=== PATIENT | female | born 1990 | race Caucasian/White ===

== ENCOUNTER 2020-10-05 11:19 | Outpatient (REF) | payer MEDICARE, MEDICAID, SELFPAY ==
[2020-10-05 14:35] LABS: Alanine Aminotransferase 52 U/L (0-31); Albumin Level 4.3 g/dL (3.5-5.0); Alkaline Phosphatase 65 U/L (39-117); Anion Gap 13 (12-20); Aspartate Amino Transferase 39 U/L (5-31); Bilirubin Total 0.6 mg/dL (0.0-1.0); Blood Urea Nitrogen 13 mg/dL (9-16); C Reactive Protein 0.17 mg/dL (< or = 0.50); Carbon Dioxide 26 mmol/L (22-29); Chloride 104 mmol/L (96-108); Estimated Glomerular Filt Rate > 60; Glucose Fasting 83 mg/dL (60-99); Potassium 3.8 mmol/l (3.3-5.1); Sodium 139 mmol/L (135-145); Total Protein 7.4 g/dL (6.5-8.0)
[2020-10-05 14:57] LABS: TSH reflex Free T4 1.43 mIU/mL (0.32-4.0)
[2020-10-05 15:11] LABS: Folate 18.4 ng/mL (> or = 4.0); Vitamin B12 327 pg/mL (200-900)
[2020-10-05 16:17] LABS: Erythrocyte Sedimentation Rate 20 MM/HR (0-20)
[2020-10-07 13:42] LABS: Anti Nuclear Antibody Screen NEGATIVE (NEGATIVE)
== END 2020-10-05 11:20 | disposition home or self-care (01) ==
LOC: HO.HMGCLDS 11:19
PROVIDERS: PCP Internal Medicine; Visit Provider Internal Medicine
DX: D22.9 Melanocytic nevi, unspecified (principal); L98.9 Disorder of the skin and subcutaneous tissue, unspecified; R20.0 Anesthesia of skin; R20.2 Paresthesia of skin
CPT/HCPCS: 36415; 80053; 82306; 82607; 82746; 84443; 85652; 86038; 86039; 86140

== ENCOUNTER 2021-03-10 12:00 | Outpatient (REF) | payer MEDICARE, MEDICAID, SELFPAY ==
[2021-03-12 21:31] LABS: HCV RNA PCR Qn 242000 IU/mL (NOT DETECTED); HCV RNA PCR Qn 5.38 Log IU/mL (NOT DETECTED)
[2021-03-17 16:16] LABS: HCV Genotype LiPA 1a
== END 2021-03-10 12:01 | disposition home or self-care (01) ==
LOC: HO.HMGCLDS 12:00
PROVIDERS: PCP Internal Medicine; Visit Provider Internal Medicine
DX: Z86.19 Personal history of other infectious and parasitic diseases (principal)
CPT/HCPCS: 36415; 87522; 87902

== ENCOUNTER 2021-05-20 10:09 | Outpatient (REF) | payer MEDICARE, MEDICAID, SELFPAY ==
[2021-05-20 12:08] LABS: MANUAL DIFF FLAG NO
[2021-05-20 12:17] LABS: Basophils Percent Auto 0.9 % (0-2); Eosinophils Absolute Auto 0.1 X10*3/uL (0.0-0.4); Eosinophils Percent Auto 2.4 % (0-4); Hematocrit 38.4 % (37-47); Hemoglobin 12.7 g/dl (12.0-16.0); Imm Gran Abs Auto 0.01 X10*3/uL (0.00-0.03); Imm Gran Pct Auto 0.2 % (0.0-0.4); Lymphocytes Absolute Auto 1.9 X10*3/uL (1.2-4.9); Lymphocytes Percent Auto 42.4 % (20-40); Mean Corpuscular HGB Conc 33.1 g/dl (31.0-35.0); Mean Corpuscular Volume 90.6 fL (80-98); Mean Platelet Volume 10.8 fL (9.4-12.3); Monocytes Absolute Auto 0.4 X10*3/uL (0.1-1.2); Monocytes Percent Auto 7.9 % (2-11); Neutrophils Absolute Auto 2.1 X10*3/uL (2.0-8.3); Neutrophils Percent Auto 46.2 % (45-73); Platelet Count 206 X10*3/uL (160-400); Red Blood Count 4.24 X10*6/uL (4.20-5.50); White Blood Count 4.6 X10*3/uL (4.8-10.8)
[2021-05-20 12:32] LABS: Alanine Aminotransferase 72 U/L (0-31); Alkaline Phosphatase 48 U/L (39-117); Anion Gap 12 (12-20); Aspartate Amino Transferase 55 U/L (5-31); Bilirubin Total 0.4 mg/dL (0.0-1.0); Blood Urea Nitrogen 12 mg/dL (9-16); Calcium 9.3 mg/dL (8.4-10.2); Carbon Dioxide 24 mmol/L (22-29); Chloride 107 mmol/L (96-108); Estimated Glomerular Filt Rate > 60; Glucose Random 102 mg/dL (60-115); Potassium 4.1 mmol/L (3.3-5.1); Sodium 139 mmol/L (135-145); Total Protein 7.1 g/dL (6.5-8.0)
[2021-05-20 12:55] LABS: HBS Num1 > 1000.00 mIU/mL (0-7.99); ~Hepatitis B Surface Antibody REACTIVE (Nonreactive)
[2021-05-20 12:59] LABS: HBc Num1 0.23 S/CO (0.00-0.79); HBsAGNum1 0.18 S/CO (0.00-0.99); Hepatitis A Antibody IgM 0.24 Index (0-0.79); Hepatitis B Core Antibody Nonreactive (Nonreactive); Hepatitis B Surface Antigen Negative (Negative); ~HepC Num1 16.63 S/CO (0.00-0.79); ~Hepatitis A Antibody IgM Nonreactive (Nonreactive); ~Hepatitis C Antibody Reactive (Nonreactive)
[2021-05-25 15:42] LABS: HCV Genotype PCR 1a
[2021-05-26 09:32] LABS: FIB-ALT 63 U/L (6-29); FIB-Alpha-2-Macroglobulin 196 mg/dL (106-279); FIB-Apolipoprotein A1 161 mg/dL (101-198); FIB-GGT 18 U/L (3-50); FIB-Haptoglobin 65 mg/dL (43-212); FIB-Total Bilirubin 0.4 mg/dL (0.2-1.2); Liver Fibrosis Stage F0; Nec Inflam Act Grade A1; Nec Inflam Act Score 0.31
== END 2021-05-20 10:10 | disposition home or self-care (01) ==
LOC: HO.LAB 10:09
PROVIDERS: PCP Internal Medicine; Referring Provider Internal Medicine; Visit Provider Internal Medicine Gastroenterology
DX: R76.8 Other specified abnormal immunological findings in serum (principal); K75.81 Nonalcoholic steatohepatitis (NASH)
CPT/HCPCS: 36415; 80053; 81596; 85025; 85610; 86704; 86706; 86709; 86803; 87340; 99202

== ENCOUNTER 2022-12-29 18:48 | Inpatient (IN) | payer MEDICARE, MEDICAID, SELFPAY ==
--- NOTE | ~2022-12-29 | XR_ITS ---
EXAMINATION: XR PELVIS CLINICAL INFORMATION: Right femoral fracture. Pain. COMPARISON: None available. TECHNIQUE: AP view of the pelvis. FINDINGS: Redemonstration of the fracture of the distal femoral neck. No other fracture. Pelvis is normal. No fracture of the left hip. XR/XR pelvis 1-2V IMPRESSION: Redemonstration of fracture of the distal right femoral neck. No additional fracture.
--- NOTE | ~2022-12-29 | FL_ITS ---
EXAMINATION: XR FLUOROSCOPY WITH IMAGES CLINICAL INFORMATION: Right percutaneous pinning. COMPARISON: None available. TECHNIQUE: Fluoroscopy Supervised By: Dr. Syed velasquez. Fluoroscopy Time: 1.3 minutes. Cumulative Dose: 74.7 mGy. DAP: 1.29 Gycm2. Images: 4. FINDINGS: There are 4 digital images revealing 3 screws through the right femoral neck stabilizing femoral neck fracture. There is no dislocation. The soft tissues are normal. FL/FL guidance in OR IMPRESSION: Status post pinning of right femoral neck fracture with [address]
--- NOTE | ~2022-12-29 | XR_ITS ---
EXAMINATION: XR FEMUR, RIGHT CLINICAL INFORMATION: Pain. COMPARISON: None available. TECHNIQUE: AP and lateral views of the right femur were obtained. FINDINGS: Mildly impacted basicervical right femoral neck fracture. The femoral head remains well-seated in the acetabula. No other fractures. No unexpected radiopaque foreign bodies. XR/XR femur RT 2V IMPRESSION: Mildly impacted basicervical right femoral neck fracture.
[2022-12-29 18:54] VITALS: BP 132/84; PULSE 68; O2SAT 99
[2022-12-29 19:04] VITALS: BP 131/85; PULSE 74; RESP 18; TEMP 36.8; O2SAT 96; BMI 29.7
[2022-12-29 20:00] VITALS: BP 110/80; RESP 16; TEMP 36.8
--- NOTE | 2022-12-29 20:41 | ED_ITS ---
HPI - General Adult General Chief complaint: Extremity Injury, Lower Stated complaint: Rt leg pain for 1 hour while walking Time Seen by Provider: 12/29/22 20:41 Source: patient and EMS Mode of arrival: EMS Limitations: no limitations History of Present Illness HPI narrative: Patient is a 32 year old assigned female at with a history of substance use disorder, on methadone, presenting to the emergency department today with right hip pain. Patient states that she was walking around outside when she began to have some mild right hip pain. Patient states that she tried multiple stretches and the pain got significantly worse. Patient adamantly denies any trauma and states that she is safe at home. Patient denies any dizziness, lightheadedness, abdominal pain, nausea, vomiting, fever, chills, blurry vision, double vision, loss of vision, chest pain, difficulty breathing, shortness of breath, back pain, night sweats, pain with urination, increased urinary frequency, increased urinary urgency, blood in her urine or stool, syncope or a near syncopal episode, bowel incontinence, bladder incontinence, bowel retention, bladder retention, or any other complaints at this time. Onset (ago): hour(s) Location: right and lower extremity Radiation: non-radiation Severity: moderate Severity scale (1-10): 5 Pain Consistency: constant Relieving factors: none Exacerbating factors: movement Associated symptoms: denies other symptoms Treatments prior to arrival: none Related Data Home Medications Medication Instructions Recorded Confirmed methadone 5 mg/5 mL oral solution 75 mg PO DAILY 12/25/22 Previous Rx's Medication Instructions Recorded albuterol sulfate 90 mcg/actuation 1 inh inhalation QID PRN shortness 12/25/22 aerosol inhaler (Ventolin HFA) of breath or wheezing #8.5 grams Allergies Allergy/AdvReac Type Severity Reaction Status Date / Time tramadol [Ultram] Allergy Unknown rash Verified 12/25/22 12:48 lorazepam [From ATIVAN] AdvReac Intermediate ANXIETY Verified 12/25/22 12:48 acetaminophen [From TYLENOL] AdvReac Unknown STOMACH Verified 12/25/22 12:48 UPSET clonazepam [From KLONOPIN] AdvReac Unknown ADVERSE Verified 12/25/22 12:48 REACTION Review of Systems Constitutional: Constitutional: Reports no additional constitutional complaints, Denies chills, Denies fever(s) and Denies night sweats Eyes: Eyes: Reports no additional eye complaints, Denies blurry vision, Denies change in vision, Denies diplopia, Denies eye discharge, Denies loss of vision and Denies eye pain ENT: Denies dizziness Cardiovascular: Cardiovascular: Reports no additional cardiovascular complaints, Denies chest pain, Denies lightheadedness, Denies Loss of Consciousness and Denies dyspnea Respiratory: Respiratory: Reports no additional respiratory complaints and Denies dyspnea Gastrointestinal: Gastrointestinal: Reports no additional gastrointestinal complaints, Denies abdominal pain, Denies melena, Denies hematochezia, Denies change in bowel habits and Denies change in stool character Genitourinary: Genitourinary: Denies hematuria, Denies urinary frequency, Denies dysuria, Denies urinary incontinence, Denies urinary hesitancy and Denies urinary urgency Musculoskeletal: Musculoskeletal: Reports no additional musculoskeletal complaints, Denies numbness and Denies tingling Comments: right hip pain Neurologic: Denies dizziness, Denies loss of vision, Denies numbness and Denies tingling Psychiatric: Psychiatric: Reports no additional psychiatric complaints Endocrine: Endocrine: Reports no additional endocrine complaints Hematologic/Lymphatic: Hematologic/Lymphatic: Reports no additional hematologic/lymphatic complaints Allergic/Immunologic: Allergic/Immunologic: Reports no additional allergic/immunologic complaints [facility] Past Medical History Attestation statement: The following information was validated with the patient. Source: old records reviewed and nursing notes reviewed Medical History Bipolar 1 disorder Hepatitis C antibody test positive Hx of hepatitis C Numbness and tingling of both upper extremities Numerous moles Polysubstance abuse Skin lesion of left arm Suicide attempt Surgical History No pertinent past surgical history Family History Family History Father Sleep apnea Diabetes mellitus Diabetic neuropathy Mother Multiple sclerosis Colitis Fibromyalgia Maternal Grandfather CVD (cardiovascular disease) Kidney disease Heart disease Maternal Grandmother Lupus Arthritis Rheumatoid arthritis Paternal Grandfather No problems noted. Paternal Grandmother No problems noted. Brother No problems noted. Sister No problems noted. Son No problems noted. Son No problems noted. Social History Social History Household Members: Family Household Members Other:: RENTS A ROOM Alcohol intake: former Patient Tobacco Use Status: Current everyday Tobacco user Cigarette Packs Per Day: 0.5 Smoked in Last 30 Days: Yes Use of substances other than those prescribed or required for medical reasons: No Substance Use Type: Marijuana Advance Directives: No Advance Directives Information Provided: No Patient : No Current occupational status: disabled Physical Exam ED Vital Signs: Vital Signs - 24 hr 12/29/22 19:04 12/29/22 20:00 Temperature 98.3 F 98.3 F Pulse Rate 74 Respiratory Rate 18 16 Blood Pressure 131/85 110/80 Pulse Oximetry 96 Oxygen Delivery Method Room Air BMI result Body Mass Index 29.7 Const General: cooperative, no acute distress, alert and awake Nutritional Appearance: well nourished Orientation/consciousness: patient oriented x3 Limitations: no limitations HENMT Head: Yes normal to inspection and Yes atraumatic Ears: hearing grossly normal bilaterally and external ears normal General nose exam: Normal external nose present, no nasal discharge noted and no epistaxis Face and sinus: Yes normal facial exam, No abrasion and No laceration Mouth: Normal oral and palatal mucosa present, no drooling and no muffled voice Eyes General: appearance normal, both eyes and all related structures Periorbital: periorbital findings normal Eyelids: Yes eyelids normal Conjunctivae: conjunctivae normal Pupils: Equal, round and reactive pupils present EOM: EOMs intact bilaterally Neck Neck: Yes normal visual inspection, Yes full ROM and Yes no lymphadenopathy Chest Chest palpation & inspection: normal inspection of the chest Resp Effort & Inspection: normal respiratory effort and able to speak in complete sentences Auscultation: clear to auscultation bilaterally Cardio Rate: regular rate Rhythm: regular rhythm GI Inspection: Yes normal to inspection Palpation (GI): Soft to palpation, not firm, nontender and no guarding Back/Spine/Pelvis Cervical Spine: cervical ROM normal Thoracic/Lumbar Spine: thoraco-lumbar ROM normal Pelvis: Other pelvic findings (pain with palpation of the right hip) Coccyx: Other pelvic findings (pain with palpation of the right hip) Neuro General: patient oriented x3 and moves all extremities Cranial nerves: Yes Equal, round and reactive pupils present Cognition (Neuro): normal cognition Motor exam (neuro): 5/5 motor strength present throughout Sensory Exam: Normal double simultaneous stimulation for sensation Coordination: [id number] test normal Extrem General: Yes normal to inspection and Yes capillary refill normal Psych Appearance: grossly normal Mental Status: mental status grossly normal Affect: normal affect Attitude: cooperative Thought process: Normal thought process present Thought content: Normal thought content present Insight: Good insight present (Psych) Medical Decision Making Medical Decision Making MDM Narrative: Patient is a 32 year old assigned female at with a history of substance use disorder, on methadone, presenting to the emergency department today with right hip pain. Patient's physical exam showed right hip pain to palpation. Patient's blood work is pending. Patient's right hip x-ray showed a mildly impacted basicervical right femoral neck fracture. I explained my physical exam findings as well as all test results to the patient. I answered all questions asked by the patient. I spoke to the orthopedic team who agreed to admission with surgery planned for the morning. Patient to be NPO after midnight. Patient verbalized agreement and understanding with this treatment plan and admission. Differential Diagnosis Differential Diagnoses: The differential diagnosis associated with the presentation includes right femur fracture Consult Healthcare Provider Management of the patient was discussed with: Senior Windows Systems Engineer (spoke to the orthopedic team who recommended admission for surgery tomorrow morning) Independent Interpretation I performed an independent interpretation of an: Plain X-Ray Interpretation: My interpretation is in agreement with the radiologist's impression of this imaging study. EXAMINATION: XR FEMUR, RIGHT CLINICAL INFORMATION: Pain.? COMPARISON: None available.? TECHNIQUE: AP and lateral views of the right femur were obtained. FINDINGS: Mildly impacted basicervical right femoral neck fracture. The femoral head remains well-seated in the acetabula. No other fractures. No unexpected radiopaque foreign bodies.? XR/XR femur RT 2V IMPRESSION: Mildly impacted basicervical right femoral neck fracture. Dictated By: Kerry Oropeza Signed By: Electronically signed by Kerry?Sandip 12/29/222031 Independent Historian Clinical information obtained from an independent historian. History obtained from or confirmed by: EMS Critical Care Time Critical Care Time Critical Care Time: Yes Total Critical Care Time: 30 Attestation: I spent 30 minutes of Critical Care Time with this patient. This does not include time spent on separately reported billable procedures. Discharge Plan Discharge Clinical Impression: Femur fracture Patient Disposition: Admitted As Inpatient Prescriptions: No Action methadone 5 mg/5 mL solution 75 mg PO DAILY albuterol sulfate [Ventolin HFA] 90 mcg/actuation HFA aerosol inhaler 1 inh inhalation QID PRN (Reason: shortness of breath or wheezing) Qty: 8.5 1RF
[2022-12-29 21:25] LABS: COVID-19 Test Negative (Negative); IDNOW Serial# BCCEAD1C
[2022-12-29] MEDS: Morphine Sulfate 4 MG/ML CARTRIDGE IVPUSH (21:27)
[2022-12-29] MEDS: ondansetron HCL 4 MG/2 ML VIAL IVPUSH (21:28)
[2022-12-29 21:36] LABS: Basophils Absolute Auto 0.1 X10*3/uL (0.0-0.2); Basophils Percent Auto 0.4 % (0-2); Eosinophils Absolute Auto 0.1 X10*3/uL (0.0-0.4); Eosinophils Percent Auto 0.4 % (0-4); Hematocrit 42.9 % (37.0-47.0); Imm Gran Abs Auto 0.06 X10*3/uL (0.00-0.03); Imm Gran Pct Auto 0.4 % (0.0-0.4); Lymphocytes Absolute Auto 2.4 X10*3/uL (1.2-4.9); Lymphocytes Percent Auto 18.2 % (20-40); MANUAL DIFF FLAG NO; Mean Corpuscular HGB Conc 32.6 g/dl (31.0-35.0); Mean Corpuscular Hemoglobin 29.9 pg (27.0-33.0); Mean Corpuscular Volume 91.5 fL (80.0-98.0); Mean Platelet Volume 10.4 fL (9.4-12.3); Monocytes Absolute Auto 1.1 X10*3/uL (0.1-1.2); Monocytes Percent Auto 7.8 % (2-11); Neutrophils Absolute Auto 9.8 x10*3/uL (2.0-8.3); Neutrophils Percent Auto 72.8 % (45-73); Platelet Count 215 X10*3/uL (160-400); Red Blood Count 4.69 X10*6/uL (4.20-5.50); Red Cell Distribution Width 13.1 % (11.0-16.0); White Blood Count 13.4 X10*3/uL (4.8-10.8)
--- NOTE | 2022-12-29 21:38 | PHA.MEDREC ---
Pharmacy Consult ? Medication Reconciliation Pharmacy has completed the medication reconciliation. Pt takes celexa 40 mg 1/2 bid and buspar 30 mg bid
--- NOTE | 2022-12-29 21:55 | P.HPOP_ITS ---
History of Present Illness History of Present Illness Date of Service: 12/30/22 <Jazmyne Salguero PA-C - Last Filed: 12/30/22 07:40> 12/30/22 <Isidro Lynch MD - Last Filed: 12/30/22 10:39> Chief complaint: Right femoral neck fracture <aJzmyne Salguero PA-C - Last Filed: 12/30/22 07:40> Narrative: Christine Bean is a 32 year old female with a history of substance use disorder ( slean for 3 years) , on methadone, presenting to the emergency department today with right hip pain. Patient states that she was walking around [place] when she developed right hip pain. She states as she continued to [place] the pain became worse to the point she could no longer walk and EMS was called. Patient denies any trauma or recent injury. While in the ED, xrays were obtained which were significant for a Mildly impacted basicervical right femoral neck fracture.. Due to the urgency of this fracture to maintain blood supply and prevent further displacement, the patient was admitted to the orthopedic service for further surgical planning. She states she lives at home with her mother. She lives on the second floor. She does smoke tobacco, denies alcohol or recreational drug use. She is on Methadone and has been clean x3 year. She is unemployed. No other significant medical history. <Jazmyne Salguero PA-C - Last Filed: 12/30/22 07:40> Review of Systems Review of Systems: per hpi <Jazmyne Salguero PA-C - Last Filed: 12/30/22 07:40> [facility] Past Medical History Medical History: Medical History Bipolar 1 disorder Hepatitis C antibody test positive Hx of hepatitis C Numbness and tingling of both upper extremities Numerous moles Polysubstance abuse Skin lesion of left arm Suicide attempt <Jazmyne Salguero PA-C - Last Filed: 12/30/22 07:40> Family History Family History: Family History Father Sleep apnea Diabetes mellitus Diabetic neuropathy Mother Multiple sclerosis Colitis Fibromyalgia Maternal Grandfather CVD (cardiovascular disease) Kidney disease Heart disease Maternal Grandmother Lupus Arthritis Rheumatoid arthritis Paternal Grandfather No problems noted. Paternal Grandmother No problems noted. Brother No problems noted. Sister No problems noted. Son No problems noted. Son No problems noted. <Jazmyne Salguero PA-C - Last Filed: 12/30/22 07:40> Surgical History Surgical History: Surgical History No pertinent past surgical history <Jazmyne Salguero PA-C - Last Filed: 12/30/22 07:40> Social History Social History: Social History Household Members: Family Household Members Other:: RENTS A ROOM Alcohol intake: former Patient Tobacco Use Status: Current everyday Tobacco user Cigarette Packs Per Day: 0.5 Smoked in Last 30 Days: Yes Use of substances other than those prescribed or required for medical reasons: No Substance Use Type: Marijuana Advance Directives: No Advance Directives Information Provided: No Nutrition Risks: No Nutritional Risk Patient : No service: No Current occupational status: disabled <Jazmyne Salguero PA-C - Last Filed: 12/30/22 07:40> Meds Allergies/Adverse reactions: Allergies Allergy/AdvReac Type Severity Reaction Status Date / Time tramadol [Ultram] Allergy Unknown rash Verified 12/25/22 12:48 lorazepam [From ATIVAN] AdvReac Intermediate ANXIETY Verified 12/25/22 12:48 acetaminophen [From TYLENOL] AdvReac Unknown STOMACH Verified 12/25/22 12:48 UPSET clonazepam [From KLONOPIN] AdvReac Unknown ADVERSE Verified 12/25/22 12:48 REACTION <Jazmyne Salguero PA-C - Last Filed: 12/30/22 07:40> Active Medications: Current Medications Acetaminophen (Acetaminophen 325 Mg Tablet) 650 mg PO Q6H PRN PRN Reason: Pain, Mild (Pain Scale 1-3) Celecoxib (Celecoxib 200 Mg Capsule) 200 mg PO BID XIMENA Docusate Sodium (Docusate Sodium 100 Mg Capsule) 100 mg PO BID XIMENA Hydromorphone HCl (Hydromorphone Hcl 0.5 Mg/0.5 Ml Syringe) 0.5 mg IVPUSH Q4H PRN; Protocol PRN Reason: Pain, Severe (Pain Scale 7-10) Lactated Ringer's (Lr) 1,000 mls @ 100 mls/hr IVCONT .Q10H [facility] Cefazolin Sodium/Dextrose (Ancef) 2 gm in 50 mls @ 100 mls/hr IV PREOP ONE Stop: 12/30/22 09:29 Ondansetron HCl (Ondansetron Hcl 4 Mg/2 Ml Vial) 4 mg IVPUSH Q8H PRN PRN Reason: Nausea and Vomiting Oxycodone HCl (Oxycodone Hcl Immed Release 5 Mg Tablet) 10 mg PO Q4H PRN PRN Reason: Pain, Moderate (Pain Scale 4-6 Oxycodone HCl (Oxycodone Hcl Er 10 Mg Tab.Er.12h) 10 mg PO BID [facility] Pharmacy Consult (Consult Rx Perform Med Rec) 1 each MISCELLANE ONCE PRN PRN Reason: Consult order Pharmacy Consult (Consult Rx Perform Med Rec) 1 each MISCELLANE ONCE PRN PRN Reason: Consult order Sodium Chloride (0.9 % Sodium Chloride Flush 3 Ml Syringe) 3 ml IVFLUSH QSHIFT [facility] <Jazmyne Salguero PA-C - Last Filed: 12/30/22 07:40> Home medications: Home Medications Medication Instructions Recorded Confirmed Last Taken Type methadone 5 mg/5 mL oral solution 76 mg PO DAILY 12/25/22 12/29/22 History buspirone 30 mg tablet 1 tab PO BID 12/29/22 12/29/22 12/29/22 History citalopram 40 mg tablet 20 mg PO BID 12/29/22 12/29/22 12/29/22 History clonazepam 0.5 mg tablet 1 tab PO DAILY PRN panic attack 12/29/22 12/29/22 12/29/22 History trazodone 50 mg tablet 1 tab PO BEDTIME 12/29/22 12/29/22 12/28/22 History <Jazmyne Salguero PA-C - Last Filed: 12/30/22 07:40> Physical Exam Vital Signs: Vital Signs: Last Vital Signs Temp 98.3 F 12/29/22 20:00 Pulse 74 12/29/22 19:04 Resp 16 12/29/22 20:00 BP 110/80 12/29/22 20:00 Pulse Ox 96 12/29/22 19:04 O2 Del Method 12/29/22 19:04 BMI result Body Mass Index 29.7 <aJzmyne Salguero PA-C - Last Filed: 12/30/22 07:40> Const: General: cooperative and no acute distress <Jazmyne Salguero PA-C - Last Filed: 12/30/22 07:40> Orientation/consciousness: patient oriented x3 <Jazmyne Salguero PA-C - Last Filed: 12/30/22 07:40> Resp: Effort & Inspection: normal respiratory effort and able to speak in complete sentences <Jazmyne Salguero PA-C - Last Filed: 12/30/22 07:40> Cardio: Peripheral pulses: Peripheral pulses 2+ throughout <Jazmyne Salguero PA-C - Last Filed: 12/30/22 07:40> Neuro: General: patient oriented x3 <Jazmyne Salguero PA-C - Last Filed: 12/30/22 07:40> Extrem: Other: Right hip normal to inspection, pain with log roll, unable to SLR. She is able to plantar and dorsi flex the foor and ankle. NVI. <Jazmyne Salguero PA-C Last Filed: 12/30/22 07:40> Results Labs Result Diagrams: 12/29/22 21:24 12/29/22 21:24 <Jazmyne Salguero PA-C - Last Filed: 12/30/22 07:40> Labs: Abnormal lab results 12/29/22 Range/Units 21:24 WBC 13.4 H (4.8-10.8) X10*3/uL Lymph % (Auto) 18.2 L (20-40) % Abs Immat Gran (auto) 0.06 H (0.00-0.03) X10*3/uL Absolute Neuts (auto) 9.8 H (2.0-8.3) x10*3/uL H & H 12/29/22 Range/Units 21:24 Hgb 14.0 (12.0-16.0) g/dl Hct 42.9 (37.0-47.0) % All other labs normal. <Jazmyne Salguero PA-C - Last Filed: 12/30/22 07:40> Assessment and Plan (1) Femur fracture: Status: Acute <Jazmyne Salguero PA-C - Last Filed: 12/30/22 07:40> I discussed the case with Dr Lynch and due to the urgency of this fracture to maintain blood supply and prevent further displacement, the recommendation is surgical intervention. I explained the extent of the injury to the patient along with the recommended plan for surgical intervention. I explained the procedure in detail along with the length of recovery and rehab course. I explained the risk, benefits and alternatives of surgical vs non surgical intervention. Risk of surgical intervention including, but not limited to infection, blood clots, bleeding, non union or malunion and nerve/tissue damage to surrounding areas. Non-surgical intervention could pose a risk of displacement and instability of the fracture, disrupting the blood supply resulting in necrosis of the femoral head. I've answered all their questions and with their understanding they have consented to move forward with Operative Fixation of the right femur . The patient will be T&S, med clearance obtained and NPO after midnight. <Jazmyne Salguero PA-C - Last Filed: 12/30/22 07:40> Time Spent With Patient Time: Total time managing care of this patient today ____ minutes. <Jazmyne Salguero PA-C - Last Filed: 12/30/22 07:40> Quality Stroke Does the patient have a stroke diagnosis?: No <Jazmyne Salguero PA-C - Last Filed: 12/30/22 07:40> VTE Prior VTE?: No <Jazmyne Salguero PA-C - Last Filed: 12/30/22 07:40> VTE Risk Level:: Surgical - high <Jazmyne Salguero PA-C - Last Filed: 12/30/22 07:40> VTE Device Contraindication: N/A - Device Ordered <Jazmyne Salguero PA-C - Last Filed: 12/30/22 07:40> VTE Drug Contraindication: Treatment Not Indicated <Jazmyne Salguero PA-C - Last Filed: 12/30/22 07:40> Procedures Date of Service Date of Service: 12/30/22 <Jazmyne Salguero PA-C - Last Filed: 12/30/22 07:40>
[2022-12-29 22:04] LABS: INTERNATIONAL NORM RATIO 0.9 (0.9-1.1); Prothrombin Time 10.6 SEC (10.0-13.1)
[2022-12-29 22:37] LABS: Anion Gap 12 (12-20); Blood Urea Nitrogen 18 mg/dL (9-16); Calcium 9.2 mg/dL (8.4-10.2); Carbon Dioxide 29 mmol/L (22-29); Chloride 104 mmol/L (96-108); Creatinine Clr Calc Pharmacy 106.3; Estimated Glomerular Filt Rate > 60; Glucose Random 86 mg/dL (60-115); Sodium 141 mmol/L (135-145)
[2022-12-29] MEDS: traZODone HCL 50 MG TABLET PO (22:43)
[2022-12-29] MEDS: Lactated Ringers 1,000 ML 100 ML IVCONT (22:43)
[2022-12-29] MEDS: oxyCODONE HCl ER 10 MG TAB.ER.12H PO (22:43)
--- NOTE | 2022-12-29 22:52 | MHC.CM.PN ---
Addendum entered by Stella Hilliard 12/29/22 22:58: HCP [facility] No ([phone]). Original Note: IMM 12/29. Met with admitted patient with bed assignment pending. NPO after MN-ortho surgical repair of R femoral neck fx. Live with mother on second floor. Has no DME/Services. HCP on file. Verified. Moderna x3. Daily methadone 76 mg. Receives methadone from [facility] in [place] ([phone]). D/C plan: pending ortho recommendations, PT. No referrals made at this time. CM following for discharge planning.
--- NOTE | 2022-12-29 22:55 | PC.NURSE ---
Pt aox3 in no apparent distress. U/S guided IV line (20G) place by MD on 2nd attempt. Pt tolerated well. Medicated as ordered. Will continue to monitor.
[2022-12-30] VITALS (12 sets, daily range): BP systolic 100–138; BP diastolic 62–100; PULSE 50–78; RESP 12–20; TEMP 36.1–37.5; O2SAT 96–100
[2022-12-30] MEDS: 0.9 % Sodium Chloride Flush 3 ML SYRINGE IVFLUSH ×2 (01:47→19:43)
[2022-12-30] MEDS: HYDROmorphone HCl 0.5 MG/0.5 ML SYRINGE IVPUSH ×5 (01:47→19:42)
--- NOTE | 2022-12-30 01:57 | PC.NURSE ---
Pt aox3. Tearful. Reporting pain, 10/10. Medicated as ordered for pain. Pt placed on 2L NC as ordered. 16F dexter cath inserted. 300cc of clear brick colored urine in the collection bag. Pt tolerated well. Incentive spirometer education provided to pt and encouraged use. Pt demonstrated correct use of spirometer.
--- NOTE | 2022-12-30 02:42 | PC.NURSE ---
Pt aox4 resting at the bedside. VSS. Breaths are even, regular, and unlabored. 2L NC in place as ordered. Pt reports obtaining some pain relief with Dilaudid. Pt no longer tearful. Encouraged to continue use of incentive spirometer. LR running at 100ml/hr on L AC as ordered. Will continue to monitor.
--- NOTE | 2022-12-30 05:26 | PC.NURSE ---
Pt asleep at the bedside in no apparent distress. Breaths are even and unlabored with equal chest rises. Will continue to monitor.
[2022-12-30 06:51] LABS: MANUAL DIFF FLAG NO
[2022-12-30 06:52] LABS: Basophils Absolute Auto 0.1 X10*3/uL (0.0-0.2); Basophils Percent Auto 0.9 % (0-2); Eosinophils Absolute Auto 0.1 X10*3/uL (0.0-0.4); Eosinophils Percent Auto 1.2 % (0-4); Hematocrit 40.2 % (37.0-47.0); Hemoglobin 12.8 g/dl (12.0-16.0); Imm Gran Abs Auto 0.02 X10*3/uL (0.00-0.03); Imm Gran Pct Auto 0.2 % (0.0-0.4); Lymphocytes Absolute Auto 2.8 X10*3/uL (1.2-4.9); Lymphocytes Percent Auto 34.4 % (20-40); Mean Corpuscular HGB Conc 31.8 g/dl (31.0-35.0); Mean Corpuscular Hemoglobin 30.1 pg (27.0-33.0); Mean Corpuscular Volume 94.6 fL (80.0-98.0); Mean Platelet Volume 10.3 fL (9.4-12.3); Monocytes Absolute Auto 0.8 X10*3/uL (0.1-1.2); Monocytes Percent Auto 9.9 % (2-11); Neutrophils Absolute Auto 4.3 x10*3/uL (2.0-8.3); Neutrophils Percent Auto 53.4 % (45-73); Platelet Count 187 X10*3/uL (160-400); Red Blood Count 4.25 X10*6/uL (4.20-5.50); Red Cell Distribution Width 13.1 % (11.0-16.0); White Blood Count 8.1 X10*3/uL (4.8-10.8)
--- NOTE | 2022-12-30 07:14 | PC.NURSE ---
attempted to obtain methadone verification from [facility] - facility not open at this time
[2022-12-30 07:15] LABS: Anion Gap 14 (12-20); Blood Urea Nitrogen 16 mg/dL (9-16); Calcium 8.3 mg/dL (8.4-10.2); Carbon Dioxide 22 mmol/L (22-29); Chloride 107 mmol/L (96-108); Creatinine Clr Calc Pharmacy 125.9; Estimated Glomerular Filt Rate > 60; Glucose Fasting 93 mg/dL (60-99); Potassium 5.5 mmol/L (3.3-5.1); Sodium 137 mmol/L (135-145)
[2022-12-30] MEDS: Lactated Ringers 1,000 ML 100 ML IVCONT ×3 (07:22→23:29)
--- NOTE | 2022-12-30 07:57 | PC.NURSE ---
Methadone Verification completed and sent to pharmacy
--- NOTE | 2022-12-30 08:38 | P.CONAN_ITS ---
HPI - Anesthesia Eval Consult details Narrative: right femur fracture PMFSH Active Problems Active Problems: All Active Problems (Updated 12/29/22 @ 21:07 by CARLITOS Esteban) Femur fracture (Acute) Shortness of breath (Acute) Hepatitis C antibody test positive (Acute) Hx of hepatitis C (Acute) Skin lesion of left arm (Acute) Numerous moles (Acute) Numbness and tingling of both upper extremities (Acute) Polysubstance abuse (Acute) Bipolar 1 disorder (Acute) Past Medical History Medical History (Updated 12/30/22 @ 11:02 by Sylvain Fink MD) Asthma Bipolar 1 disorder Hepatitis C antibody test positive Hx of hepatitis C Numbness and tingling of both upper extremities Numerous moles Polysubstance abuse Skin lesion of left arm Suicide attempt Family History Family History Father Sleep apnea Diabetes mellitus Diabetic neuropathy Mother Multiple sclerosis Colitis Fibromyalgia Maternal Grandfather CVD (cardiovascular disease) Kidney disease Heart disease Maternal Grandmother Lupus Arthritis Rheumatoid arthritis Paternal Grandfather No problems noted. Paternal Grandmother No problems noted. Brother No problems noted. Sister No problems noted. Son No problems noted. Son No problems noted. Family history of problems with anesthesia: No Surgical History Surgical History No pertinent past surgical history History of Problems with Anesthesia: No Social History Social History Household Members: Family Household Members Other:: RENTS A ROOM Alcohol intake: former Patient Tobacco Use Status: Current everyday Tobacco user Cigarette Packs Per Day: 0.5 Smoked in Last 30 Days: Yes Use of substances other than those prescribed or required for medical reasons: No Substance Use Type: Marijuana Advance Directives: No Advance Directives Information Provided: No Nutrition Risks: No Nutritional Risk Patient : No service: No Current occupational status: disabled Meds Allergies Allergy/AdvReac Type Severity Reaction Status Date / Time tramadol [Ultram] Allergy Unknown rash Verified 12/25/22 12:48 lorazepam [From ATIVAN] AdvReac Intermediate ANXIETY Verified 12/25/22 12:48 acetaminophen [From TYLENOL] AdvReac Unknown STOMACH Verified 12/25/22 12:48 UPSET clonazepam [From KLONOPIN] AdvReac Unknown ADVERSE Verified 12/25/22 12:48 REACTION Active Medications: Current Medications Acetaminophen (Acetaminophen 325 Mg Tablet) 650 mg PO Q6H PRN PRN Reason: Pain, Mild (Pain Scale 1-3) Albuterol Sulfate (Albuterol Sulfate 90 Mcg 8 Gm Inhaler) 1 puff INHALE QID PRN PRN Reason: shortness of breath or wheezing Buspirone HCl (Buspirone Hcl 10 Mg Tablet) 30 mg PO BID [facility] Celecoxib (Celecoxib 200 Mg Capsule) 200 mg PO BID [facility] Clonazepam (Clonazepam 0.5 Mg Tablet) 0.5 mg PO DAILY PRN PRN Reason: panic attack Docusate Sodium (Docusate Sodium 100 Mg Capsule) 100 mg PO BID [facility] Escitalopram Oxalate (Escitalopram Oxalate 10 Mg Tablet) 10 mg PO BID [facility] Hydromorphone HCl (Hydromorphone Hcl 0.5 Mg/0.5 Ml Syringe) 0.5 mg IVPUSH Q4H PRN; Protocol PRN Reason: Pain, Severe (Pain Scale 7-10) Last Admin: 12/30/22 06:53 Dose: 0.5 mg Lactated Ringer's (Lr) 1,000 mls @ 100 mls/hr IVCONT .Q10H [facility] Last Admin: 12/30/22 07:22 Dose: 100 mls/hr Cefazolin Sodium/Dextrose (Ancef) 2 gm in 50 mls @ 100 mls/hr IV PREOP ONE Stop: 12/30/22 09:29 Ondansetron HCl (Ondansetron Hcl 4 Mg/2 Ml Vial) 4 mg IVPUSH Q8H PRN PRN Reason: Nausea and Vomiting Oxycodone HCl (Oxycodone Hcl Immed Release 5 Mg Tablet) 10 mg PO Q4H PRN PRN Reason: Pain, Moderate (Pain Scale 4-6 Oxycodone HCl (Oxycodone Hcl Er 10 Mg Tab.Er.12h) 10 mg PO BID [facility] Last Admin: 12/29/22 22:43 Dose: 10 mg Pharmacy Consult (Consult Rx Perform Med Rec) 1 each MISCELLANE ONCE PRN PRN Reason: Consult order Sodium Chloride (0.9 % Sodium Chloride Flush 3 Ml Syringe) 3 ml IVFLUSH QSHIFT [facility] Last Admin: 12/30/22 07:15 Dose: Not Given Trazodone HCl (Trazodone Hcl 50 Mg Tablet) 50 mg PO BEDTIME [facility] Last Admin: 12/29/22 22:43 Dose: 50 mg Home Medications Medication Instructions Recorded Confirmed Last Taken Type methadone 5 mg/5 mL oral solution 76 mg PO DAILY 12/25/22 12/29/22 History buspirone 30 mg tablet 1 tab PO BID 12/29/22 12/29/22 12/29/22 History citalopram 40 mg tablet 20 mg PO BID 12/29/22 12/29/22 12/29/22 History clonazepam 0.5 mg tablet 1 tab PO DAILY PRN panic attack 12/29/22 12/29/22 12/29/22 History trazodone 50 mg tablet 1 tab PO BEDTIME 12/29/22 12/29/22 12/28/22 History Exam Exam Date and Time: December 30, 2022 0838 Height,Weight and Vital Signs: Height 5 ft 7 in Weight 86.183 kg Last Vital Signs Temp 97.9 F 12/30/22 06:22 Pulse 50 12/30/22 06:22 Resp 14 12/30/22 06:22 BP 107/64 12/30/22 06:22 Pulse Ox 99 12/30/22 06:22 O2 Del Method 12/30/22 06:22 O2 Flow Rate 2 12/30/22 06:22 Pertinent Lab Results Pertinent Lab Results: Laboratory Tests 12/29/22 12/29/22 12/29/22 21:04 21:24 21:24 WBC 13.4 H RBC 4.69 Hgb 14.0 Hct 42.9 MCV 91.5 MCH 29.9 MCHC 32.6 RDW 13.1 Plt Count 215 MPV 10.4 Immature Gran % (Auto) 0.4 Neut % (Auto) 72.8 Lymph % (Auto) 18.2 L [place] % (Auto) 7.8 Eos % (Auto) 0.4 Baso % (Auto) 0.4 Lymph # (Auto) 2.4 [place] # (Auto) 1.1 Eos # (Auto) 0.1 Baso # (Auto) 0.1 Abs Immat Gran (auto) 0.06 H Absolute Neuts (auto) 9.8 H Absolute Nucleated RBC 0.000 Nucleated RBC % (auto) 0.0 PT 10.6 INR 0.9 Sodium Potassium Chloride Carbon Dioxide Anion Gap BUN Creatinine Estim Creat Clear Calc Estimated GFR Random Glucose Fasting Glucose Calcium COVID-19 (FAWAD) Negative COVID-19 [facility] See Note Blood Type Antibody Screen 12/29/22 12/29/22 12/30/22 22:04 22:04 06:46 WBC 8.1 RBC 4.25 Hgb 12.8 Hct 40.2 MCV 94.6 MCH 30.1 MCHC 31.8 RDW 13.1 Plt Count 187 MPV 10.3 Immature Gran % (Auto) 0.2 Neut % (Auto) 53.4 Lymph % (Auto) 34.4 [place] % (Auto) 9.9 Eos % (Auto) 1.2 Baso % (Auto) 0.9 Lymph # (Auto) 2.8 [place] # (Auto) 0.8 Eos # (Auto) 0.1 Baso # (Auto) 0.1 Abs Immat Gran (auto) 0.02 Absolute Neuts (auto) 4.3 Absolute Nucleated RBC 0.000 Nucleated RBC % (auto) 0.0 PT INR Sodium 141 Potassium 4.0 Chloride 104 Carbon Dioxide 29 Anion Gap 12 BUN 18 H Creatinine 0.84 Estim Creat Clear Calc 106.3 Estimated GFR > 60 Random Glucose 86 Fasting Glucose Calcium 9.2 COVID-19 (FAWAD) [employer] Blood Type O Positive Antibody Screen NEGATIVE 12/30/22 06:46 WBC RBC Hgb Hct MCV MCH MCHC RDW Plt Count MPV Immature Gran % (Auto) Neut % (Auto) Lymph % (Auto) [place] % (Auto) Eos % (Auto) Baso % (Auto) Lymph # (Auto) [place] # (Auto) Eos # (Auto) Baso # (Auto) Abs Immat Gran (auto) Absolute Neuts (auto) Absolute Nucleated RBC Nucleated RBC % (auto) PT INR Sodium 137 Potassium 5.5 H D Chloride 107 Carbon Dioxide 22 Anion Gap 14 BUN 16 Creatinine 0.71 Estim Creat Clear Calc 125.9 Estimated GFR > 60 Random Glucose Fasting Glucose 93 Calcium 8.3 L D COVID-19 (FAWAD) [employer] Blood Type Antibody Screen Airway Mallampati Class: II TM Dist: >3cm Neck ROM: Full Loose/Missing/Broken Teeth: No Heart: RRR Lungs: CTA Assessment and Plan Assessment Anesthesia Assessment: Anesthesia Plan Discussed, Smoking Cess. Discussed and Chart Reviewed Final Anesthetic Review Family History of Problems with Anesthesia: No History of Problems with Anesthesia: No NPO: Yes ASA Class: III Final Preanesthetic Review: No Changes in Pt Med Stat, Meds/Allgs Chart Reviewed, Consent Obtained/Reviewed and Anes Risks/Benef Reviewed Patient Risk: Intermediate Procedure Risk: Intermediate Anesthetic Plan Anesthetic Plan: GA Disposition: Standard PACU
--- NOTE | 2022-12-30 09:07 | HE.PHANOTE ---
Pharmacy has received patients methadone verification. Patient receives [facility], 75 mg and picked up 1 week worth 12/29.
[2022-12-30] MEDS: methADONE HCl 20 MG/2 ML ORAL.CONC 75 MG PO (09:20)
--- NOTE | 2022-12-30 09:26 | MHC.RECOVRN ---
Met with pt in overflow after consult placed to Addiction Medicine for substance use. Pt currently receives methadone from [facility] and has been in recovery x 3.5 years. Pt reports boyfriend 3.5 years ago and was a wake up call for pt. Pt reports 7/10 pain currently and plan for surgery this morning. Pt educated regarding advocacy for pain management. Pt lives with mother on second floor, reports living in a safe and supportive environment. Denies questions or concerns at this time. T/w available as needed. Discussed with Brisa Sousa APRN.
--- NOTE | 2022-12-30 10:39 | MHC.SHP ---
Pre-Procedural Eval Section A Date of Service: 12/30/22 The patient is an INPATIENT: Yes Changes since office visit: No Cold of Flu in the past 2 weeks, No New Medical Problems, No Changes in Medication and No Patient answered all questions The History & Physical has been completed within 30 days and I have reviewed it.: Yes Section B Chief Complaint: Right femoral neck fracture Allergies: Allergies Allergy/AdvReac Type Severity Reaction Status Date / Time tramadol [Ultram] Allergy Unknown rash Verified 12/25/22 12:48 lorazepam [From ATIVAN] AdvReac Intermediate ANXIETY Verified 12/25/22 12:48 acetaminophen [From TYLENOL] AdvReac Unknown STOMACH Verified 12/25/22 12:48 UPSET clonazepam [From KLONOPIN] AdvReac Unknown ADVERSE Verified 12/25/22 12:48 REACTION Plan I have reviewed the history and physical and performed a pertinent physical examination on my patient. No changes have occurred unless specified. Time Spent With Patient Time: Total time managing care of this patient today ____ minutes.
--- NOTE | 2022-12-30 10:40 | P.BOP_ITS ---
Brief Operative Note Date of Service: 12/30/22 Pre-op diagnosis: Right femoral neck fracture Post-op diagnosis: same Procedure: CRPP right hip Implants: José 8.0 105,105,100 mm Surgeon: Isidro Lynch MD Anesthesia: GLMA and local Was an Wool Hat Sanding Machine Operator used for this Procedure?: No Estimated blood loss (mL): 50 IV fluids (mL): 100 Pathology: none sent Condition: stable Disposition: PACU
[2022-12-30] MEDS: oxyCODONE HCl Immed Release 5 MG TABLET 10 MG PO (11:02)
[2022-12-30] MEDS: Acetaminophen 1,000 MG/100 ML PIGGYBACK 400 MG IV (11:06)
--- NOTE | 2022-12-30 11:27 | HO.PM.IMCN ---
History of Present Illness Data of Consult Service Date: 12/30/22 Requesting physician: Jazmyne Salguero Primary Care Provider: Pam Brito MD [facility] Reason for consult: medical management 32-year-old female with history of anxiety/depression, history of hepatitis-C, current everyday smoker, and history of opioid abuse on chronic methadone therapy admitted to Orthopedic surgery for management of right femoral neck fracture s/p CRPP right hip pod 0 with consult placed to hospital medicine for medical management. She is currently reporting a 6/10 pain in the right hip. States she takes 75 mg of methadone daily and her sister will be bringing in her supply. She has not had any drug use in the last 3.5 years. Follows with [facility] methadone clinic. She denies any alcohol use. She does smoke 1/2 pack cigarettes daily with a 10 pack-year history. No other complaints at this time. Review of Systems Review of Systems: Yes all other systems are reviewed and are negative [facility] Medical History (Updated 12/30/22 @ 12:14 by CARLITOS Briceno) Asthma Bipolar 1 disorder Depression with anxiety Hepatitis C Hepatitis C antibody test positive Hx of hepatitis C Numbness and tingling of both upper extremities Numerous moles Polysubstance abuse Skin lesion of left arm Suicide attempt Family History Father Sleep apnea Diabetes mellitus Diabetic neuropathy Mother Multiple sclerosis Colitis Fibromyalgia Maternal Grandfather CVD (cardiovascular disease) Kidney disease Heart disease Maternal Grandmother Lupus Arthritis Rheumatoid arthritis Paternal Grandfather No problems noted. Paternal Grandmother No problems noted. Brother No problems noted. Sister No problems noted. Son No problems noted. Son No problems noted. Surgical History No pertinent past surgical history Social History Household Members: Family Household Members Other:: RENTS A ROOM Alcohol intake: former Patient Tobacco Use Status: Current everyday Tobacco user Cigarette Packs Per Day: 0.5 Smoked in Last 30 Days: Yes Use of substances other than those prescribed or required for medical reasons: No Substance Use Type: Marijuana Advance Directives: No Advance Directives Information Provided: No Nutrition Risks: No Nutritional Risk Patient : No service: No Current occupational status: disabled Meds Allergies Allergy/AdvReac Type Severity Reaction Status Date / Time tramadol [Ultram] Allergy Unknown rash Verified 12/25/22 12:48 lorazepam [From ATIVAN] AdvReac Intermediate ANXIETY Verified 12/25/22 12:48 acetaminophen [From TYLENOL] AdvReac Unknown STOMACH Verified 12/25/22 12:48 UPSET clonazepam [From KLONOPIN] AdvReac Unknown ADVERSE Verified 12/25/22 12:48 REACTION Active Medications: Current Medications Acetaminophen (Acetaminophen 325 Mg Tablet) 650 mg PO Q6H PRN PRN Reason: Pain, Mild (Pain Scale 1-3) Albuterol Sulfate (Albuterol Sulfate 90 Mcg 8 Gm Inhaler) 1 puff INHALE QID PRN PRN Reason: shortness of breath or wheezing Albuterol Sulfate (Albuterol Sulfate (0.083%) 2.5 Mg/3 Ml Vial.Neb) 2.5 mg INHALE ONCE PRN PRN Reason: Wheezing Buspirone HCl (Buspirone Hcl 10 Mg Tablet) 30 mg PO BID [facility] Celecoxib (Celecoxib 200 Mg Capsule) 200 mg PO BID [facility] Clonazepam (Clonazepam 0.5 Mg Tablet) 0.5 mg PO DAILY PRN PRN Reason: panic attack Docusate Sodium (Docusate Sodium 100 Mg Capsule) 100 mg PO BID [facility] Escitalopram Oxalate (Escitalopram Oxalate 10 Mg Tablet) 10 mg PO BID [facility] Fentanyl (Fentanyl Citrate/Pf 100 Mcg/2 Ml Vial) 50 mcg IVPUSH Q5M PRN; Protocol PRN Reason: Pain, Severe (Pain Scale 7-10) Hydromorphone HCl (Hydromorphone Hcl 0.5 Mg/0.5 Ml Syringe) 0.5 mg IVPUSH Q4H PRN; Protocol PRN Reason: Pain, Severe (Pain Scale 7-10) Last Admin: 12/30/22 06:53 Dose: 0.5 mg Hydromorphone HCl (Hydromorphone Hcl 0.5 Mg/0.5 Ml Syringe) 0.5 mg IVPUSH Q5M PRN; Protocol PRN Reason: Pain, Severe (Pain Scale 7-10) Last Admin: 12/30/22 11:00 Dose: 0.5 mg Lactated Ringer's (Lr) 1,000 mls @ 100 mls/hr IVCONT .Q10H [facility] Last Admin: 12/30/22 07:22 Dose: 100 mls/hr Promethazine HCl 12.5 mg/ (Sodium Chloride) 50.5 mls @ 202 mls/hr IV ONCE PRN PRN Reason: Nausea and Vomiting Methadone HCl (Methadone Hcl 20 Mg/2 Ml Oral.Conc) 75 mg PO DAILY [facility] Last Admin: 12/30/22 09:20 Dose: 75 mg Ondansetron HCl (Ondansetron Hcl 4 Mg/2 Ml Vial) 4 mg IVPUSH Q8H PRN PRN Reason: Nausea and Vomiting Oxycodone HCl (Oxycodone Hcl Immed Release 5 Mg Tablet) 10 mg PO Q4H PRN PRN Reason: Pain, Moderate (Pain Scale 4-6 Last Admin: 12/30/22 11:02 Dose: 10 mg Oxycodone HCl (Oxycodone Hcl Er 10 Mg Tab.Er.12h) 10 mg PO BID [facility] Last Admin: 12/29/22 22:43 Dose: 10 mg Pharmacy Consult (Consult Rx Perform Med Rec) 1 each MISCELLANE ONCE PRN PRN Reason: Consult order Sodium Chloride (0.9 % Sodium Chloride Flush 3 Ml Syringe) 3 ml IVFLUSH QSHIFT [facility] Last Admin: 12/30/22 07:15 Dose: Not Given Trazodone HCl (Trazodone Hcl 50 Mg Tablet) 50 mg PO BEDTIME [facility] Last Admin: 12/29/22 22:43 Dose: 50 mg Home Medications Medication Instructions Recorded Confirmed Last Taken Type methadone 5 mg/5 mL oral solution 76 mg PO DAILY 12/25/22 12/29/22 History buspirone 30 mg tablet 1 tab PO BID 12/29/22 12/29/22 12/29/22 History citalopram 40 mg tablet 20 mg PO BID 12/29/22 12/29/22 12/29/22 History clonazepam 0.5 mg tablet 1 tab PO DAILY PRN panic attack 12/29/22 12/29/22 12/29/22 History trazodone 50 mg tablet 1 tab PO BEDTIME 12/29/22 12/29/22 12/28/22 History Physical Exam Vital Signs and Narrative: Vital Signs: Last Vital Signs Temp 99.5 F 12/30/22 10:55 Pulse 63 12/30/22 11:15 Resp 16 12/30/22 11:15 BP 125/71 12/30/22 11:15 Pulse Ox 100 12/30/22 11:15 O2 Del Method 12/30/22 11:15 O2 Flow Rate 3 12/30/22 11:15 BMI result Body Mass Index 29.7 Constitutional - Awake and Alert, No apparent distress Eyes - PERRLA, EOMI Cardiovascular - S1S2, RRR, No edema Respiratory - Normal lung expansion, Normal respiratory effort, No respiratory distress, CTA bilaterally Gastrointestinal - NT / ND; +BS; No rebound or guarding Extremities - no calf tenderness bilaterally, no swelling Skin - Warm/Dry Neurological - Alert & oriented x3 Psychological - Appropriate affect Results Labs 12/30/22 06:46 12/30/22 06:46 Labs: Laboratory Results - last 24 hr 12/29/22 12/29/22 12/29/22 21:04 21:24 21:24 MCV 91.5 MCH 29.9 MCHC 32.6 RDW 13.1 Plt Count 215 MPV 10.4 Immature Gran % (Auto) 0.4 Neut % (Auto) 72.8 Lymph % (Auto) 18.2 L [place] % (Auto) 7.8 Eos % (Auto) 0.4 Baso % (Auto) 0.4 Lymph # (Auto) 2.4 [place] # (Auto) 1.1 Eos # (Auto) 0.1 Baso # (Auto) 0.1 Abs Immat Gran (auto) 0.06 H Absolute Neuts (auto) 9.8 H Absolute Nucleated RBC 0.000 Nucleated RBC % (auto) 0.0 PT 10.6 INR 0.9 Anion Gap Estim Creat Clear Calc Estimated GFR Random Glucose Fasting Glucose Calcium COVID-19 (FAWAD) Negative COVID-19 Clin Com See Note Blood Type Antibody Screen 12/29/22 12/29/22 12/30/22 22:04 22:04 06:46 MCV 94.6 MCH 30.1 MCHC 31.8 RDW 13.1 Plt Count 187 MPV 10.3 Immature Gran % (Auto) 0.2 Neut % (Auto) 53.4 Lymph % (Auto) 34.4 [place] % (Auto) 9.9 Eos % (Auto) 1.2 Baso % (Auto) 0.9 Lymph # (Auto) 2.8 [place] # (Auto) 0.8 Eos # (Auto) 0.1 Baso # (Auto) 0.1 Abs Immat Gran (auto) 0.02 Absolute Neuts (auto) 4.3 Absolute Nucleated RBC 0.000 Nucleated RBC % (auto) 0.0 PT INR Anion Gap 12 Estim Creat Clear Calc 106.3 Estimated GFR > 60 Random Glucose 86 Fasting Glucose Calcium 9.2 COVID-19 (FAWAD) COVID-19 Clin Com Blood Type O Positive Antibody Screen NEGATIVE 12/30/22 06:46 MCV MCH MCHC RDW Plt Count MPV Immature Gran % (Auto) Neut % (Auto) Lymph % (Auto) [place] % (Auto) Eos % (Auto) Baso % (Auto) Lymph # (Auto) [place] # (Auto) Eos # (Auto) Baso # (Auto) Abs Immat Gran (auto) Absolute Neuts (auto) Absolute Nucleated RBC Nucleated RBC % (auto) PT INR Anion Gap 14 Estim Creat Clear Calc 125.9 Estimated GFR > 60 Random Glucose Fasting Glucose 93 Calcium 8.3 L D COVID-19 (FAWAD) COVID-19 Clin Com Blood Type Antibody Screen Imaging Radiologist's Impressions: Impressions Femur X-Ray 12/29/22 19:41 IMPRESSION: Mildly impacted basicervical right femoral neck fracture. Pelvis X-Ray 12/29/22 21:45 IMPRESSION: Redemonstration of fracture of the distal right femoral neck. No additional fracture. Assessment and Plan (1) Femur fracture: Status: Acute (2) Hepatitis C: Status: Acute Plan 32-year-old female with history of anxiety/depression, history of hepatitis-C, current everyday smoker, and history of opioid abuse on chronic methadone therapy admitted to Orthopedic surgery for management of right femoral neck fracture s/p CRPP right hip pod 0 with consult placed to hospital medicine for medical management. #right femoral neck fracture s/p CRPP -pod 0 -plan per orthopedic surgery # anxiety/depression -continue Celexa, clonazepam, trazodone, BuSpar # substance use disorder on chronic methadone therapy -patient's sister to bring in on supply of methadone 76 mg daily. Will give to nurse to be entered by pharmacy -seen by [facility], following with [facility] in [place] for methadone # hepatitis-C -diagnosed in 02/2021 with HCV RNA PCR of 242,000 -initially seen by Gastroenterology, but did not start in therapy -expresses interest to initiate therapy. Will place referral to Gastroenterology on discharge # cigarette smoker -0.5 pack per day with 10 pack-year history -declines NRT but does desire to quit and will do so cold turkey per the patient. Also recommended hypnosis -cessation counseling provided #Pseukohyperkalemia -K5.5- specimen markedly hemolyzed -Can repeat AM, no intervention needed Thank you for allowing me to participate in this consult. Signing off at this time. Please do not hesitate to call for further questions. Time Spent With Patient Time: Total time managing care of this patient today ____ minutes.
[2022-12-30] MEDS: oxyCODONE HCl ER 10 MG TAB.ER.12H PO ×2 (11:29→20:58)
[2022-12-30] MEDS: ceFAZolin Sodium/Dextrose,Iso 2 GM/50 ML PIGGYBACK IV (15:25)
[2022-12-30] MEDS: clonazePAM 0.5 MG TABLET PO (18:04)
[2022-12-30] MEDS: Escitalopram Oxalate 10 MG TABLET PO (20:57)
[2022-12-30] MEDS: busPIRone HCl 10 MG TABLET 30 MG PO (20:57)
[2022-12-30] MEDS: Docusate Sodium 100 MG CAPSULE PO (20:57)
[2022-12-30] MEDS: Celecoxib 200 MG CAPSULE PO (20:57)
[2022-12-30] MEDS: traZODone HCL 50 MG TABLET PO (20:58)
[2022-12-31 00:19] VITALS: BP 118/66; PULSE 59; RESP 16; TEMP 36.1; O2SAT 95
[2022-12-31] MEDS: HYDROmorphone HCl 0.5 MG/0.5 ML SYRINGE IVPUSH ×4 (01:18→23:36)
[2022-12-31 07:12] LABS: MANUAL DIFF FLAG NO
[2022-12-31 07:14] LABS: Basophils Percent Auto 0.2 % (0-2); Eosinophils Percent Auto 0.1 % (0-4); Hematocrit 36.1 % (37.0-47.0); Hemoglobin 11.5 g/dl (12.0-16.0); Imm Gran Abs Auto 0.04 X10*3/uL (0.00-0.03); Imm Gran Pct Auto 0.4 % (0.0-0.4); Lymphocytes Absolute Auto 2.1 X10*3/uL (1.2-4.9); Lymphocytes Percent Auto 19.2 % (20-40); Mean Corpuscular HGB Conc 31.9 g/dl (31.0-35.0); Mean Corpuscular Hemoglobin 29.5 pg (27.0-33.0); Mean Corpuscular Volume 92.6 fL (80.0-98.0); Mean Platelet Volume 11.1 fL (9.4-12.3); Monocytes Absolute Auto 0.9 X10*3/uL (0.1-1.2); Neutrophils Absolute Auto 7.8 x10*3/uL (2.0-8.3); Neutrophils Percent Auto 72.1 % (45-73); Platelet Count 174 X10*3/uL (160-400); Red Cell Distribution Width 12.8 % (11.0-16.0); White Blood Count 10.9 X10*3/uL (4.8-10.8)
[2022-12-31 07:36] VITALS: BP 110/73; PULSE 47; RESP 17; TEMP 35.9; O2SAT 93
[2022-12-31 07:52] LABS: Anion Gap 10 (12-20); Blood Urea Nitrogen 13 mg/dL (9-16); Calcium 8.3 mg/dL (8.4-10.2); Carbon Dioxide 27 mmol/L (22-29); Chloride 105 mmol/L (96-108); Creatinine Clr Calc Pharmacy 141.9; Estimated Glomerular Filt Rate > 60; Glucose Fasting 117 mg/dL (60-99); Sodium 138 mmol/L (135-145)
[2022-12-31] MEDS: Celecoxib 200 MG CAPSULE PO ×2 (07:58→20:55)
[2022-12-31] MEDS: busPIRone HCl 10 MG TABLET 30 MG PO ×2 (07:58→20:55)
[2022-12-31] MEDS: oxyCODONE HCl ER 10 MG TAB.ER.12H PO ×2 (07:58→20:54)
[2022-12-31] MEDS: Docusate Sodium 100 MG CAPSULE PO ×2 (07:58→20:57)
[2022-12-31] MEDS: Escitalopram Oxalate 10 MG TABLET PO ×2 (07:58→20:54)
[2022-12-31] MEDS: Lactated Ringers 1,000 ML 100 ML IVCONT (09:49)
[2022-12-31] MEDS: methADONE HCl 20 MG/2 ML ORAL.CONC 75 MG PO (09:50)
--- NOTE | 2022-12-31 10:41 | MHC.RECOVRN ---
Met with pt to follow up and provide support. Pt sitting in bed, awake, alert, easily engages in conversation. Pt reports adequate pain management, looking forward to moving around and hoping to have a quick recovery. Pt denies questions or concerns at this time. T/w available if needed.
--- NOTE | 2022-12-31 11:35 | P.PNOP_ITS ---
Subjective Subjective Date of Service: 12/31/22 Interval history: Pod 1 s/p Right hip percutaneus pinning no overnight events resting in bed, pain is tolerable denies sob, palpitations, chest pain Physical Exam Vital Signs: Vital Signs: Last Vital Signs Temp 96.6 F L 12/31/22 07:36 Pulse 47 L 12/31/22 07:36 Resp 17 12/31/22 07:36 BP 110/73 12/31/22 07:36 Pulse Ox 93 12/31/22 07:36 O2 Del Method 12/31/22 07:36 O2 Flow Rate 2.0 12/30/22 16:00 BMI result Body Mass Index 29.7 Const: General: cooperative, healthy appearing and no acute distress Resp: Effort & Inspection: normal respiratory effort and able to speak in complete sentences Cardio: Rate: regular rate Peripheral pulses: Peripheral pulses 2+ throughout GI: Palpation (GI): Soft to palpation Skin: General skin exam: no rashes or lesions noted Extrem: Other: Right hip bandage with bloody staining, Mild discomfort with rom and slr. She is able to dorsi and plantar flex the foot and ankle. Calf supple non tender, NVI. Procedures Date of Service Date of Service: 12/31/22 Progress Note: A&P Assessment and plan (1) Femur fracture: Status: Acute Assessment and Plan: * Continue pain mgmnt * Begin lovenox for dvt ppx * begin PT / OT for Right hip perc. pinning -wbat, gait training, strengthening * D/c dexter * Dispo planning-Pending PT eval, pain mgmnt Time Spent With Patient Time: Total time managing care of this patient today ____ minutes. Quality Stroke Does the patient have a stroke diagnosis?: No VTE Prior VTE?: No VTE Risk Level:: Surgical - high VTE Device Contraindication: N/A - Device Ordered VTE Drug Contraindication: Treatment Not Indicated
--- NOTE | 2022-12-31 12:32 | HO.POSTANES ---
Post Anesthesia Evaluation Post Anesthesia Evaluation Vital Signs: Vital Signs Temp Pulse Resp BP Pulse Ox O2 Del Method 12/31/22 07:36 96.6 F L 47 L 17 110/73 93 Room Air Anesthesia: General LMA Mental Status: Awake Pain Control: Satisfactory Nausea/Vomiting: None Hydration: Adequate Anesthesia-Related Issues: No Anes. Related Issues
[2022-12-31] MEDS: Enoxaparin Sodium 40 MG/0.4 ML SYRINGE SUBCUT (14:34)
[2022-12-31] MEDS: Acetaminophen 325 MG TABLET 650 MG PO (14:35)
[2022-12-31 15:59] VITALS: BP 141/69; PULSE 66; RESP 18; TEMP 36.1; O2SAT 98
[2022-12-31 19:55] VITALS: BP 133/67; PULSE 66; RESP 18; TEMP 36.4; O2SAT 98
[2022-12-31] MEDS: traZODone HCL 50 MG TABLET PO (20:56)
[2022-12-31] MEDS: clonazePAM 0.5 MG TABLET PO (20:56)
[2023-01-01 03:36] VITALS: BP 121/68; PULSE 60; RESP 18; TEMP 36.5; O2SAT 97
[2023-01-01 07:33] LABS: MANUAL DIFF FLAG NO
[2023-01-01 07:38] LABS: Basophils Absolute Auto 0.1 X10*3/uL (0.0-0.2); Basophils Percent Auto 0.7 % (0-2); Eosinophils Absolute Auto 0.2 X10*3/uL (0.0-0.4); Eosinophils Percent Auto 2.1 % (0-4); Hematocrit 35.4 % (37.0-47.0); Hemoglobin 11.5 g/dl (12.0-16.0); Imm Gran Abs Auto 0.03 X10*3/uL (0.00-0.03); Imm Gran Pct Auto 0.4 % (0.0-0.4); Lymphocytes Absolute Auto 3.1 X10*3/uL (1.2-4.9); Lymphocytes Percent Auto 44.9 % (20-40); Mean Corpuscular HGB Conc 32.5 g/dl (31.0-35.0); Mean Corpuscular Hemoglobin 30.1 pg (27.0-33.0); Mean Corpuscular Volume 92.7 fL (80.0-98.0); Mean Platelet Volume 10.7 fL (9.4-12.3); Monocytes Absolute Auto 0.6 X10*3/uL (0.1-1.2); Monocytes Percent Auto 8.2 % (2-11); Neutrophils Absolute Auto 3.1 x10*3/uL (2.0-8.3); Neutrophils Percent Auto 43.7 % (45-73); Platelet Count 166 X10*3/uL (160-400); Red Blood Count 3.82 X10*6/uL (4.20-5.50); Red Cell Distribution Width 12.9 % (11.0-16.0)
[2023-01-01 07:47] VITALS: BP 116/73; PULSE 50; RESP 17; TEMP 36.7; O2SAT 95
[2023-01-01] MEDS: Escitalopram Oxalate 10 MG TABLET PO ×2 (07:47→21:41)
[2023-01-01] MEDS: Docusate Sodium 100 MG CAPSULE PO ×2 (07:47→21:41)
[2023-01-01] MEDS: Celecoxib 200 MG CAPSULE PO ×2 (07:47→21:41)
[2023-01-01] MEDS: busPIRone HCl 10 MG TABLET 30 MG PO ×2 (07:47→21:40)
[2023-01-01] MEDS: oxyCODONE HCl Immed Release 5 MG TABLET 10 MG PO ×2 (07:48→16:16)
[2023-01-01] MEDS: methADONE HCl 20 MG/2 ML ORAL.CONC 75 MG PO (07:49)
[2023-01-01] MEDS: 0.9 % Sodium Chloride Flush 3 ML SYRINGE IVFLUSH ×3 (07:58→21:40)
[2023-01-01 08:04] LABS: Anion Gap 12 (12-20); Blood Urea Nitrogen 14 mg/dL (9-16); Calcium 8.2 mg/dL (8.4-10.2); Carbon Dioxide 27 mmol/L (22-29); Chloride 104 mmol/L (96-108); Creatinine Clr Calc Pharmacy 146.5; Estimated Glomerular Filt Rate > 60; Glucose Fasting 78 mg/dL (60-99); Sodium 139 mmol/L (135-145)
[2023-01-01] MEDS: HYDROmorphone HCl 0.5 MG/0.5 ML SYRINGE IVPUSH ×4 (08:48→21:41)
[2023-01-01] MEDS: clonazePAM 0.5 MG TABLET PO (10:15)
[2023-01-01] MEDS: oxyCODONE HCl ER 10 MG TAB.ER.12H PO ×2 (10:16→21:40)
[2023-01-01] MEDS: Enoxaparin Sodium 40 MG/0.4 ML SYRINGE SUBCUT (10:21)
--- NOTE | 2023-01-01 10:53 | P.PNOP_ITS ---
Subjective Subjective Date of Service: 01/01/23 Interval history: Pod 2 s/p Right hip percutaneus pinning no overnight events resting in bed, pain is less tolerable today - she did get out of bed yesterday to chair and bathroom denies sob, palpitations, chest pain Physical Exam Vital Signs: Vital Signs: Last Vital Signs Temp 98.1 F 01/01/23 07:47 Pulse 50 01/01/23 07:47 Resp 17 01/01/23 07:47 BP 116/73 01/01/23 07:47 Pulse Ox 95 01/01/23 07:47 O2 Del Method 01/01/23 07:47 O2 Flow Rate 2.0 12/30/22 16:00 BMI result Body Mass Index 29.7 Const: General: cooperative, healthy appearing and no acute distress Resp: Effort & Inspection: normal respiratory effort and able to speak in complete sentences Cardio: Rate: regular rate Peripheral pulses: Peripheral pulses 2+ throughout GI: Palpation (GI): Soft to palpation Skin: General skin exam: no rashes or lesions noted Extrem: Other: Right hip bandage with bloody staining, Mild discomfort with rom and slr. She is able to dorsi and plantar flex the foot and ankle. Calf supple non tender, NVI. Procedures Date of Service Date of Service: 01/01/23 Progress Note: A&P Assessment and plan (1) Femur fracture: Status: Acute Assessment and Plan: * Continue pain mgmnt * lovenox for dvt ppx * PT / OT for Right hip perc. pinning -wbat, gait training, strengthening * D/c dexter * Dispo planning-Pending PT eval, pain mgmnt Time Spent With Patient Time: Total time managing care of this patient today ____ minutes. Quality Stroke Does the patient have a stroke diagnosis?: No VTE Prior VTE?: No VTE Risk Level:: Surgical - high VTE Device Contraindication: N/A - Device Ordered VTE Drug Contraindication: Treatment Not Indicated
[2023-01-01 15:45] VITALS: BP 107/59; PULSE 60; RESP 18; TEMP 36.1; O2SAT 98
--- NOTE | 2023-01-01 15:57 | MHC.CM.PN ---
PT NOT YET DISCHARGED PHYSICAL THERAPY IS RECOMMENDING HOME WITH SERVICES VNA REFERRAL MADE
[2023-01-01] MEDS: Acetaminophen 325 MG TABLET 650 MG PO (16:16)
--- NOTE | 2023-01-01 16:18 | MHC.CM.PN ---
CM MET WITH PT TO DISCUSS DC PLANNING SHE IS AWARE PT IS RECOMMENDING HOME WITH SERVICES SHE REPORTS SHE CONTACTED HER CLINIC AND THEY TOLD HER A VNA MAY BE ABLE TO BRING HER METHADONE SHE SAYS THEY TOLD HER THEY WERE CONTRACTED WITH [facility] SHE REPORTS SHE IS UNSURE IF SHE WILL GO TO HER MOTHERS HOME IN [place] OR HER FRIENDS IN [place] AT [place]. SHE SAYS HER MOTHERS BOYFRIEND IS NOT A VERY GOOD MIGUEL AND SHE DOES NOT FEEL SHE WILL HEAL WELL THERE. SHE HAS TRIED CONTACTING HER FRIEND AND EXPECTS TO HAVE AN ANSWER TODAY. SHE WILL LET CM KNOW SOON POSSIBLE. SHE IS AWARE IF A VNA CANNOT BE ARRANGED SHE WILL NEED TO GO TO THE CLINIC, SHE SAYS SHE ONLY GOES 1X/WEEK AND GETS TAKE HOME BOTTLES. A REFERRAL WAS MADE TO [facility] PT IS ALSO AWARE THE VNA MAY NOT HAVE OPENINGS IN [place] OR [place] AND THAT MAY ALSO BE A FACTOR WHEN SHE DECIDES WHERE TO DC TO
[2023-01-01 19:51] VITALS: BP 108/65; PULSE 59; RESP 18; TEMP 36.3; O2SAT 95
[2023-01-01] MEDS: traZODone HCL 50 MG TABLET PO (21:40)
[2023-01-02 04:00] VITALS: BP 95/59; PULSE 50; RESP 17; TEMP 36.6; O2SAT 95
[2023-01-02 06:41] LABS: Basophils Absolute Auto 0.1 X10*3/uL (0.0-0.2); Basophils Percent Auto 0.8 % (0-2); Eosinophils Absolute Auto 0.3 X10*3/uL (0.0-0.4); Eosinophils Percent Auto 3.8 % (0-4); Hematocrit 35.5 % (37.0-47.0); Hemoglobin 11.6 g/dl (12.0-16.0); Imm Gran Abs Auto 0.06 X10*3/uL (0.00-0.03); Imm Gran Pct Auto 0.9 % (0.0-0.4); Lymphocytes Absolute Auto 2.6 X10*3/uL (1.2-4.9); Lymphocytes Percent Auto 38.7 % (20-40); MANUAL DIFF FLAG SCAN; Mean Corpuscular HGB Conc 32.7 g/dl (31.0-35.0); Mean Corpuscular Hemoglobin 30.2 pg (27.0-33.0); Mean Corpuscular Volume 92.4 fL (80.0-98.0); Monocytes Absolute Auto 0.5 X10*3/uL (0.1-1.2); Monocytes Percent Auto 8.1 % (2-11); Neutrophils Absolute Auto 3.2 x10*3/uL (2.0-8.3); Neutrophils Percent Auto 47.7 % (45-73); PLT CLUMP 1; Red Blood Count 3.84 X10*6/uL (4.20-5.50); SCAN SMEAR FLAG 1; White Blood Count 6.6 X10*3/uL (4.8-10.8)
[2023-01-02 06:49] LABS: Anion Gap 13 (12-20); Blood Urea Nitrogen 13 mg/dL (9-16); Calcium 8.6 mg/dL (8.4-10.2); Carbon Dioxide 26 mmol/L (22-29); Chloride 106 mmol/L (96-108); Creatinine Clr Calc Pharmacy 141.9; Estimated Glomerular Filt Rate > 60; Glucose Fasting 95 mg/dL (60-99); Potassium 4.6 mmol/L (3.3-5.1); Sodium 140 mmol/L (135-145)
[2023-01-02 07:20] LABS: Platelet Count 177 X10*3/uL (160-400); SLIDE REVIEW VERIFIED
--- NOTE | 2023-01-02 07:44 | P.PNOP_ITS ---
Subjective Subjective Date of Service: 01/02/23 Interval history: Pod 3 s/p Right hip percutaneus pinning no overnight events resting in bed, pain better today - working with PT/Ot denies sob, palpitations, chest pain Physical Exam Vital Signs: Vital Signs: Last Vital Signs Temp 98 F 01/02/23 04:00 Pulse 50 01/02/23 04:00 Resp 17 01/02/23 04:00 BP 95/59 L 01/02/23 04:00 Pulse Ox 95 01/02/23 04:00 O2 Del Method 01/02/23 04:00 O2 Flow Rate 2.0 12/30/22 16:00 BMI result Body Mass Index 29.7 Const: General: cooperative, healthy appearing and no acute distress Resp: Effort & Inspection: normal respiratory effort and able to speak in complete sentences Cardio: Rate: regular rate Peripheral pulses: Peripheral pulses 2+ throughout GI: Palpation (GI): Soft to palpation Skin: General skin exam: no rashes or lesions noted Extrem: Other: Right hip bandage with bloody staining, Mild discomfort with rom and slr. She is able to dorsi and plantar flex the foot and ankle. Calf supple non tender, NVI. Procedures Date of Service Date of Service: 01/02/23 Progress Note: A&P Assessment and plan (1) Femur fracture: Status: Acute Assessment and Plan: * Continue pain mgmnt * lovenox for dvt ppx * PT / OT for Right hip perc. pinning -wbat, gait training, strengthening * D/c dexter * Dispo planning-Pending home with services Time Spent With Patient Time: Total time managing care of this patient today ____ minutes. Quality Stroke Does the patient have a stroke diagnosis?: No VTE Prior VTE?: No VTE Risk Level:: Surgical - high VTE Device Contraindication: N/A - Device Ordered VTE Drug Contraindication: Treatment Not Indicated
[2023-01-02] MEDS: Escitalopram Oxalate 10 MG TABLET PO ×2 (07:59→20:15)
[2023-01-02] MEDS: busPIRone HCl 10 MG TABLET 30 MG PO ×2 (07:59→20:15)
[2023-01-02] MEDS: Docusate Sodium 100 MG CAPSULE PO ×2 (07:59→20:14)
[2023-01-02 08:00] VITALS: BP 125/65; PULSE 53; RESP 18; TEMP 35.9; O2SAT 99
[2023-01-02] MEDS: Celecoxib 200 MG CAPSULE PO ×2 (08:01→20:14)
[2023-01-02] MEDS: oxyCODONE HCl ER 10 MG TAB.ER.12H PO ×2 (08:01→20:14)
[2023-01-02] MEDS: 0.9 % Sodium Chloride Flush 3 ML SYRINGE IVFLUSH ×3 (08:01→20:24)
[2023-01-02] MEDS: HYDROmorphone HCl 0.5 MG/0.5 ML SYRINGE IVPUSH ×2 (08:02→20:12)
[2023-01-02] MEDS: methADONE HCl 20 MG/2 ML ORAL.CONC 75 MG PO (09:33)
[2023-01-02] MEDS: Enoxaparin Sodium 40 MG/0.4 ML SYRINGE SUBCUT (11:42)
[2023-01-02] MEDS: oxyCODONE HCl Immed Release 5 MG TABLET 10 MG PO ×2 (12:42→17:43)
[2023-01-02 15:44] VITALS: BP 134/71; PULSE 62; RESP 14; TEMP 36.6; O2SAT 96
[2023-01-02 20:00] VITALS: BP 113/61; PULSE 63; RESP 15; TEMP 36.7; O2SAT 96
[2023-01-02] MEDS: traZODone HCL 50 MG TABLET PO (20:15)
[2023-01-03] MEDS: oxyCODONE HCl Immed Release 5 MG TABLET 10 MG PO ×4 (03:07→15:58)
[2023-01-03 04:00] VITALS: BP 120/59; PULSE 50; RESP 18; TEMP 36; O2SAT 94
[2023-01-03 07:24] VITALS: BP 118/65; PULSE 63; RESP 16; TEMP 36.1; O2SAT 100
[2023-01-03] MEDS: Escitalopram Oxalate 10 MG TABLET PO ×2 (07:58→20:49)
[2023-01-03] MEDS: Celecoxib 200 MG CAPSULE PO ×2 (07:58→20:48)
[2023-01-03] MEDS: busPIRone HCl 10 MG TABLET 30 MG PO ×2 (07:59→20:47)
[2023-01-03] MEDS: oxyCODONE HCl ER 10 MG TAB.ER.12H PO ×2 (07:59→20:49)
[2023-01-03] MEDS: Docusate Sodium 100 MG CAPSULE PO ×2 (07:59→20:49)
[2023-01-03] MEDS: 0.9 % Sodium Chloride Flush 3 ML SYRINGE IVFLUSH ×2 (08:00→15:59)
[2023-01-03 08:16] LABS: MANUAL DIFF FLAG NO
[2023-01-03 08:23] LABS: Basophils Absolute Auto 0.1 X10*3/uL (0.0-0.2); Basophils Percent Auto 1.1 % (0-2); Eosinophils Absolute Auto 0.3 X10*3/uL (0.0-0.4); Eosinophils Percent Auto 4.1 % (0-4); Hematocrit 37.7 % (37.0-47.0); Hemoglobin 12.4 g/dl (12.0-16.0); Imm Gran Abs Auto 0.03 X10*3/uL (0.00-0.03); Imm Gran Pct Auto 0.5 % (0.0-0.4); Lymphocytes Absolute Auto 2.3 X10*3/uL (1.2-4.9); Lymphocytes Percent Auto 34.9 % (20-40); Mean Corpuscular HGB Conc 32.9 g/dl (31.0-35.0); Mean Corpuscular Hemoglobin 30.6 pg (27.0-33.0); Mean Corpuscular Volume 93.1 fL (80.0-98.0); Mean Platelet Volume 10.7 fL (9.4-12.3); Monocytes Absolute Auto 0.5 X10*3/uL (0.1-1.2); Monocytes Percent Auto 8.2 % (2-11); Neutrophils Absolute Auto 3.4 x10*3/uL (2.0-8.3); Neutrophils Percent Auto 51.2 % (45-73); Platelet Count 199 X10*3/uL (160-400); Red Blood Count 4.05 X10*6/uL (4.20-5.50); Red Cell Distribution Width 12.8 % (11.0-16.0); White Blood Count 6.6 X10*3/uL (4.8-10.8)
[2023-01-03 08:42] LABS: Anion Gap 15 (12-20); Blood Urea Nitrogen 13 mg/dL (9-16); Carbon Dioxide 28 mmol/L (22-29); Chloride 101 mmol/L (96-108); Creatinine Clr Calc Pharmacy 135.4; Estimated Glomerular Filt Rate > 60; Glucose Fasting 84 mg/dL (60-99); Potassium 4.6 mmol/L (3.3-5.1); Sodium 139 mmol/L (135-145)
[2023-01-03] MEDS: methADONE HCl 20 MG/2 ML ORAL.CONC 75 MG PO (09:44)
[2023-01-03] MEDS: Enoxaparin Sodium 40 MG/0.4 ML SYRINGE SUBCUT (11:17)
[2023-01-03] MEDS: clonazePAM 0.5 MG TABLET PO (12:06)
[2023-01-03] MEDS: Acetaminophen 325 MG TABLET 650 MG PO (12:07)
--- NOTE | 2023-01-03 14:29 | MHC.CM.PN ---
PLAN IS HOME THURSDAY 01/04 WITH [facility] PATIENT IS ABLE TO HAVE HER SISTER ANESTHESIOLOGY TECHNOLOGIST HER METHADONE FOR THE NEXT 2 WEEKS (ACCORDING TO PATIENT) (NO NEED FOR [facility] SERVICES ANY LONGER)
[2023-01-03 16:00] VITALS: BP 120/71; PULSE 57; RESP 18; TEMP 36.1; O2SAT 96
[2023-01-03] MEDS: HYDROmorphone HCl 0.5 MG/0.5 ML SYRINGE IVPUSH (18:54)
--- NOTE | 2023-01-03 19:30 | P.PNOP_ITS ---
Subjective Subjective Date of Service: 01/03/23 Interval history: Pod 4 s/p Right hip percutaneus pinning no overnight events resting in bed, pain better today - working with PT/Ot denies sob, palpitations, chest pain Physical Exam Vital Signs: Vital Signs: Last Vital Signs Temp 97.0 F 01/03/23 16:00 Pulse 57 01/03/23 16:00 Resp 18 01/03/23 16:00 BP 120/71 01/03/23 16:00 Pulse Ox 96 01/03/23 16:00 O2 Del Method 01/03/23 16:00 O2 Flow Rate 2.0 12/30/22 16:00 BMI result Body Mass Index 29.7 Const: General: cooperative, healthy appearing and no acute distress Resp: Effort & Inspection: normal respiratory effort and able to speak in complete sentences Cardio: Rate: regular rate Peripheral pulses: Peripheral pulses 2+ throughout GI: Palpation (GI): Soft to palpation Skin: General skin exam: no rashes or lesions noted Extrem: Other: Right hip bandage with bloody staining, Mild discomfort with rom and slr. She is able to dorsi and plantar flex the foot and ankle. Calf supple non tender, NVI. Procedures Date of Service Date of Service: 01/03/23 Progress Note: A&P Assessment and plan (1) Femur fracture: Status: Acute Assessment and Plan: * Continue pain mgmnt * lovenox for dvt ppx * PT / OT for Right hip perc. pinning -wbat, gait training, strengthening * D/c dexter * Dispo planning-Pending home with services Time Spent With Patient Time: Total time managing care of this patient today ____ minutes. Quality Stroke Does the patient have a stroke diagnosis?: No VTE Prior VTE?: No VTE Risk Level:: Surgical - high VTE Device Contraindication: N/A - Device Ordered VTE Drug Contraindication: Treatment Not Indicated
[2023-01-03 19:39] VITALS: BP 121/73; PULSE 58; RESP 18; TEMP 35.9; O2SAT 94
[2023-01-03] MEDS: traZODone HCL 50 MG TABLET PO (20:50)
[2023-01-04] MEDS: 0.9 % Sodium Chloride Flush 3 ML SYRINGE IVFLUSH ×2 (00:55→08:22)
[2023-01-04 03:05] VITALS: BP 111/57; PULSE 51; RESP 18; TEMP 36; O2SAT 93
[2023-01-04 07:44] VITALS: BP 115/58; PULSE 60; RESP 18; TEMP 36.3; O2SAT 96
[2023-01-04] MEDS: Docusate Sodium 100 MG CAPSULE PO (08:22)
[2023-01-04] MEDS: Escitalopram Oxalate 10 MG TABLET PO (08:22)
[2023-01-04] MEDS: Celecoxib 200 MG CAPSULE PO (08:22)
[2023-01-04] MEDS: busPIRone HCl 10 MG TABLET 30 MG PO (08:22)
[2023-01-04] MEDS: methADONE HCl 20 MG/2 ML ORAL.CONC 75 MG PO (08:25)
[2023-01-04 09:11] LABS: Hemoglobin 13.1 g/dl (12.0-16.0)
[2023-01-04] MEDS: oxyCODONE HCl Immed Release 5 MG TABLET 10 MG PO (10:30)
[2023-01-04] MEDS: Enoxaparin Sodium 40 MG/0.4 ML SYRINGE SUBCUT (10:31)
--- NOTE | 2023-01-04 11:07 | MHC.CM.PN ---
PLAN IS HOME TODAY WITH [facility]
--- NOTE | 2023-01-04 11:13 | PM.DS ---
DS: Providers Provider Date of Service: 01/04/23 Date of admission: 12/29/22 21:46 Primary care physician: Pam Brito MD Consults: 12/29/22 21:46 Consult to Hospitalist Stat Consulting Provider: Hospitalist Reason For Exam: preop clearance/ h/o polysubstance abuse 12/30/22 06:56 Addiction Medicine Routine Consulting Provider: Addiction Covering Reason for consultation: polysubstance DS: Diagnosis Discharge Diagnosis (1) Femur fracture: Status: Acute DS: Summary Hospital Course Hospital Course: The patient underwent a successful operative fixation of the right hip, was transferred to PACU and then to the floor to recover. During their stay, their vitals were stable, afebrile at 97.3. Labs were unremarkable, H/H 13.1/40.0 . POD 1 s was started on Lovenox 40 mg subQ for DVT ppx, they also received Physical Therapy and Occupational therapy services twice a day. Physical therapy should include gait training, ROM to tolerance and strengthening. She is WBAT with a walker. Prior to discharge, his dressing was changed, incision clean dry and intact, new dry dressing applied. Any concerns with the dressing, please contact orthopedic office. No showering. The plan is to be discharged home with VNA services Time Spent with Patient Time attestation: Total time managing care of this patient today ____ minutes. Discharge coordination time: Less than 30 minutes Quality: Safe Use of Opioids Does Pt have an Active Cancer Diagnosis on the Problem List?: No Quality: Stroke Does the patient have a stroke diagnosis?: No Physical Exam Vital Signs: Vital Signs: Last Vital Signs Temp 97.3 F 01/04/23 07:44 Pulse 60 01/04/23 07:44 Resp 18 01/04/23 07:44 BP 115/58 L 01/04/23 07:44 Pulse Ox 96 01/04/23 07:44 O2 Del Method Room Air 01/04/23 07:44 O2 Flow Rate 2.0 12/30/22 16:00 BMI result Body Mass Index 29.7 Const: General: cooperative, healthy appearing and no acute distress Resp: Effort & Inspection: normal respiratory effort and able to speak in complete sentences Cardio: Rate: regular rate Peripheral pulses: Peripheral pulses 2+ throughout GI: Palpation (GI): Soft to palpation Skin: General skin exam: no rashes or lesions noted Extrem: Other: Right hip bandage with bloody staining, Mild discomfort with rom and slr. She is able to dorsi and plantar flex the foot and ankle. Calf supple non tender, NVI. DS: Data Data Completed and Pending Labs on day of discharge: Laboratory Results - last 24 hr 01/04/23 08:57 Hgb 13.1 Hct 40.0 Discharge Plan Discharge Anticipated Discharge Date/Time: 01/04/23 11:08 Patient Disposition: Home Health Service Discharge Diagnosis: Right femoral neck fracture Referrals: Ivette PATEL [Outside] - 1 Week Jazmyne Salguero PA-C [Physician Wafer Fabrication Technician] - 2 Weeks (01/18/23 3:30 [facility] [place] [facility]geons Jazmyne Salguero PA-C) Discharge Medications: New celecoxib 200 mg Capsule 200 mg PO BID 30 Days Qty: 60 0RF docusate sodium 100 mg Capsule 100 mg PO BID 14 Days Qty: 28 0RF oxycodone 5 mg Tablet 5 mg PO Q4H PRN (Reason: Pain, Moderate (Pain Scale 4-6) 7 Days Qty: 42 0RF Rx Instructions: Partial Fill upon patient request. acetaminophen 325 mg Tablet 650 mg PO Q6H PRN (Reason: Pain, Mild (Pain Scale 1-3)) 30 Days Qty: 240 0RF enoxaparin 40 mg/0.4 mL Syringe 40 mg subcut Q24H 42 Days Qty: 16.8 0RF Continued citalopram 40 mg tablet 20 mg PO BID trazodone 50 mg tablet 1 tab PO BEDTIME clonazepam 0.5 mg tablet 1 tab PO DAILY PRN (Reason: panic attack) buspirone 30 mg tablet 1 tab PO BID methadone 5 mg/5 mL solution 76 mg PO DAILY albuterol sulfate [Ventolin HFA] 90 mcg/actuation HFA aerosol inhaler 1 inh inhalation QID PRN (Reason: shortness of breath or wheezing) Qty: 8.5 1RF Discharge Orders: Discharge Order (Routine); Ordered 01/04/23 Ordered By: Jazmyne Salguero Diet: Regular diet Activity on Discharge: No prolonged sitting Stand Alone Forms: Patient Portal Discharge page Care Plan Goals: Restore function of joint Health Concerns: none Plan of Treatment: Physical Therapy Pain management DVT prophylaxis Assessment: Gait training, strengthening, ADLs Continue Lovenox x6 weeks Keep dressing clean,dry and intact-no showering or tub baths Follow up with Orthopedics in 2 weeks
[2023-01-04 12:02] VITALS: BP 115/58; PULSE 60; O2SAT 96
--- NOTE | 2023-01-04 12:30 | P.F2F_ITS ---
Service Date Service Date: 01/04/23 Encounter Date of encounter: 01/04/23 Reasons for Services Signs and symptoms assessed: Right hip pain with ambulation, weakness, poor balance. Reason for physical therapy: home safety and mobility, therapeutic exercises, restore joint function, gait/transfer training, ADL training and energy conservation Reason for occupational therapy: home safety and mobility, therapeutic exercises, restore joint function, gait/transfer training, ADL training and energy conservation Overseeing Care: Isidro Lynch Homebound: Leaving the home is medically contraindicated at this time without the asist of a device and/or another person due th the listed conditions above and below. Reason homebound: unsteady gait / fall risk, pain with ambulation, pain with transfers, poor balance / fall risk, non-weight bearing and unable to drive Homebound supporting statement: Pt. is considered home bound due to recent surgery. Unable to drive, poor balance, poor gait mechanics. Certification: Based on the above findings, I certify that this patient is confined to the home and needs intermittent intermediate care, physical therapy and/or speech therapy, or continues to need occupational therapy. The patient is under my care, and I have initiated the establishment of the plan of care. The patient will be followed by a physician who will periodically review the plan of care. Time Spent With Patient Time: Total time managing care of this patient today ____ minutes.
--- NOTE | 2023-01-25 14:17 | P.OP_ITS ---
Operative Note Operative Note Date of Service: 01/30/23 Narrative: Date of Service: 12/30/22 Pre-op diagnosis: Right femoral neck fracture Post-op diagnosis: same Procedure: CRPP right hip Implants: José 8.0 105,100 mm Surgeon: Isidro Lynch MD Anesthesia: GLMA and local Was an Pv Design And Installation Technician used for this Procedure?: No Estimated blood loss (mL): 50 IV fluids (mL): 100 Pathology: none sent Condition: stable Disposition: PACU Procedure in detail:? Patient was brought to the operating room and prepped and draped in standard sterile fashion.? Time-out was called to identify proper site procedure proper surgeon and IV antibiotics per weight were administered.? She was positioned on the fracture table with slight internal rotation? and biplanar fluoroscopy confirmed initial fracture reduction.? I then made a stab incision at the level of the lesser. I then placed 3 k-wires in a inverted triangle configuration through the femoral neck and into the femoral head. I used biplanar fluoro to confirm screw position on the AP and lateral projection. I was satisfied with the position of the k-wires I measured and then placed three partially threaded cancellous screws over the wires. I was satisfied with the fracture reduction and screw position. I copiously irrigated closed with absorbable sutures rufus and injected 30 mL of into the area of the incisions.? Patient was placed in sterile dressing awakened from anesthesia brought to recovery room stable condition there were no known complications.
== END 2023-01-04 14:34 | disposition home health service (06) | DRG 481 ==
LOC: HO.ED 21:17 → HO.EDOVER 21:55 → HO.S3 12-30 10:54
PROVIDERS: Orthopaedic Surgery; Admitting Provider Physician Assistant; Emergency Provider Emergency Medicine; PCP Internal Medicine; Visit Provider Physician Assistant
PROC: 0QS636Z Reposition Right Upper Femur with Intramedullary Internal Fixation Device, Percutaneous Approach (ICD-10-PCS; principal; 2022-12-30 09:00)
DX: S72.001A Fracture of unspecified part of neck of right femur, initial encounter for closed fracture (principal); F11.20 Opioid dependence, uncomplicated; B19.20 Unspecified viral hepatitis C without hepatic coma; J45.909 Unspecified asthma, uncomplicated; X58.XXXA Exposure to other specified factors, initial encounter; F41.9 Anxiety disorder, unspecified; F32.A Depression, unspecified; F17.210 Nicotine dependence, cigarettes, uncomplicated; Z20.822 Contact with and (suspected) exposure to COVID-19; Z71.6 Tobacco abuse counseling; Z88.5 Allergy status to narcotic agent; Z88.6 Allergy status to analgesic agent; Z88.8 Allergy status to other drugs, medicaments and biological substances; Z79.899 Other long term (current) drug therapy
CPT/HCPCS: 36415; 72170; 73552; 80048; 85014; 85018; 85025; 85610; 86850; 86900; 86901; 87635; 97110; 97116; 97162; 97166; 97530; 97535; 99285; C1713; C1758; C1769; J0131; J0690; J1100; J1170; J1650; J2250; J2270; J2405; J2795; J3010

== ENCOUNTER 2023-01-18 06:09 | Outpatient (REF) | payer MEDICARE, MEDICAID, SELFPAY ==
--- NOTE | ~2023-01-18 | XR_ITS ---
EXAMINATION: XR HIP, RIGHT CLINICAL INFORMATION: Prior right hip fracture. Follow-up. COMPARISON: Pelvis and right hip radiographs 12/29/2022. Fluoroscopic spot views right hip 12/30/2022. TECHNIQUE: AP view pelvis is performed along with 2 views right hip. FINDINGS: The crosstable lateral view right hip is underpenetrated. There has been prior nailing of the right hip fracture. The hardware is intact. Fracture fragments are in near-anatomic alignment. No dislocation or destructive process. Remainder of the pelvis is unremarkable. There are mild degenerative changes superolateral left hip. XR/XR hip RT w PEL1V IMPRESSION: Status post nailing right hip fracture. Hardware intact.
== END 2023-01-18 06:10 | disposition home or self-care (01) ==
LOC: HO.HOSX 06:09
PROVIDERS: Visit Provider Physician Assistant
DX: S72.91XD Unspecified fracture of right femur, subsequent encounter for closed fracture with routine healing (principal)
CPT/HCPCS: 73502; 99212

== ENCOUNTER 2023-02-08 08:31 | Outpatient (REF) | payer MEDICARE, MEDICAID, SELFPAY ==
--- NOTE | ~2023-02-08 | XR_ITS ---
EXAMINATION: XR PELVIS CLINICAL INFORMATION: Pain. COMPARISON: Radiographs dated 01/18/2023. TECHNIQUE: AP view of the pelvis. FINDINGS: There is bony demineralization. 3 orthopedic screws are again noted applied to the left femoral neck. Femoral neck and intertrochanteric fracture fragments are redemonstrated. The femoral shaft demonstrates approximately 8 mm of medial displacement relative to the greater trochanter, neck and head portions. 3 mm lucencies are seen adjacent to the upper and lowermost screws, suggesting mild hardware loosening. No new callus formation is noted. There is mild to moderate narrowing of the superolateral right acetabular joint space. The left acetabular joint space is well-maintained. There is mild subchondral sclerosis of the acetabular roof. The sacroiliac joints are symmetric and well-maintained. The pubic symphysis is intact. No foreign body is seen. XR/XR pelvis 1-2V IMPRESSION: There is mild loosening noted of orthopedic screws applied to the right femoral neck. There is mild medial displacement of the right femoral shaft fragment relative to the greater trochanter, neck and head portions.
== END 2023-02-08 08:32 | disposition home or self-care (01) ==
LOC: HO.HOSX 08:31
PROVIDERS: Visit Provider Orthopaedic Surgery
DX: S72.91XD Unspecified fracture of right femur, subsequent encounter for closed fracture with routine healing (principal)
CPT/HCPCS: 72170; 99212

== ENCOUNTER → 2023-02-14 08:38 | Day surgery (SDC) | payer MEDICARE, MEDICAID, SELFPAY ==
--- NOTE | 2023-02-13 10:32 | HO.ANESPROP2 ---
HPI - Anesthesia Eval Consult details Narrative: 32yo F for Right Femoral I-M Nailing, Right Removal Orthopedic Hardware s/p percutaneous pinning 12/2022 with GA-LMA 5 Polysubstance abuse with methadone daily PMFSH Active Problems Active Problems: All Active Problems (Updated 01/12/23 @ 00:01 by Sawyer Chin) Smoker (Acute) Femur fracture (Acute) Shortness of breath (Acute) Hepatitis C antibody test positive (Acute) Hx of hepatitis C (Acute) Skin lesion of left arm (Acute) Numerous moles (Acute) Numbness and tingling of both upper extremities (Acute) Polysubstance abuse (Acute) Bipolar 1 disorder (Acute) Past Medical History Medical History Asthma Bipolar 1 disorder Depression with anxiety Hepatitis C Hepatitis C antibody test positive Hx of hepatitis C Numbness and tingling of both upper extremities Numerous moles Polysubstance abuse Skin lesion of left arm Suicide attempt Family History Family History Father Sleep apnea Diabetes mellitus Diabetic neuropathy Mother Multiple sclerosis Colitis Fibromyalgia Maternal Grandfather CVD (cardiovascular disease) Kidney disease Heart disease Maternal Grandmother Lupus Arthritis Rheumatoid arthritis Paternal Grandfather No problems noted. Paternal Grandmother No problems noted. Brother No problems noted. Sister No problems noted. Son No problems noted. Son No problems noted. Family history of problems with anesthesia: No Surgical History Surgical History No pertinent past surgical history History of Problems with Anesthesia: No Social History Social History Household Members: Family Household Members Other:: RENTS A ROOM Housing: Other Housing Other:: 2nd floor duplex Do you presently have visiting nurse or other home services: No Alcohol intake: former Patient Tobacco Use Status: Current everyday Tobacco user Tobacco use type: Cigarette Cigarette Packs Per Day: 0.5 Cigarettes Per Day: 10 Substance Use Type: Marijuana service: No Current occupational status: disabled Meds Allergies Allergy/AdvReac Type Severity Reaction Status Date / Time tramadol [Ultram] Allergy Unknown rash Verified 01/18/23 16:09 acetaminophen [From TYLENOL] AdvReac Unknown STOMACH Verified 01/18/23 16:09 UPSET Home Medications Medication Instructions Recorded Confirmed Last Taken Type methadone 5 mg/5 mL oral solution 76 mg PO DAILY 12/25/22 12/29/22 History buspirone 30 mg tablet 1 tab PO BID 12/29/22 12/29/22 12/29/22 History citalopram 40 mg tablet 20 mg PO BID 12/29/22 12/29/22 12/29/22 History clonazepam 0.5 mg tablet 1 tab PO DAILY PRN panic attack 12/29/22 12/29/22 12/29/22 History trazodone 50 mg tablet 1 tab PO BEDTIME 12/29/22 12/29/22 12/28/22 History citalopram 20 mg tablet 20 mg PO DAILY 01/18/23 Unknown History Exam Exam Date and Time: February 13, 2023 103 Pertinent Lab Results Pertinent Lab Results: Laboratory Tests 01/03/23 01/03/23 01/04/23 08:09 08:09 08:57 WBC 6.6 Hgb 13.1 Hct 40.0 Plt Count 199 Sodium 139 Potassium 4.6 Chloride 101 Carbon Dioxide 28 BUN 13 Creatinine 0.66 Assessment and Plan Assessment Anesthesia Assessment: Chart Reviewed Final Anesthetic Review Family History of Problems with Anesthesia: No History of Problems with Anesthesia: No
== END ==
LOC: HO.SSSA 12:11 → HO.SSS 02-16 15:12
PROVIDERS: PCP Internal Medicine; Visit Provider Orthopaedic Surgery
DX: Z47.2 Encounter for removal of internal fixation device (principal); Z53.8 Procedure and treatment not carried out for other reasons

== ENCOUNTER 2023-02-21 10:51 | Inpatient (IN) | payer MEDICARE, MEDICAID, SELFPAY ==
--- NOTE | 2023-02-20 09:44 | P.CONAN_ITS ---
Documented by User: Chelsi Sousa NP 02/20/23 09:45 HPI - Anesthesia Eval Consult details Narrative: 32yo F for Right Femoral I-M Nailing, Right Removal Orthopedic Hardware s/p percutaneous pinning 12/2022 with GA-LMA 5 Polysubstance abuse with methadone daily PMFSH Active Problems Active Problems: All Active Problems (Updated 01/12/23 @ 00:01 by Sawyer Chin) Smoker (Acute) Femur fracture (Acute) Shortness of breath (Acute) Hepatitis C antibody test positive (Acute) Hx of hepatitis C (Acute) Skin lesion of left arm (Acute) Numerous moles (Acute) Numbness and tingling of both upper extremities (Acute) Polysubstance abuse (Acute) Bipolar 1 disorder (Acute) Past Medical History Medical History Asthma Bipolar 1 disorder Depression with anxiety Hepatitis C Hepatitis C antibody test positive Hx of hepatitis C Numbness and tingling of both upper extremities Numerous moles Polysubstance abuse Skin lesion of left arm Suicide attempt Family History Family History Father Sleep apnea Diabetes mellitus Diabetic neuropathy Mother Multiple sclerosis Colitis Fibromyalgia Maternal Grandfather CVD (cardiovascular disease) Kidney disease Heart disease Maternal Grandmother Lupus Arthritis Rheumatoid arthritis Paternal Grandfather No problems noted. Paternal Grandmother No problems noted. Brother No problems noted. Sister No problems noted. Son No problems noted. Son No problems noted. Family history of problems with anesthesia: No Surgical History Surgical History No pertinent past surgical history History of Problems with Anesthesia: No Social History Social History Household Members: Family Household Members Other:: RENTS A ROOM Housing: Other Housing Other:: 2nd floor duplex Do you presently have visiting nurse or other home services: No Alcohol intake: former Patient Tobacco Use Status: Current everyday Tobacco user Tobacco use type: Smokeless Tobacco Cigarette Packs Per Day: 0.5 Cigarettes Per Day: 10 Second Hand Smoke Exposure: No Substance Use Type: Marijuana Advance Directives: No service: No Current occupational status: disabled Meds Allergies Allergy/AdvReac Type Severity Reaction Status Date / Time tramadol [Ultram] Allergy Unknown rash Verified 01/18/23 16:09 acetaminophen [From TYLENOL] AdvReac Unknown STOMACH Verified 01/18/23 16:09 UPSET Home Medications Medication Instructions Recorded Confirmed Last Taken Type methadone 5 mg/5 mL oral solution 76 mg PO DAILY 12/25/22 12/29/22 History citalopram 40 mg tablet 40 mg PO DAILY 12/29/22 02/15/23 02/21/23 History clonazepam 0.5 mg tablet 1 tab PO DAILY PRN panic attack 12/29/22 02/15/23 12/29/22 History trazodone 50 mg tablet 1 tab PO BEDTIME 12/29/22 02/15/23 12/28/22 History buspirone 30 mg tablet 30 mg PO TID 02/15/23 02/15/23 02/21/23 History Exam Exam Date and Time: February 20, 2023 0944 Pertinent Lab Results Pertinent Lab Results: Laboratory Tests 01/03/23 01/03/23 01/04/23 08:09 08:09 08:57 WBC 6.6 Hgb 13.1 Hct 40.0 Plt Count 199 Sodium 139 Potassium 4.6 Chloride 101 Carbon Dioxide 28 BUN 13 Creatinine 0.66 Assessment and Plan Assessment Anesthesia Assessment: Chart Reviewed Final Anesthetic Review Family History of Problems with Anesthesia: No History of Problems with Anesthesia: No Documented by User: Martha Ponce MD 02/21/23 09:09 [facility] Past Medical History Medical History Asthma Bipolar 1 disorder Depression with anxiety Hepatitis C Hepatitis C antibody test positive Hx of hepatitis C Numbness and tingling of both upper extremities Numerous moles Polysubstance abuse Skin lesion of left arm Suicide attempt Family History Family History Father Sleep apnea Diabetes mellitus Diabetic neuropathy Mother Multiple sclerosis Colitis Fibromyalgia Maternal Grandfather CVD (cardiovascular disease) Kidney disease Heart disease Maternal Grandmother Lupus Arthritis Rheumatoid arthritis Paternal Grandfather No problems noted. Paternal Grandmother No problems noted. Brother No problems noted. Sister No problems noted. Son No problems noted. Son No problems noted. Surgical History Surgical History No pertinent past surgical history Social History Social History Household Members: Family Household Members Other:: RENTS A ROOM Housing: Other Housing Other:: 2nd floor duplex Do you presently have visiting nurse or other home services: No Alcohol intake: former Patient Tobacco Use Status: Current everyday Tobacco user Tobacco use type: Smokeless Tobacco Cigarette Packs Per Day: 0.5 Cigarettes Per Day: 10 Second Hand Smoke Exposure: No Substance Use Type: Marijuana Advance Directives: No service: No Current occupational status: disabled Meds Allergies Allergy/AdvReac Type Severity Reaction Status Date / Time tramadol [Ultram] Allergy Unknown rash Verified 01/18/23 16:09 acetaminophen [From TYLENOL] AdvReac Unknown STOMACH Verified 01/18/23 16:09 UPSET Home Medications Medication Instructions Recorded Confirmed Last Taken Type methadone 5 mg/5 mL oral solution 76 mg PO DAILY 12/25/22 12/29/22 History citalopram 40 mg tablet 40 mg PO DAILY 12/29/22 02/15/23 02/21/23 History clonazepam 0.5 mg tablet 1 tab PO DAILY PRN panic attack 12/29/22 02/15/23 12/29/22 History trazodone 50 mg tablet 1 tab PO BEDTIME 12/29/22 02/15/23 12/28/22 History buspirone 30 mg tablet 30 mg PO TID 02/15/23 02/15/23 02/21/23 History Exam Airway Mallampati Class: II TM Dist: <=3cm Neck ROM: Full Heart: rrr Lungs: cta Assessment and Plan Final Anesthetic Review ASA Class: III Final Preanesthetic Review: No Changes in Pt Med Stat, Meds/Allgs Chart Reviewed, Consent Obtained/Reviewed and Anes Risks/Benef Reviewed Patient Risk: Intermediate Procedure Risk: Intermediate Anesthetic Plan Anesthetic Plan: GA and Agree w/ Assess. and Plan Disposition: Standard PACU
[2023-02-21] VITALS (20 sets, daily range): BP systolic 100–163; BP diastolic 43–109; PULSE 54–82; RESP 8–20; TEMP 36.3–36.8; O2SAT 95–100; BMI 30.4
--- NOTE | ~2023-02-21 | FL_ITS ---
EXAMINATION: XR FLUOROSCOPY WITH IMAGES CLINICAL INFORMATION: Right hip fracture. COMPARISON: 02/08/2023 and 12/29/2022. TECHNIQUE: Fluoroscopy Supervised By: Dr. Isidro Lynch. Fluoroscopy Time: 2.5 minutes. Cumulative Dose: 78.2 mGy. DAP: 1.31 mGy-cm2. Images: 4. FINDINGS: Intraoperative imaging demonstrates placement of compression screw with long intramedullary nasima for proximal right femoral fracture. FL/FL guidance in OR IMPRESSION: Intraoperative imaging for orthopedic procedure.
[2023-02-21 08:58] LABS: UPreg QC Valid YES; Urine Pregnancy NEGATIVE (NEGATIVE)
[2023-02-21 09:21] LABS: Amphetamine Screen Urine Not Detected (Not Detect); Barbiturates, Urine Not Detected (Not Detect); Benzodiazepines Screen Urine POSITIVE (Not Detect); Cannabinoid Screen Urine POSITIVE (Not Detect); Cocaine Screen Urine Not Detected (Not Detect); Fentanyl, urine Not Detected (Not Detect); Opiate Screen Urine Not Detected (Not Detect); Phencyclidine Screen Urine Not Detected (Not Detect)
[2023-02-21] MEDS: Lactated Ringers 1,000 ML 100 ML IVCONT ×2 (09:26→16:29)
--- NOTE | 2023-02-21 13:13 | P.BOP_ITS ---
Brief Operative Note Date of Service: 02/21/23 Pre-op diagnosis: Femoral neck fracture Post-op diagnosis: same Procedure: Intramedullary nail fixation right femur Implants: Styrker 125 deg [id number] imn with 95 mm hip screw and 40 mm distal interlock with proximal 6.5 partially threaded 85mm cancellous screw Surgeon: Isidro Lynch MD Was an Ocean Rescue Lieutenant used for this Procedure?: Yes Ocean Rescue Lieutenant: Alexandrea Hopper Estimated blood loss (mL): 150 IV fluids (mL): 1,000 Pathology: none sent Condition: stable Disposition: PACU
[2023-02-21] MEDS: oxyCODONE HCl Immed Release 5 MG TABLET 10 MG PO (13:33)
[2023-02-21] MEDS: HYDROmorphone HCl 0.5 MG/0.5 ML SYRINGE IVPUSH ×4 (13:36→15:15)
[2023-02-21] MEDS: Ketorolac Tromethamine 30 MG/ML VIAL IVPUSH (13:37)
[2023-02-21] MEDS: fentaNYL citrate/PF 100 MCG/2 ML VIAL 50 MCG IVPUSH ×2 (13:48→13:55)
--- NOTE | 2023-02-21 14:50 | P.OP_ITS ---
Operative Note Operative Note Date of Service: 02/21/23 Narrative: Date of Service: 02/21/23 Pre-op diagnosis: Femoral neck fracture Post-op diagnosis: same Procedure: Intramedullary nail fixation right femur Implants: Styrker 125 deg [id number] imn with 95 mm hip screw and 40 mm distal interlock with proximal 6.5 partially threaded 85mm cancellous screw Surgeon: Isidro Lynch MD Was an Finish Off Operator used for this Procedure?: Yes Finish Off Operator: Alexandrea Hopper Estimated blood loss (mL): 150 IV fluids (mL): 1,000 Pathology: none sent Condition: stable Disposition: PACU Procedure in detail: Patient was brought to the operating room and prepped and draped in standard sterile fashion. Time-out was called to identify proper site procedure proper surgeon and IV antibiotics per weight were administered. She was positioned on the fracture table and a traction and slight internal rotation were performed and biplanar fluoroscopy confirmed fracture and the presence of cannulated screws. The fracture was partially collapsed into varus. I then made a stab incision through the prior incision and removed the 3 screws with a screwdriver without difficulty. I then reduced the fracture and made an incision ( 3-4 cm) proximal to the greater trochanter in using a guidewire made a entry point just lateral to the tip of the greater trochanter and placed a guidewire into the femoral metadiaphysis. I started with a curved awl I then over-reamed with 15 mm flexible reamer and placed my ball-tip guidewire down distally in the femur and measured my length. I selected a 360 x11 125 deg nail and reamed up to a 13. I then placed a 125deg [id number] nail. I confimred reduction and hardware posi tion. I then turned my attention to the hip screw where I used a guidewire and a tip apex distance of less than 1.5 measured my hip screw. The bone in the femoral neck was deficient given the recent placement of cannulated screws so I then pre drilled and placed a 95mm hip screw just posterior to the nail and parallel to the hip screw. Once I was satisfied with the position of the hip screw I turned my attention to the distal aspect of the nail. Using perfect [place] technique I placed 1 static distal interlocking screw in standard AO technique. I then removed all I then placed my set screw proximally and removed all extraneous instrumentation. Final biplanar radiographs were taken. I was satisfied with the position of the hardware and the fracture reduction. I think copiously irrigated closed with absorbable sutures rufus and injected 30 mL of into the area of the incisions. Traction was let down patient was placed in sterile dressing awakened from anesthesia brought to recovery room stable condition there were no known complications.
[2023-02-21] MEDS: ceFAZolin Sodium/Dextrose,Iso 2 GM/50 ML PIGGYBACK IV (16:29)
[2023-02-21] MEDS: Acetaminophen 325 MG TABLET 650 MG PO (16:35)
[2023-02-21] MEDS: oxyCODONE HCl Immed Release 5 MG TABLET PO ×2 (16:36→20:30)
[2023-02-21] MEDS: HYDROmorphone HCl 0.5 MG/0.5 ML SYRINGE 0.25 MG IVPUSH ×2 (19:15→23:13)
[2023-02-21] MEDS: Docusate Sodium 100 MG CAPSULE PO (19:15)
[2023-02-21] MEDS: 0.9 % Sodium Chloride Flush 3 ML SYRINGE IVFLUSH (19:16)
[2023-02-21] MEDS: Celecoxib 200 MG CAPSULE PO (19:16)
[2023-02-21] MEDS: oxyCODONE HCl ER 10 MG TAB.ER.12H PO (19:16)
--- NOTE | 2023-02-21 19:32 | PHA.MEDREC ---
Pharmacy Consult ? Medication Reconciliation Pharmacy has completed the medication reconciliation. SPOKE WITH PT. HER [facility] IS [facility] DIRECTOR = MARY AT EXT [address]
[2023-02-21] MEDS: traZODone HCL 50 MG TABLET PO (21:45)
[2023-02-21] MEDS: busPIRone HCl 10 MG TABLET 30 MG PO (21:45)
[2023-02-22 03:11] VITALS: BP 112/52; PULSE 67; RESP 18; TEMP 36.7; O2SAT 96
[2023-02-22] MEDS: Lactated Ringers 1,000 ML 100 ML IVCONT (03:11)
[2023-02-22] MEDS: HYDROmorphone HCl 0.5 MG/0.5 ML SYRINGE 0.25 MG IVPUSH ×5 (03:15→22:16)
[2023-02-22] MEDS: Acetaminophen 325 MG TABLET 650 MG PO ×3 (06:30→23:50)
[2023-02-22] MEDS: oxyCODONE HCl Immed Release 5 MG TABLET PO ×5 (06:30→23:49)
[2023-02-22 06:34] LABS: MANUAL DIFF FLAG NO
[2023-02-22 06:41] LABS: Basophils Percent Auto 0.3 % (0-2); Eosinophils Absolute Auto 0.1 X10*3/uL (0.0-0.4); Eosinophils Percent Auto 2.4 % (0-4); Hematocrit 28.1 % (37.0-47.0); Hemoglobin 8.9 g/dl (12.0-16.0); Imm Gran Abs Auto 0.01 X10*3/uL (0.00-0.03); Imm Gran Pct Auto 0.2 % (0.0-0.4); Lymphocytes Absolute Auto 1.8 X10*3/uL (1.2-4.9); Lymphocytes Percent Auto 30.2 % (20-40); Mean Corpuscular HGB Conc 31.7 g/dl (31.0-35.0); Mean Corpuscular Hemoglobin 30.2 pg (27.0-33.0); Mean Corpuscular Volume 95.3 fL (80.0-98.0); Mean Platelet Volume 10.8 fL (9.4-12.3); Monocytes Absolute Auto 0.5 X10*3/uL (0.1-1.2); Monocytes Percent Auto 7.9 % (2-11); Neutrophils Absolute Auto 3.5 x10*3/uL (2.0-8.3); Platelet Count 178 X10*3/uL (160-400); Red Blood Count 2.95 X10*6/uL (4.20-5.50); Red Cell Distribution Width 13.1 % (11.0-16.0); White Blood Count 5.9 X10*3/uL (4.8-10.8)
[2023-02-22 07:06] LABS: Anion Gap 8 (12-20); Blood Urea Nitrogen 16 mg/dL (9-16); Calcium 8.1 mg/dL (8.4-10.2); Carbon Dioxide 26 mmol/L (22-29); Chloride 108 mmol/L (96-108); Creatinine Clr Calc Pharmacy 124.4; Estimated Glomerular Filt Rate > 60; Glucose Fasting 105 mg/dL (60-99); Potassium 4.1 mmol/L (3.3-5.1); Sodium 138 mmol/L (135-145)
[2023-02-22] MEDS: oxyCODONE HCl ER 10 MG TAB.ER.12H PO ×2 (07:23→19:49)
[2023-02-22] MEDS: Celecoxib 200 MG CAPSULE PO ×2 (07:24→19:50)
[2023-02-22] MEDS: Docusate Sodium 100 MG CAPSULE PO ×2 (07:24→19:50)
[2023-02-22 07:40] VITALS: BP 112/52; PULSE 67; O2SAT 96
[2023-02-22 07:58] VITALS: BP 115/58; PULSE 68; RESP 16; TEMP 36.6; O2SAT 100
--- NOTE | 2023-02-22 08:03 | HO.POSTANES ---
Post Anesthesia Evaluation Post Anesthesia Evaluation Vital Signs: Vital Signs Temp Pulse Resp BP Pulse Ox O2 Del Method 02/22/23 07:58 97.8 F 68 16 115/58 L 100 Room Air 02/22/23 07:40 67 112/52 L 96 02/22/23 03:11 98.1 F 67 18 112/52 L 96 Room Air 02/21/23 23:21 98.2 F 59 18 100/54 L 99 Room Air Anesthesia: General Mental Status: Awake Pain Control: Satisfactory (pain difficult to control) Nausea/Vomiting: Mild Hydration: Adequate Anesthesia-Related Issues: No Anes. Related Issues
--- NOTE | 2023-02-22 08:58 | PM.PNORT ---
Subjective Subjective Date of Service: 02/22/23 Interval history: POD1 s/p right hip removal of cannulated screws with placement of IM Nail. Patient is resting in the recliner comfortably. No overnight events. No additional compalints. Physical Exam Vital Signs: Vital Signs: Last Vital Signs Temp 97.8 F 02/22/23 07:58 Pulse 68 02/22/23 07:58 Resp 16 02/22/23 07:58 BP 115/58 L 02/22/23 07:58 Pulse Ox 100 02/22/23 07:58 O2 Del Method Room Air 02/22/23 07:58 O2 Flow Rate 1 02/21/23 14:59 BMI result Body Mass Index 30.4 Const: General: cooperative, healthy appearing and no acute distress Resp: Effort & Inspection: normal respiratory effort and able to speak in complete sentences Cardio: Rate: regular rate Peripheral pulses: Peripheral pulses 2+ throughout GI: Palpation (GI): Soft to palpation Skin: Lesions: no lesions Rashes: no rashes Extrem: Other: Right hip dressings c/d/i. Able to dorsi/plantar flex. NVI. Procedures Date of Service Date of Service: 02/22/23 Progress Note: A&P Assessment and plan (1) Femur fracture: Status: Acute Assessment and Plan: Continue pain mgmnt Begin Lovenox for dvt ppx begin PT for Right hip removal of cannulated screws with placement of IM NAil - TTWB Dispo planning-Pending PT eval, pain mgmnt Time Spent With Patient Time: Total time managing care of this patient today ____ minutes. Quality Stroke Does the patient have a stroke diagnosis?: No VTE Prior VTE?: No VTE Risk Level:: Medical - moderate - high VTE Device Contraindication: N/A - Device Ordered VTE Drug Contraindication: N/A - Med Ordered
--- NOTE | 2023-02-22 09:02 | MHC.CM.PN ---
STR BEING RECOMMENDED. REFERRALS MADE TO THE THREE SNFS THAT WORK WITH METHADONE TREATMENT: [facility], [facility], AND [facility]
--- NOTE | 2023-02-22 10:26 | HE.PHANOTE ---
RE: methadone Received last dose verification form from [facility]; 75mg on 02/21/23
[2023-02-22] MEDS: Enoxaparin Sodium 40 MG/0.4 ML SYRINGE SUBCUT (11:41)
[2023-02-22 11:45] VITALS: BP 100/54; PULSE 69; RESP 18; TEMP 36.3; O2SAT 96
--- NOTE | 2023-02-22 13:00 | P.CONHOSP_ITS ---
History of Present Illness Data of Consult Service Date: 02/22/23 Primary Care Provider: Pam Brito MD [facility] Reason for consult: Medical management Pt is a 32-year-old female with a PMH significant for anxiety/depression, history of hepatitis-C, current everyday smoker, and hx of opioid use on chronic methadone therapy admitted to Orthopedic surgery for placement of intramedullary nail of right femur. Hospitalist consult for routine medical management. Patient complains of 9/10 pain in knee and hip at surgical sites with some swelling. However patient states that post surgery is going ?as well as one can expect? and has no other acute medical complaints at this time. Patient denies numbness or tingling in extremities. No fever, chills, nausea, vomiting, abdominal pain. Denies difficulty breathing. No chest pain/pressure, palpitations. No lightheadedness dizziness Review of Systems Review of Systems: Right knee and hip pain and swelling Patient has no other acute complaints at this time Yes all other systems are reviewed and are negative [facility] Medical History Asthma Bipolar 1 disorder Depression with anxiety Hepatitis C Hepatitis C antibody test positive Hx of hepatitis C Numbness and tingling of both upper extremities Numerous moles Polysubstance abuse Skin lesion of left arm Suicide attempt Family History Father Sleep apnea Diabetes mellitus Diabetic neuropathy Mother Multiple sclerosis Colitis Fibromyalgia Maternal Grandfather CVD (cardiovascular disease) Kidney disease Heart disease Maternal Grandmother Lupus Arthritis Rheumatoid arthritis Paternal Grandfather No problems noted. Paternal Grandmother No problems noted. Brother No problems noted. Sister No problems noted. Son No problems noted. Son No problems noted. Surgical History No pertinent past surgical history Social History Household Members: Family Household Members Other:: RENTS A ROOM Housing: Apartment Housing Other:: 2nd floor duplex Do you presently have visiting nurse or other home services: Yes Alcohol intake: former Patient Tobacco Use Status: Former Tobacco user Tobacco use type: Cigarette Cigarette Packs Per Day: 0.5 Cigarettes Per Day: 10 Smoked in Last 30 Days: Yes e-Cigarette/Vaping Use: Never Used Patient Interested in Nicotine Replacement: No Patient Given Instructions on How to Stop Smoking: No Second Hand Smoke Exposure: No Use of substances other than those prescribed or required for medical reasons: Yes Substance Use Type: Marijuana Substance Use Frequency: Daily Last Used Substance: Days (ago) Currently Displaying Signs/Symptoms of Drug Intoxication Withdrawal: No Any prior treatment program specific to substance use: No Have you been hit, kicked, punched, or otherwise hurt by someone within the past year? If so, by whom?: No Do you feel safe in your current relationship?: No Current Relationship Is there a partner from a previous relationship who is making you feel unsafe now?: No Are you made to feel afraid or neglected: No Are you DNR?: No Advance Directives: No Advance Directives Information Provided: Yes Advance Directives on File: No Do you have thoughts of harming others: None Do you have a plan to hurt others: No Plan Recently lost weight without trying: No Nutrition Risks: No Nutritional Risk Patient : No : No Poor oral hygiene: No service: No Current occupational status: unemployed and disabled Meds Allergies Allergy/AdvReac Type Severity Reaction Status Date / Time tramadol [Ultram] Allergy Unknown rash Verified 01/18/23 16:09 acetaminophen [From TYLENOL] AdvReac Unknown STOMACH Verified 01/18/23 16:09 UPSET Active Medications: Current Medications Acetaminophen (Acetaminophen 325 Mg Tablet) 650 mg PO Q6H PRN PRN Reason: Pain, Mild (Pain Scale 1-3) Last Admin: 02/22/23 06:30 Dose: 650 mg Albuterol Sulfate (Albuterol Sulfate 90 Mcg 8 Gm Inhaler) 1 puff INHALE QID PRN PRN Reason: shortness of breath or wheezing Buspirone HCl (Buspirone Hcl 10 Mg Tablet) 30 mg PO TID [facility] Celecoxib (Celecoxib 200 Mg Capsule) 200 mg PO BID [facility] Last Admin: 02/22/23 07:24 Dose: 200 mg Docusate Sodium (Docusate Sodium 100 Mg Capsule) 100 mg PO BID [facility] Last Admin: 02/22/23 07:24 Dose: 100 mg Enoxaparin Sodium (Enoxaparin Sodium 40 Mg/0.4 Ml Syringe) 40 mg SUBCUT Q24H [facility] Last Admin: 02/22/23 11:41 Dose: 40 mg Hydromorphone HCl (Hydromorphone Hcl 0.5 Mg/0.5 Ml Syringe) 0.25 mg IVPUSH Q4H PRN; Protocol PRN Reason: Pain, Severe (Pain Scale 7-10) Last Admin: 02/22/23 11:41 Dose: 0.25 mg Lactated Ringer's (Lr) 1,000 mls @ 100 mls/hr IVCONT .Q10H [facility] Last Admin: 02/22/23 03:11 Dose: 100 mls/hr Non-Formulary Medication (Methadone) 75 mg PO DAILY [facility] Non-Formulary Medication (Citalopram) 40 mg PO DAILY [facility] Ondansetron HCl (Ondansetron Hcl 4 Mg/2 Ml Vial) 4 mg IVPUSH Q8H PRN PRN Reason: Nausea and Vomiting Oxycodone HCl (Oxycodone Hcl Immed Release 5 Mg Tablet) 5 mg PO Q4H PRN PRN Reason: Pain, Moderate(Pain Scale 4-6) Last Admin: 02/22/23 10:25 Dose: 5 mg Oxycodone HCl (Oxycodone Hcl Er 10 Mg Tab.Er.12h) 10 mg PO BID [facility] Last Admin: 02/22/23 07:23 Dose: 10 mg Pharmacy Consult (Consult Rx Perform Med Rec) 1 each MISCELLANE ONCE PRN PRN Reason: Consult order Sodium Chloride (0.9 % Sodium Chloride Flush 3 Ml Syringe) 3 ml IVFLUSH QSHIFT [facility] Last Admin: 02/22/23 07:26 Dose: Not Given Vitamin D (Cholecalciferol (Vitamin D3) 25 Mcg Tablet) 25 mcg PO DAILY [facility] Home Medications Medication Instructions Recorded Confirmed Last Taken Type methadone 5 mg/5 mL oral solution 75 mg PO DAILY 12/25/22 02/21/23 02/21/23 History citalopram 40 mg tablet 40 mg PO DAILY 12/29/22 02/21/23 02/21/23 History clonazepam 0.5 mg tablet 1 tab PO DAILY PRN panic attack 12/29/22 02/21/23 12/29/22 History trazodone 50 mg tablet 1 tab PO BEDTIME 12/29/22 02/21/23 12/28/22 History buspirone 30 mg tablet 30 mg PO TID 0502/21/23 02/21/23 History cholecalciferol (vitamin D3) 25 25 mcg PO DAILY 02/21/23 02/21/23 Unknown History mcg (1,000 unit) tablet Physical Exam Vital Signs and Narrative: Vital Signs: Last Vital Signs Temp 97.4 F 02/22/23 11:45 Pulse 69 02/22/23 11:45 Resp 18 02/22/23 11:45 BP 100/54 L 02/22/23 11:45 Pulse Ox 96 02/22/23 11:45 O2 Del Method Room Air 02/22/23 11:45 O2 Flow Rate 1 02/21/23 14:59 BMI result Body Mass Index 30.4 General: AOx3, no acute distress Resp: CTA bilaterally CVS: S1, S2, RRR GI: +BS, NT, no distention Skin: Warm, dry Neuro: Cranial nerves II-XII grossly intact bilaterally. Motor grossly intact bilaterally. Pt can move all four extremities spontaneously. Sensation to light touch intact bilaterally of lower extremities. Musculoskeletal: Clean bandages in place over right hip and knee. Extremities: No edema Psych: Appropriate affect Results Labs 02/22/23 06:21 02/22/23 06:21 Labs: Laboratory Results - last 24 hr 02/22/23 02/22/23 06:21 06:21 MCV 95.3 MCH 30.2 MCHC 31.7 RDW 13.1 Plt Count 178 MPV 10.8 Immature Gran % (Auto) 0.2 Neut % (Auto) 59.0 Lymph % (Auto) 30.2 [place] % (Auto) 7.9 Eos % (Auto) 2.4 Baso % (Auto) 0.3 Lymph # (Auto) 1.8 [place] # (Auto) 0.5 Eos # (Auto) 0.1 Baso # (Auto) 0.0 Abs Immat Gran (auto) 0.01 Absolute Neuts (auto) 3.5 Absolute Nucleated RBC 0.000 Nucleated RBC % (auto) 0.0 Anion Gap 8 L Estim Creat Clear Calc 124.4 Estimated GFR > 60 Fasting Glucose 105 H Calcium 8.1 L D Assessment and Plan (1) Femur fracture: Status: Acute Plan Pt is a 32-year-old female with a PMH significant for anxiety/depression, history of hepatitis-C, current everyday smoker, and hx of opioid use on chronic methadone therapy admitted to Orthopedic surgery for placement of intramedullary nail of right femur. Hospitalist consult for routine medical management. Patient complains of 9/10 pain in knee and hip at surgical sites with some swelling. However patient states that post surgery is going ?as well as one can expect? and has no other acute medical complaints at this time. Right hip removal of cannulated screws with placement of IM nail POD1 Incentive spirometry at bedside Plan as per Orthopedics Opioid use disorder Continue methadone Insomnia Continue trazodone Constipation Chronic, from opioid use disorder Continued docusate 100 mg p.o. b.i.d. Anxiety/panic attacks Continue citalopram, buspirone, clonazepam Thank you for allowing us to participate in the care of this patient. Signing off at this time. Please let us know if there are any acute complaints or questions. Time Spent With Patient Time: Total time managing care of this patient today ____ minutes.
[2023-02-22] MEDS: busPIRone HCl 10 MG TABLET 30 MG PO ×2 (13:07→19:50)
[2023-02-22] MEDS: methADONE HCl 20 MG/2 ML ORAL.CONC 75 MG PO (13:07)
[2023-02-22] MEDS: Cholecalciferol (Vitamin D3) 25 MCG TABLET PO (13:07)
[2023-02-22] MEDS: Escitalopram Oxalate 20 MG TABLET PO (13:34)
[2023-02-22] MEDS: 0.9 % Sodium Chloride Flush 3 ML SYRINGE IVFLUSH ×2 (15:25→23:51)
--- NOTE | 2023-02-22 15:30 | MHC.CM.PN ---
PT REPORTS SHE HAS BEEN STAYING WITH HER MOTHER SINCE HER ORIGINAL INJURY AND HAS HAD [facility] COMING TO THE HOME TO PROVIDE NURSING, PT AND OT. SHE IS ALSO ACTIVE WITH [facility] IN [place] FOR MMT. PT REPORTS SHE DOES NOT FEEL SHE IS ABLE TO HEAL AT HOME AND NEEDS A STR. SHE IS AWARE HER OPTIONS WILL BE LIMITED DUE TO METHADONE TREATMENT SHE SAYS SHE KNOWS SOMEONE WHO WORKS AT [employer] AND KNEW SHE WOULD PROBABLY HAVE TO GO THERE SHE REPORTS HER COUNSELOR AT [facility] IS LAAN ([id number]) AND HER STUDENT DEVELOPMENT COORDINATOR IS MARY ([id number]) CM DID CALL [facility] [phone] AND TRY BOTH EXTENSIONS, HOWEVER THEY BOTH LED TO THE SAME VOICEMAIL MESSAGE LEFT REQUESTING A RETURN CALL TO [facility] AT [facility] PER SNF REQUEST PT COMPLETED A HCP TODAY NAMING HER MOTHER THE AGENT SHE IS DONTEID ELGIN AND BOOSTED PCP: KELVIN PIZANO SHE WILL NEED BLS TRANSPORT
[2023-02-22 16:00] VITALS: BP 115/64; PULSE 73; RESP 18; TEMP 36.7; O2SAT 97
[2023-02-22 19:17] VITALS: BP 111/57; PULSE 81; RESP 18; TEMP 36.6; O2SAT 99
[2023-02-22] MEDS: traZODone HCL 50 MG TABLET PO (22:39)
[2023-02-23 03:34] VITALS: BP 117/59; PULSE 71; RESP 18; TEMP 36.2; O2SAT 95
[2023-02-23] MEDS: HYDROmorphone HCl 0.5 MG/0.5 ML SYRINGE 0.25 MG IVPUSH ×3 (03:47→18:07)
[2023-02-23] MEDS: oxyCODONE HCl Immed Release 5 MG TABLET PO ×2 (06:11→15:00)
[2023-02-23] MEDS: Acetaminophen 325 MG TABLET 650 MG PO ×3 (06:11→21:35)
[2023-02-23 06:50] LABS: MANUAL DIFF FLAG NO
[2023-02-23 06:54] LABS: Basophils Percent Auto 0.5 % (0-2); Eosinophils Absolute Auto 0.2 X10*3/uL (0.0-0.4); Hematocrit 26.1 % (37.0-47.0); Hemoglobin 8.5 g/dl (12.0-16.0); Imm Gran Abs Auto 0.03 X10*3/uL (0.00-0.03); Imm Gran Pct Auto 0.5 % (0.0-0.4); Lymphocytes Percent Auto 35.2 % (20-40); Mean Corpuscular HGB Conc 32.6 g/dl (31.0-35.0); Mean Corpuscular Volume 95.3 fL (80.0-98.0); Mean Platelet Volume 11.3 fL (9.4-12.3); Monocytes Absolute Auto 0.6 X10*3/uL (0.1-1.2); Monocytes Percent Auto 11.1 % (2-11); Neutrophils Absolute Auto 2.8 x10*3/uL (2.0-8.3); Neutrophils Percent Auto 48.7 % (45-73); Platelet Count 156 X10*3/uL (160-400); Red Blood Count 2.74 X10*6/uL (4.20-5.50); Red Cell Distribution Width 13.2 % (11.0-16.0); White Blood Count 5.8 X10*3/uL (4.8-10.8)
[2023-02-23 07:15] LABS: Anion Gap 8 (12-20); Blood Urea Nitrogen 13 mg/dL (9-16); Calcium 8.3 mg/dL (8.4-10.2); Carbon Dioxide 27 mmol/L (22-29); Chloride 106 mmol/L (96-108); Creatinine Clr Calc Pharmacy 137.3; Estimated Glomerular Filt Rate > 60; Glucose Fasting 104 mg/dL (60-99); Potassium 4.1 mmol/L (3.3-5.1); Sodium 137 mmol/L (135-145)
[2023-02-23 07:43] VITALS: BP 110/56; PULSE 69; RESP 18; TEMP 36.7; O2SAT 97
--- NOTE | 2023-02-23 07:46 | PM.PNORT ---
Subjective Subjective Date of Service: 02/23/23 Interval history: POD 2 s/p right hip removal of cannulated screws with placement of IM Nail. Patient is resting in bed, she was able to ambulate to the bathroom without difficulty. No overnight events. No additional compalints. Physical Exam Vital Signs: Vital Signs: Last Vital Signs Temp 98.1 F 02/23/23 07:43 Pulse 69 02/23/23 07:43 Resp 18 02/23/23 07:43 BP 110/56 L 02/23/23 07:43 Pulse Ox 97 02/23/23 07:43 O2 Del Method Room Air 02/23/23 07:43 O2 Flow Rate 1 02/21/23 14:59 BMI result Body Mass Index 30.4 Const: General: cooperative, healthy appearing and no acute distress Resp: Effort & Inspection: normal respiratory effort and able to speak in complete sentences Cardio: Rate: regular rate Peripheral pulses: Peripheral pulses 2+ throughout GI: Palpation (GI): Soft to palpation Skin: Lesions: no lesions Rashes: no rashes Extrem: Other: Right hip dressings c/d/i. Able to dorsi/plantar flex. NVI. Procedures Date of Service Date of Service: 02/23/23 Progress Note: A&P Assessment and plan (1) Femur fracture: Status: Acute Assessment and Plan: Continue pain mgmnt continue Lovenox for dvt ppx continue PT for Right hip removal of cannulated screws with placement of IM NAil - TTWB Dispo planning-pending rehab placement Time Spent With Patient Time: Total time managing care of this patient today ____ minutes. Quality Stroke Does the patient have a stroke diagnosis?: No VTE Prior VTE?: No VTE Risk Level:: Medical - moderate - high VTE Device Contraindication: N/A - Device Ordered VTE Drug Contraindication: N/A - Med Ordered
[2023-02-23] MEDS: 0.9 % Sodium Chloride Flush 3 ML SYRINGE IVFLUSH ×3 (09:03→21:38)
[2023-02-23] MEDS: Cholecalciferol (Vitamin D3) 25 MCG TABLET PO (09:04)
[2023-02-23] MEDS: busPIRone HCl 10 MG TABLET 30 MG PO ×3 (09:04→21:37)
[2023-02-23] MEDS: oxyCODONE HCl ER 10 MG TAB.ER.12H PO ×2 (09:04→21:34)
[2023-02-23] MEDS: methADONE HCl 20 MG/2 ML ORAL.CONC 75 MG PO (09:04)
[2023-02-23] MEDS: Escitalopram Oxalate 20 MG TABLET PO (09:04)
[2023-02-23] MEDS: Celecoxib 200 MG CAPSULE PO ×2 (09:05→21:36)
[2023-02-23] MEDS: Docusate Sodium 100 MG CAPSULE PO ×2 (09:05→21:37)
[2023-02-23] MEDS: clonazePAM 0.5 MG TABLET PO (11:11)
[2023-02-23] MEDS: Enoxaparin Sodium 40 MG/0.4 ML SYRINGE SUBCUT (11:11)
--- NOTE | 2023-02-23 13:35 | MHC.CM.PN ---
per rounds pt will be going to [facility] need guess dosing arranged message left timerds at [facility] [phone] x [phone] no reply
--- NOTE | 2023-02-23 13:47 | MHC.CM.PN ---
pt is n ow required to have 3 midnights
[2023-02-23 15:39] VITALS: BP 100/62; PULSE 69; RESP 18; TEMP 36.8; O2SAT 97
[2023-02-23 19:30] VITALS: BP 110/66; PULSE 70; RESP 18; TEMP 36.4; O2SAT 97
[2023-02-23] MEDS: traZODone HCL 50 MG TABLET PO (21:36)
--- NOTE | 2023-02-23 23:40 | P.DS_ITS ---
DS: Providers Provider Date of Service: 02/28/23 Date of admission: 02/21/23 10:51 Primary care physician: Pam Brito MD Consults: 02/21/23 15:43 Consult to Hospitalist Routine Comment: Consulting Provider: Hospitalist Reason For Exam: routine medical managment DS: Diagnosis Discharge Diagnosis (1) Femur fracture: Status: Acute DS: Summary Hospital Course Hospital Course: The patient underwent a successful right hip removal of cannulated screws with placement of IM Nail, they were transferred to PACU and then to the floor to recover. During their stay, their vitals were stable, afebrile at 97.5. Labs were unremarkable, H/H 8.5/26.1. POD 1 they were started on Lovenox injections for DVT ppx, they also received Physical Therapy services twice a day. Prior to discharge, their dressing was changed, incision clean dry and intact, new dressing applied and the plan was to be discharged to rehab for additional therapy before returning home. Time Spent with Patient Time attestation: Total time managing care of this patient today ____ minutes. Discharge coordination time: Less than 30 minutes Quality: Safe Use of Opioids Does Pt have an Active Cancer Diagnosis on the Problem List?: No Quality: Stroke Does the patient have a stroke diagnosis?: No Physical Exam Vital Signs: Vital Signs: Last Vital Signs Temp 97.5 F 02/23/23 19:30 Pulse 70 02/23/23 19:30 Resp 18 02/23/23 19:30 BP 110/66 02/23/23 19:30 Pulse Ox 97 02/23/23 19:30 O2 Del Method Room Air 02/23/23 19:30 O2 Flow Rate 1 02/21/23 14:59 BMI result Body Mass Index 30.4 Const: General: cooperative, healthy appearing and no acute distress Resp: Effort & Inspection: normal respiratory effort and able to speak in complete sentences Cardio: Rate: regular rate Peripheral pulses: Peripheral pulses 2+ throughout GI: Palpation (GI): Soft to palpation Skin: Lesions: no lesions Rashes: no rashes Extrem: Other: Right hip dressings c/d/i. Able to dorsi/plantar flex. NVI. DS: Data Data Completed and Pending Completed studies during hospitalization [Text1]: Procedures Reposition Right Upper Femur with Intramedullary Internal Fixation Device, Percutaneous Approach (12/29/22) Labs on day of discharge: Laboratory Results - last 24 hr 02/23/23 02/23/23 06:09 06:09 WBC 5.8 RBC 2.74 L Hgb 8.5 L Hct 26.1 L MCV 95.3 MCH 31.0 MCHC 32.6 RDW 13.2 Plt Count 156 L MPV 11.3 Immature Gran % (Auto) 0.5 H Neut % (Auto) 48.7 Lymph % (Auto) 35.2 [place] % (Auto) 11.1 H Eos % (Auto) 4.0 Baso % (Auto) 0.5 Lymph # (Auto) 2.0 [place] # (Auto) 0.6 Eos # (Auto) 0.2 Baso # (Auto) 0.0 Abs Immat Gran (auto) 0.03 Absolute Neuts (auto) 2.8 Absolute Nucleated RBC 0.000 Nucleated RBC % (auto) 0.0 Sodium 137 Potassium 4.1 Chloride 106 Carbon Dioxide 27 Anion Gap 8 L BUN 13 Creatinine 0.68 Estim Creat Clear Calc 137.3 Estimated GFR > 60 Fasting Glucose 104 H Calcium 8.3 L Discharge Plan Discharge Anticipated Discharge Date/Time: 02/24/23 12:38 Patient Disposition: Xfer [facility] Discharge Diagnosis: Right hip removal cannulated screws with placement of IM Nail Referrals: Alexandrea Hopper PA-C [Physician Automated Process Operator] - 02/26/23 12:30 pm Discharge Medications: New enoxaparin 40 mg/0.4 mL Syringe 40 mg subcut Q24H 35 Days Qty: 14 0RF celecoxib 200 mg Capsule 200 mg PO BID 30 Days Qty: 60 0RF acetaminophen 325 mg Tablet 650 mg PO Q6H PRN (Reason: Pain, Mild (Pain Scale 1-3)) Qty: 240 0RF docusate sodium 100 mg Capsule 100 mg PO BID 30 Days Qty: 60 0RF oxycodone 5 mg Tablet 10 mg PO Q4H PRN (Reason: Pain, Moderate(Pain Scale 4-6)) 7 Days Qty: 42 0RF Rx Instructions: Partial Fill upon patient request. Continued (DME) walker Misc See Rx Instructions .MEDSUPPLY Qty: 1 0RF Rx Instructions: Folding Front wheeled walker (DME) SHOWER CHAIR See Rx Instructions .ROUTE .MEDSUPPLY Qty: 1 0RF Rx Instructions: As directed citalopram 40 mg tablet 40 mg PO DAILY trazodone 50 mg tablet 1 tab PO BEDTIME clonazepam 0.5 mg tablet 1 tab PO DAILY PRN (Reason: panic attack) buspirone 30 mg tablet 30 mg PO TID cholecalciferol (vitamin D3) 25 mcg (1,000 unit) Tablet 25 mcg PO DAILY methadone 5 mg/5 mL solution 75 mg PO DAILY albuterol sulfate [Ventolin HFA] 90 mcg/actuation HFA aerosol inhaler 1 inh inhalation QID PRN (Reason: shortness of breath or wheezing) Qty: 8.5 1RF Discontinued celecoxib 200 mg capsule 200 mg PO BID Qty: 60 0RF docusate sodium 100 mg Capsule 100 mg PO BID 14 Days Qty: 28 0RF acetaminophen 325 mg Tablet 650 mg PO Q6H PRN (Reason: Pain, Mild (Pain Scale 1-3)) 30 Days Qty: 240 0RF Discharge Orders: Discharge Order (Routine); Ordered 02/28/23 Ordered By: Alexandrea Hopper Diet: Advance to usual diet Activity on Discharge: Walk with crutches Stand Alone Forms: Patient Portal Discharge page Care Plan Goals: Restore fxn to right hip Health Concerns: None Plan of Treatment: Gait training, strengthening, ADLs Continue Lovenox for dvt ppx x6 weeks TTWB right lower extremity Keep dressings clean, dry and intact-no showering or tub baths Follow up with Orthopedics in 2 weeks Assessment: Stable for discharge
[2023-02-24] MEDS: oxyCODONE HCl Immed Release 5 MG TABLET PO (03:50)
[2023-02-24] MEDS: Acetaminophen 325 MG TABLET 650 MG PO ×3 (03:50→19:38)
[2023-02-24 04:00] VITALS: BP 123/60; PULSE 68; RESP 19; TEMP 35.5; O2SAT 96
[2023-02-24] MEDS: HYDROmorphone HCl 0.5 MG/0.5 ML SYRINGE 0.25 MG IVPUSH ×3 (06:13→18:07)
[2023-02-24 06:19] LABS: MANUAL DIFF FLAG NO
[2023-02-24 06:28] LABS: Basophils Percent Auto 0.5 % (0-2); Eosinophils Absolute Auto 0.2 X10*3/uL (0.0-0.4); Eosinophils Percent Auto 4.1 % (0-4); Hematocrit 25.6 % (37.0-47.0); Hemoglobin 8.2 g/dl (12.0-16.0); Imm Gran Abs Auto 0.02 X10*3/uL (0.00-0.03); Imm Gran Pct Auto 0.3 % (0.0-0.4); Lymphocytes Absolute Auto 1.8 X10*3/uL (1.2-4.9); Lymphocytes Percent Auto 29.8 % (20-40); Mean Corpuscular Hemoglobin 30.1 pg (27.0-33.0); Mean Corpuscular Volume 94.1 fL (80.0-98.0); Mean Platelet Volume 11.3 fL (9.4-12.3); Monocytes Absolute Auto 0.5 X10*3/uL (0.1-1.2); Monocytes Percent Auto 8.3 % (2-11); Neutrophils Absolute Auto 3.4 x10*3/uL (2.0-8.3); Platelet Count 165 X10*3/uL (160-400); Red Blood Count 2.72 X10*6/uL (4.20-5.50); Red Cell Distribution Width 12.9 % (11.0-16.0); White Blood Count 5.9 X10*3/uL (4.8-10.8)
[2023-02-24 06:39] LABS: Anion Gap 11 (12-20); Blood Urea Nitrogen 15 mg/dL (9-16); Calcium 8.4 mg/dL (8.4-10.2); Carbon Dioxide 26 mmol/L (22-29); Chloride 106 mmol/L (96-108); Creatinine Clr Calc Pharmacy 133.4; Estimated Glomerular Filt Rate > 60; Glucose Fasting 101 mg/dL (60-99); Sodium 139 mmol/L (135-145)
[2023-02-24 07:35] VITALS: BP 103/56; PULSE 68; RESP 18; TEMP 36.6; O2SAT 98
[2023-02-24] MEDS: Celecoxib 200 MG CAPSULE PO ×2 (08:15→21:06)
[2023-02-24] MEDS: Escitalopram Oxalate 20 MG TABLET PO (08:15)
[2023-02-24] MEDS: busPIRone HCl 10 MG TABLET 30 MG PO ×3 (08:15→21:06)
[2023-02-24] MEDS: methADONE HCl 20 MG/2 ML ORAL.CONC 75 MG PO (08:15)
[2023-02-24] MEDS: Docusate Sodium 100 MG CAPSULE PO ×2 (08:15→21:06)
[2023-02-24] MEDS: oxyCODONE HCl ER 10 MG TAB.ER.12H PO ×2 (08:15→21:56)
[2023-02-24] MEDS: Cholecalciferol (Vitamin D3) 25 MCG TABLET PO (08:16)
[2023-02-24] MEDS: 0.9 % Sodium Chloride Flush 3 ML SYRINGE IVFLUSH ×3 (08:18→19:38)
--- NOTE | 2023-02-24 08:47 | PM.PNORT ---
Subjective Subjective Date of Service: 02/24/23 Interval history: POD 3 s/p right hip removal of cannulated screws with placement of IM Nail. Patient is resting in bed, she was able to ambulate to the bathroom without difficulty. No overnight events. No additional compalints. Physical Exam Vital Signs: Vital Signs: Last Vital Signs Temp 97.8 F 02/24/23 07:35 Pulse 68 02/24/23 07:35 Resp 18 02/24/23 07:35 BP 103/56 L 02/24/23 07:35 Pulse Ox 98 02/24/23 07:35 O2 Del Method Room Air 02/24/23 07:35 O2 Flow Rate 1 02/21/23 14:59 BMI result Body Mass Index 30.4 Const: General: cooperative, healthy appearing and no acute distress Resp: Effort & Inspection: normal respiratory effort and able to speak in complete sentences Cardio: Rate: regular rate Peripheral pulses: Peripheral pulses 2+ throughout GI: Palpation (GI): Soft to palpation Skin: Lesions: no lesions Rashes: no rashes Extrem: Other: Right hip dressings c/d/i. Able to dorsi/plantar flex. NVI. Procedures Date of Service Date of Service: 02/24/23 Progress Note: A&P Assessment and plan (1) Femur fracture: Status: Acute Assessment and Plan: Continue pain mgmnt continue Lovenox for dvt ppx continue PT for Right hip removal of cannulated screws with placement of IM NAil - TTWB Dispo planning-pending rehab placement Time Spent With Patient Time: Total time managing care of this patient today ____ minutes. Quality Stroke Does the patient have a stroke diagnosis?: No VTE Prior VTE?: No VTE Risk Level:: Medical - moderate - high VTE Device Contraindication: N/A - Device Ordered VTE Drug Contraindication: N/A - Med Ordered
[2023-02-24 10:01] VITALS: BP 103/56; PULSE 68; O2SAT 98
[2023-02-24] MEDS: oxyCODONE HCl Immed Release 5 MG TABLET 10 MG PO ×3 (10:03→19:38)
[2023-02-24 11:11] VITALS: BP 113/60; PULSE 69; RESP 20; TEMP 36.5; O2SAT 97
[2023-02-24] MEDS: Enoxaparin Sodium 40 MG/0.4 ML SYRINGE SUBCUT (11:14)
[2023-02-24 15:13] VITALS: BP 110/62; PULSE 62; RESP 18; TEMP 36.2; O2SAT 98
[2023-02-24 20:00] VITALS: BP 128/57; PULSE 67; RESP 18; TEMP 36.2; O2SAT 99
[2023-02-24] MEDS: traZODone HCL 50 MG TABLET PO (21:06)
[2023-02-25] MEDS: oxyCODONE HCl Immed Release 5 MG TABLET 10 MG PO ×4 (00:05→19:01)
[2023-02-25 03:37] VITALS: BP 102/50; PULSE 56; RESP 16; TEMP 36.1; O2SAT 97
[2023-02-25 04:20] LABS: MANUAL DIFF FLAG NO
[2023-02-25 04:21] LABS: Basophils Percent Auto 0.5 % (0-2); Eosinophils Absolute Auto 0.3 X10*3/uL (0.0-0.4); Eosinophils Percent Auto 3.9 % (0-4); Hematocrit 25.5 % (37.0-47.0); Hemoglobin 8.4 g/dl (12.0-16.0); Imm Gran Abs Auto 0.03 X10*3/uL (0.00-0.03); Imm Gran Pct Auto 0.5 % (0.0-0.4); Lymphocytes Absolute Auto 2.2 X10*3/uL (1.2-4.9); Lymphocytes Percent Auto 34.4 % (20-40); Mean Corpuscular HGB Conc 32.9 g/dl (31.0-35.0); Mean Corpuscular Hemoglobin 30.2 pg (27.0-33.0); Mean Corpuscular Volume 91.7 fL (80.0-98.0); Mean Platelet Volume 10.7 fL (9.4-12.3); Monocytes Absolute Auto 0.6 X10*3/uL (0.1-1.2); Monocytes Percent Auto 8.5 % (2-11); Neutrophils Absolute Auto 3.4 x10*3/uL (2.0-8.3); Neutrophils Percent Auto 52.2 % (45-73); Platelet Count 191 X10*3/uL (160-400); Red Blood Count 2.78 X10*6/uL (4.20-5.50); Red Cell Distribution Width 12.6 % (11.0-16.0); White Blood Count 6.5 X10*3/uL (4.8-10.8)
[2023-02-25 04:39] LABS: Anion Gap 9 (12-20); Blood Urea Nitrogen 16 mg/dL (9-16); Calcium 8.7 mg/dL (8.4-10.2); Carbon Dioxide 27 mmol/L (22-29); Chloride 107 mmol/L (96-108); Creatinine Clr Calc Pharmacy 137.3; Estimated Glomerular Filt Rate > 60; Glucose Fasting 96 mg/dL (60-99); Sodium 139 mmol/L (135-145)
[2023-02-25] MEDS: Acetaminophen 325 MG TABLET 650 MG PO ×2 (07:15→13:47)
[2023-02-25] MEDS: 0.9 % Sodium Chloride Flush 3 ML SYRINGE IVFLUSH ×2 (07:17→15:35)
[2023-02-25 07:58] VITALS: BP 114/67; PULSE 57; RESP 18; TEMP 36.3; O2SAT 100
[2023-02-25] MEDS: methADONE HCl 20 MG/2 ML ORAL.CONC 75 MG PO (09:32)
[2023-02-25] MEDS: Docusate Sodium 100 MG CAPSULE PO ×2 (09:32→20:15)
[2023-02-25] MEDS: Escitalopram Oxalate 20 MG TABLET PO (09:33)
[2023-02-25] MEDS: Celecoxib 200 MG CAPSULE PO ×2 (09:33→20:14)
[2023-02-25] MEDS: busPIRone HCl 10 MG TABLET 30 MG PO ×3 (09:33→20:14)
[2023-02-25] MEDS: Cholecalciferol (Vitamin D3) 25 MCG TABLET PO (09:33)
[2023-02-25] MEDS: oxyCODONE HCl ER 10 MG TAB.ER.12H PO ×2 (09:33→20:14)
--- NOTE | 2023-02-25 09:40 | PM.PNORT ---
Subjective Subjective Date of Service: 02/25/23 Interval history: POD 4 s/p right hip removal of cannulated screws with placement of IM Nail. Patient is resting in bed, she was able to ambulate to the bathroom without difficulty. No overnight events. No additional compalints. Physical Exam Vital Signs: Vital Signs: Last Vital Signs Temp 97.3 F 02/25/23 07:58 Pulse 57 02/25/23 07:58 Resp 18 02/25/23 07:58 BP 114/67 02/25/23 07:58 Pulse Ox 100 02/25/23 07:58 O2 Del Method Room Air 02/25/23 07:58 O2 Flow Rate 1 02/21/23 14:59 BMI result Body Mass Index 30.4 Const: General: cooperative, healthy appearing and no acute distress Resp: Effort & Inspection: normal respiratory effort and able to speak in complete sentences Cardio: Rate: regular rate Peripheral pulses: Peripheral pulses 2+ throughout GI: Palpation (GI): Soft to palpation Skin: Lesions: no lesions Rashes: no rashes Extrem: Other: Right hip dressings c/d/i. Able to dorsi/plantar flex. NVI. Procedures Date of Service Date of Service: 02/25/23 Progress Note: A&P Assessment and plan (1) Femur fracture: Status: Acute Assessment and Plan: Continue pain mgmnt continue Lovenox for dvt ppx continue PT for Right hip removal of cannulated screws with placement of IM NAil - TTWB Dispo planning-pending rehab placement Time Spent With Patient Time: Total time managing care of this patient today ____ minutes. Quality Stroke Does the patient have a stroke diagnosis?: No VTE Prior VTE?: No VTE Risk Level:: Medical - moderate - high VTE Device Contraindication: N/A - Device Ordered VTE Drug Contraindication: N/A - Med Ordered
[2023-02-25] MEDS: Enoxaparin Sodium 40 MG/0.4 ML SYRINGE SUBCUT (11:00)
[2023-02-25] MEDS: HYDROmorphone HCl 0.5 MG/0.5 ML SYRINGE 0.25 MG IVPUSH ×2 (11:01→17:32)
[2023-02-25 14:59] VITALS: BP 111/66; PULSE 67; RESP 18; TEMP 36.1; O2SAT 97
[2023-02-25 20:00] VITALS: BP 132/77; PULSE 80; RESP 18; TEMP 36.6; O2SAT 99
[2023-02-25] MEDS: traZODone HCL 50 MG TABLET PO (20:14)
[2023-02-25] MEDS: diphenhydrAMINE HCL 25 MG CAPSULE PO (20:15)
[2023-02-26] MEDS: oxyCODONE HCl Immed Release 5 MG TABLET 10 MG PO ×5 (01:29→19:07)
[2023-02-26] MEDS: 0.9 % Sodium Chloride Flush 3 ML SYRINGE IVFLUSH (01:30)
[2023-02-26 04:00] VITALS: BP 137/89; PULSE 88; RESP 18; TEMP 36.6; O2SAT 99
[2023-02-26 06:43] LABS: MANUAL DIFF FLAG NO
[2023-02-26 06:53] LABS: Basophils Absolute Auto 0.1 X10*3/uL (0.0-0.2); Eosinophils Absolute Auto 0.2 X10*3/uL (0.0-0.4); Eosinophils Percent Auto 4.2 % (0-4); Hematocrit 27.6 % (37.0-47.0); Hemoglobin 9.2 g/dl (12.0-16.0); Imm Gran Abs Auto 0.02 X10*3/uL (0.00-0.03); Imm Gran Pct Auto 0.3 % (0.0-0.4); Lymphocytes Absolute Auto 1.9 X10*3/uL (1.2-4.9); Lymphocytes Percent Auto 32.5 % (20-40); Mean Corpuscular HGB Conc 33.3 g/dl (31.0-35.0); Mean Corpuscular Volume 92.9 fL (80.0-98.0); Mean Platelet Volume 10.9 fL (9.4-12.3); Monocytes Absolute Auto 0.6 X10*3/uL (0.1-1.2); Monocytes Percent Auto 9.6 % (2-11); Neutrophils Percent Auto 52.4 % (45-73); Platelet Count 256 X10*3/uL (160-400); Red Blood Count 2.97 X10*6/uL (4.20-5.50); Red Cell Distribution Width 12.8 % (11.0-16.0); White Blood Count 5.8 X10*3/uL (4.8-10.8)
[2023-02-26 07:10] LABS: Anion Gap 10 (12-20); Blood Urea Nitrogen 17 mg/dL (9-16); Carbon Dioxide 28 mmol/L (22-29); Chloride 106 mmol/L (96-108); Creatinine Clr Calc Pharmacy 135.3; Estimated Glomerular Filt Rate > 60; Glucose Fasting 91 mg/dL (60-99); Sodium 140 mmol/L (135-145)
[2023-02-26] MEDS: oxyCODONE HCl ER 10 MG TAB.ER.12H PO ×2 (07:44→20:14)
[2023-02-26] MEDS: busPIRone HCl 10 MG TABLET 30 MG PO ×3 (07:45→20:14)
[2023-02-26] MEDS: Docusate Sodium 100 MG CAPSULE PO ×2 (07:45→20:14)
[2023-02-26] MEDS: Cholecalciferol (Vitamin D3) 25 MCG TABLET PO (07:46)
[2023-02-26] MEDS: Celecoxib 200 MG CAPSULE PO ×2 (07:46→20:14)
[2023-02-26] MEDS: Escitalopram Oxalate 20 MG TABLET PO (07:46)
[2023-02-26] MEDS: methADONE HCl 20 MG/2 ML ORAL.CONC 75 MG PO (07:46)
[2023-02-26 08:27] VITALS: BP 109/62; PULSE 78; RESP 20; TEMP 36.6; O2SAT 99
[2023-02-26] MEDS: Acetaminophen 325 MG TABLET 650 MG PO (10:56)
[2023-02-26] MEDS: Enoxaparin Sodium 40 MG/0.4 ML SYRINGE SUBCUT (10:56)
--- NOTE | 2023-02-26 11:28 | MHC.CM.PN ---
Addendum entered by Martha Mccain 02/26/23 15:30: [facility] for signature for [facility] +[facility]. The patient signed the consents. The consents were faxed back to [facility]. Original Note: NATALIE Marsh via BLS. Updated clinical info was sent to the facility this am. No response received via [facility]. Called [facility]. Spoke with Abilio from Admissions. [facility] does not have a bed today. They anticipate offering a bed tomorrow.
--- NOTE | 2023-02-26 11:39 | PM.PNORT ---
Subjective Subjective Date of Service: 02/26/23 Interval history: POD 5 s/p right hip removal of cannulated screws with placement of IM Nail. Patient is resting in bed No overnight events. No additional compalints. Physical Exam Vital Signs: Vital Signs: Last Vital Signs Temp 97.8 F 02/26/23 08:27 Pulse 78 02/26/23 08:27 Resp 20 02/26/23 08:27 BP 109/62 02/26/23 08:27 Pulse Ox 99 02/26/23 08:27 O2 Del Method Room Air 02/26/23 08:27 O2 Flow Rate 1 02/21/23 14:59 BMI result Body Mass Index 30.4 Const: General: cooperative, healthy appearing and no acute distress Resp: Effort & Inspection: normal respiratory effort and able to speak in complete sentences Cardio: Rate: regular rate Peripheral pulses: Peripheral pulses 2+ throughout GI: Palpation (GI): Soft to palpation Skin: Lesions: no lesions Rashes: no rashes Extrem: Other: Right hip dressings c/d/i. Able to dorsi/plantar flex. NVI. Procedures Date of Service Date of Service: 02/26/23 Progress Note: A&P Assessment and plan (1) Femur fracture: Status: Acute Assessment and Plan: Continue pain mgmnt continue Lovenox for dvt ppx continue PT for Right hip removal of cannulated screws with placement of IM NAil - TTWB Dispo planning-pending rehab placement Time Spent With Patient Time: Total time managing care of this patient today ____ minutes. Quality Stroke Does the patient have a stroke diagnosis?: No VTE Prior VTE?: No VTE Risk Level:: Medical - moderate - high VTE Device Contraindication: N/A - Device Ordered VTE Drug Contraindication: N/A - Med Ordered
[2023-02-26 15:09] VITALS: BP 131/60; PULSE 77; RESP 20; TEMP 36.7; O2SAT 97
--- NOTE | 2023-02-26 16:16 | PC.NURSE ---
Pt has no IV access,CARLITOS Amador notified,ok to keep IV out
[2023-02-26 19:01] VITALS: BP 127/59; PULSE 66; RESP 20; TEMP 37; O2SAT 97
[2023-02-26] MEDS: traZODone HCL 50 MG TABLET PO (21:34)
[2023-02-27] MEDS: oxyCODONE HCl Immed Release 5 MG TABLET 10 MG PO ×6 (00:57→23:47)
[2023-02-27 04:00] VITALS: BP 117/57; PULSE 65; RESP 18; TEMP 36.6; O2SAT 98
[2023-02-27 07:25] VITALS: BP 110/62; PULSE 65; RESP 18; TEMP 36.2; O2SAT 97
--- NOTE | 2023-02-27 07:27 | PM.PNORT ---
Subjective Subjective Date of Service: 02/27/23 Principal diagnosis: s/p right hip IMN Interval history: No overnight events Feels well Dispo pending Physical Exam Vital Signs: Vital Signs: Last Vital Signs Temp 97.2 F 02/27/23 07:25 Pulse 65 02/27/23 07:25 Resp 18 02/27/23 07:25 BP 110/62 02/27/23 07:25 Pulse Ox 97 02/27/23 07:25 O2 Del Method Room Air 02/27/23 07:25 O2 Flow Rate 1 02/21/23 14:59 BMI result Body Mass Index 30.4 Extrem: Other: Sitting at edge of bed comfortably Dull pain with hip flexion Dressing c/d/i with surrounding eccymosis Procedures Date of Service Date of Service: 02/27/23 Progress Note: A&P Assessment and plan (1) Femur fracture: Status: Acute Assessment and Plan: dispo pending po pain control and methadone as outpatient will change dressing this am TTWB RLE f/u clinic scheduled for next sunday mark [facility]irez Time Spent With Patient Time: Total time managing care of this patient today ____ minutes. Quality Stroke Does the patient have a stroke diagnosis?: No VTE Prior VTE?: No VTE Risk Level:: Medical - moderate - high VTE Device Contraindication: N/A - Device Ordered VTE Drug Contraindication: N/A - Med Ordered
[2023-02-27] MEDS: busPIRone HCl 10 MG TABLET 30 MG PO ×3 (08:06→20:53)
[2023-02-27] MEDS: Celecoxib 200 MG CAPSULE PO ×2 (08:06→20:53)
[2023-02-27] MEDS: methADONE HCl 20 MG/2 ML ORAL.CONC 75 MG PO (08:06)
[2023-02-27] MEDS: Docusate Sodium 100 MG CAPSULE PO ×2 (08:06→22:43)
[2023-02-27] MEDS: Cholecalciferol (Vitamin D3) 25 MCG TABLET PO (08:07)
[2023-02-27] MEDS: Escitalopram Oxalate 20 MG TABLET PO (08:07)
[2023-02-27 10:45] VITALS: BP 110/62; PULSE 65; O2SAT 97
[2023-02-27] MEDS: clonazePAM 0.5 MG TABLET PO (10:48)
[2023-02-27] MEDS: Enoxaparin Sodium 40 MG/0.4 ML SYRINGE SUBCUT (11:45)
[2023-02-27] MEDS: Acetaminophen 325 MG TABLET 650 MG PO (11:48)
[2023-02-27 15:14] VITALS: BP 118/67; PULSE 62; RESP 18; TEMP 36; O2SAT 97
--- NOTE | 2023-02-27 15:20 | MHC.CM.PN ---
PASSR 1 FAXED TO [facility] @ [phone] AND UPLOADED INTO [employer]. AWAITING DETERMINATION
--- NOTE | 2023-02-27 15:52 | MHC.CM.PN ---
PATIENT AWARE THAT [facility] IS OFFERING A BED FOR TOMORROW AFTERNOON.
[2023-02-27 19:24] VITALS: BP 115/69; PULSE 73; RESP 18; TEMP 36.3; O2SAT 96
[2023-02-27] MEDS: traZODone HCL 50 MG TABLET PO (22:42)
[2023-02-28 03:55] VITALS: BP 114/61; PULSE 56; RESP 16; TEMP 36.5; O2SAT 96
[2023-02-28] MEDS: oxyCODONE HCl Immed Release 5 MG TABLET 10 MG PO ×2 (06:07→10:38)
[2023-02-28 07:44] VITALS: BP 118/76; PULSE 64; RESP 16; TEMP 36.3; O2SAT 98
[2023-02-28] MEDS: methADONE HCl 20 MG/2 ML ORAL.CONC 75 MG PO (08:58)
[2023-02-28] MEDS: Celecoxib 200 MG CAPSULE PO (09:00)
[2023-02-28] MEDS: busPIRone HCl 10 MG TABLET 30 MG PO (09:00)
[2023-02-28] MEDS: Cholecalciferol (Vitamin D3) 25 MCG TABLET PO (09:00)
[2023-02-28] MEDS: Escitalopram Oxalate 20 MG TABLET PO (09:00)
[2023-02-28] MEDS: Docusate Sodium 100 MG CAPSULE PO (09:00)
[2023-02-28] MEDS: Acetaminophen 325 MG TABLET 650 MG PO (10:38)
--- NOTE | 2023-02-28 10:54 | MHC.CM.PN ---
PATIENT IS DC TO [facility] (PER CONVERSATION WITH SHAQUILLE [phone]) 11:00 DC PLANNED PER YUE GREWAL RN AND PATIENT AWARE LAST DOSE LETTER FAXED INTO [facility]
== END 2023-02-28 11:54 | disposition skilled nursing facility (03) | DRG 481 ==
LOC: HO.SSSA 10:52 → HO.S3 12:16
PROVIDERS: Nurse Practitioner; Physician Assistant; Admitting Provider Orthopaedic Surgery; PCP Internal Medicine; Visit Provider Orthopaedic Surgery
PROC: 0QS636Z Reposition Right Upper Femur with Intramedullary Internal Fixation Device, Percutaneous Approach (ICD-10-PCS; principal; 2023-02-21 10:20)
PROC: 0QS636Z Reposition Right Upper Femur with Intramedullary Internal Fixation Device, Percutaneous Approach (ICD-10-PCS; 2023-02-21 10:20)
DX: S72.001A Fracture of unspecified part of neck of right femur, initial encounter for closed fracture (principal); F11.20 Opioid dependence, uncomplicated; F41.0 Panic disorder [episodic paroxysmal anxiety]; K59.00 Constipation, unspecified; G47.00 Insomnia, unspecified; X58.XXXA Exposure to other specified factors, initial encounter; F41.9 Anxiety disorder, unspecified; F32.A Depression, unspecified; Z79.899 Other long term (current) drug therapy
CPT/HCPCS: 36415; 80048; 80307; 81025; 85025; 97110; 97116; 97162; 97166; 97530; 97535; C1713; C1769; J0131; J0690; J1170; J1650; J1885; J2550; J2795; J3010

== ENCOUNTER 2023-03-05 08:34 | Outpatient (REF) | payer OTHER, MEDICARE, MEDICAID, SELFPAY ==
--- NOTE | ~2023-03-05 | XR_ITS ---
EXAMINATION: XR PELVIS CLINICAL INFORMATION: Hip pain COMPARISON: Pelvic radiographs 02/08/2023, 01/18/2023 TECHNIQUE: AP x2 views of the pelvis. FINDINGS: Normal bony mineralization. Degenerative changes lumbosacral junction. The SI joints and pubis are unremarkable. No acute fracture or dislocation or destructive process. Iliac crests not completely within [id number]. There are mild degenerative changes left hip similar to prior studies. Postsurgical changes on the right again seen with intramedullary nasima, gamma nail, and proximal inter locking screw. Hardware is intact. Fracture is still visible. No osteolysis or destructive process. There is interval mineralization adjacent to greater trochanter likely involving the gluteus medius insertion. XR/XR pelvis 1-2V IMPRESSION: - Degenerative changes lumbosacral junction. - Mild degenerative changes left hip. - Postsurgical changes right hip. Hardware intact. No fracture or destructive process. - Interval mineralization adjacent to right greater trochanter likely involving the gluteus medius insertion.
== END 2023-03-05 08:35 | disposition home or self-care (01) ==
LOC: HO.HOSX 08:34
PROVIDERS: Visit Provider Orthopaedic Surgery
DX: Z87.81 Personal history of (healed) traumatic fracture (principal)
CPT/HCPCS: 72170; 99212

== ENCOUNTER 2023-04-02 10:57 | Outpatient (REF) | payer OTHER, MEDICARE, MEDICAID, SELFPAY ==
--- NOTE | ~2023-04-02 | XR_ITS ---
EXAMINATION: XR AP PELVIS XR FEMUR, RIGHT CLINICAL INFORMATION: Healed traumatic fracture COMPARISON: 03/05/2023 and studies dating back to 12/29/2022 TECHNIQUE: AP film of the pelvis and AP and lateral views of the right femur FINDINGS: PELVIS: AP film of the pelvis does not demonstrate any evidence of acute fracture or diastases. Hip joint spaces are maintained. Sacroiliac joints appear unremarkable. There is facet arthropathy at the L5-S1 level bilaterally. RIGHT FEMUR: Views of the right femur demonstrate patient to be status post compression screw and long intramedullary nasima fixation of a basicervical proximal right femoral neck fracture. There is osteopenia visualized bones. Hardware appears intact. No evidence of hardware loosening since previous screw placement of 02/21/2023. Fracture line is still evident. Soft tissue calcification lateral to the proximal femur again seen. Some soft tissue calcification is also seen about the greater trochanter. No knee effusion is present. XR/XR femur RT 2V IMPRESSION: 1. Bilateral facet arthropathy L5-S1. 2. No significant change in appearance of compression screws and intramedullary nasima within the right femur compared to prior study of 03/05/2023.
--- NOTE | ~2023-04-02 | XR_ITS ---
EXAMINATION: XR AP PELVIS XR FEMUR, RIGHT CLINICAL INFORMATION: Healed traumatic fracture COMPARISON: 03/05/2023 and studies dating back to 12/29/2022 TECHNIQUE: AP film of the pelvis and AP and lateral views of the right femur FINDINGS: PELVIS: AP film of the pelvis does not demonstrate any evidence of acute fracture or diastases. Hip joint spaces are maintained. Sacroiliac joints appear unremarkable. There is facet arthropathy at the L5-S1 level bilaterally. RIGHT FEMUR: Views of the right femur demonstrate patient to be status post compression screw and long intramedullary nasima fixation of a basicervical proximal right femoral neck fracture. There is osteopenia visualized bones. Hardware appears intact. No evidence of hardware loosening since previous screw placement of 02/21/2023. Fracture line is still evident. Soft tissue calcification lateral to the proximal femur again seen. Some soft tissue calcification is also seen about the greater trochanter. No knee effusion is present. XR/XR pelvis 1-2V IMPRESSION: 1. Bilateral facet arthropathy L5-S1. 2. No significant change in appearance of compression screws and intramedullary nasima within the right femur compared to prior study of 03/05/2023.
== END 2023-04-02 10:58 | disposition home or self-care (01) ==
LOC: HO.HOSX 10:57
PROVIDERS: Visit Provider Orthopaedic Surgery
DX: M25.551 Pain in right hip (principal); Z87.81 Personal history of (healed) traumatic fracture
CPT/HCPCS: 72170; 73552; 99212

== ENCOUNTER 2023-04-13 10:24 | Outpatient (REF) | payer OTHER, MEDICARE, MEDICAID, SELFPAY | END 2023-04-13 10:25 | disposition home or self-care (01) | LOC: HO.HOSX 10:24 | PROVIDERS: PCP Internal Medicine; Visit Provider Orthopaedic Surgery | DX: M25.551 Pain in right hip (principal); M25.561 Pain in right knee; M25.562 Pain in left knee; Z87.81 Personal history of (healed) traumatic fracture | CPT/HCPCS: 73501; 73565 ==

== ENCOUNTER 2023-04-18 09:05 | Outpatient (REF) | payer MEDICARE, MEDICAID, SELFPAY | END 2023-04-18 09:06 | disposition home or self-care (01) | LOC: HO.CT 09:05 | PROVIDERS: PCP Internal Medicine; Visit Provider Orthopaedic Surgery | DX: Z87.81 Personal history of (healed) traumatic fracture (principal) | CPT/HCPCS: 73700 ==

== ENCOUNTER 2023-04-19 10:10 | Outpatient (AMB) | payer MEDICARE, MEDICAID, SELFPAY ==
--- NOTE | 2023-04-19 10:12 | A.OFFVIS_ITS ---
Intake Intake Visit Reasons: Postop-ORIF RT femur, 02/21/23NE Intake Note: Christine is a 32 year old female who presents today for a post operative appointment s/p Right Femur ORIF 02/21/23. CT scan was done on 04/18/23. Patient reports that she is having continued pain. She is concerned about being discharged today.. Allergies tramadol [Ultram] Allergy (Unknown, Verified 04/19/23 10:13) rash acetaminophen [From TYLENOL] Adverse Reaction (Unknown, Verified 04/19/23 10:13) STOMACH UPSET HPI Postop-ORIF RT femur, 02/21/23NE HPI Details Christine is a 32 year old woman who presents ~2 months S/P right femoral IM nail. She is here for a CT scan review. She complains of a burning sensation about her incision, and she feels unstable when walking. She says she feels her hip slides out of place as she walks.?? [facility] Medical History Asthma Bipolar 1 disorder Depression with anxiety Hepatitis C Hepatitis C antibody test positive Hx of hepatitis C Numbness and tingling of both upper extremities Numerous moles Polysubstance abuse Skin lesion of left arm Suicide attempt Surgical History History of hip surgery (12/30/22) History of hip surgery (~02/27/23) No pertinent past surgical history Family History Father Sleep apnea Diabetes mellitus Diabetic neuropathy Mother Multiple sclerosis Colitis Fibromyalgia Maternal Grandfather CVD (cardiovascular disease) Kidney disease Heart disease Maternal Grandmother Lupus Arthritis Rheumatoid arthritis Paternal Grandfather No problems noted. Paternal Grandmother No problems noted. Brother No problems noted. Sister No problems noted. Son No problems noted. Son No problems noted. Social History Household Members: Family Household Members Other:: RENTS A ROOM Housing: Apartment Housing Other:: 2nd floor duplex Do you presently have visiting nurse or other home services: Yes Alcohol intake: former Patient Tobacco Use Status: Former Tobacco user Tobacco use type: Cigarette Cigarette Packs Per Day: 0.5 Cigarettes Per Day: 10 e-Cigarette/Vaping Use: Never Used Second Hand Smoke Exposure: No Substance Use Type: Marijuana service: No Current occupational status: unemployed and disabled Review of Systems Const All systems reviewed & are unremarkable except as noted in HPI and below Physical Exam Const General: no acute distress and alert Orientation/consciousness: patient oriented x3 Neuro General: patient oriented x3 Extrem Other: Right Leg: Incision C/D/I Sharp pain with deep impingement testing Psych Appearance: grossly normal Affect: normal affect Attitude: cooperative Results Reviewed Results Reviewed: I personally reviewed relevant CT images Assessment & Plan Assessment & Plan (1) History of femur fracture: Code(s): Z87.81 - Personal history of (healed) traumatic fracture Plan: This is a 32 year old woman S/P right femoral IM nail, DOS: 02/21/23. Her fracture is not healing and alignement has shifted. Her pain has increased since her last appointment. Her CT scan reveals penetration of the hip screw. She does need to have this revised. Becasee of her age and the failure of now two interventions I think she would benefit from seeing a Traumatologist. I will work to arrange this. Plan Scribed for Isidro Lynch MD by Adam Foley, medical device assembler, on 04/19/23 at 1:10 PM, EST. Coding Level of Care Code Global (26412) Diagnoses History of femur fracture Z87.81
== END 2023-04-19 10:43 | disposition home or self-care (01) ==
PROVIDERS: PCP Internal Medicine; Visit Provider Orthopaedic Surgery
DX: Z87.81 Personal history of (healed) traumatic fracture (principal)
CPT/HCPCS: 99024

== ENCOUNTER → 2023-04-19 10:10 | Outpatient (BNVA) | payer MEDICARE, MEDICAID, SELFPAY | PROVIDERS: PCP Internal Medicine; Visit Provider Orthopaedic Surgery | DX: S72.91XK Unspecified fracture of right femur, subsequent encounter for closed fracture with nonunion (principal) | CPT/HCPCS: 99212 ==

== ENCOUNTER 2023-05-16 15:32 | Outpatient (REF) | payer MEDICARE, MEDICAID, SELFPAY | END 2023-05-16 15:33 | disposition home or self-care (01) | LOC: HO.HOSX 15:32 | PROVIDERS: Visit Provider Orthopaedic Surgery | DX: Z13.89 Encounter for screening for other disorder (principal) ==

== ENCOUNTER 2023-05-17 07:44 | Outpatient (REF) | payer MEDICARE, MEDICAID, SELFPAY ==
--- NOTE | ~2023-05-17 | XR_ITS ---
EXAMINATION: XR PELVIS CLINICAL INFORMATION: Pain of hip. COMPARISON: CT of right hip from 04/18/2023. Prior radiographs from 01/18/2023 and 04/13/2023. TECHNIQUE: AP view of the pelvis. FINDINGS: Again noted is the antegrade right femoral fixation nail and femoral neck screws in stable position compared to 04/18/2023. The tip of the dynamic screw is projecting over the articular cortex of the superior femoral head. This corresponds to the migrated position of the screw seen on the CT images of 04/18/2023. There is no visible osseous bridging at the intertrochanteric fracture with persistent femoral varus deformity. No new fractures. There is unchanged appearance of mild narrowing of the superolateral joint space of the right hip. The left hip joint space is maintained. XR/XR pelvis 1-2V IMPRESSION: * No new abnormalities compared to 04/18/2023. * There is no visible osseous union of the proximal right femoral fracture with femoral varus deformity. * The tip of the dynamic neck screw projects over the articular cortex of the superior femoral head. This screw position is unchanged compared to 04/18/2023.
== END 2023-05-17 07:45 | disposition home or self-care (01) ==
LOC: HO.HOSX 07:44
PROVIDERS: Visit Provider Orthopaedic Surgery
DX: Z47.89 Encounter for other orthopedic aftercare (principal); S72.001D Fracture of unspecified part of neck of right femur, subsequent encounter for closed fracture with routine healing
CPT/HCPCS: 72170

== ENCOUNTER 2023-05-17 08:37 | Outpatient (AMB) | payer MEDICARE, MEDICAID, SELFPAY ==
--- NOTE | 2023-05-17 08:50 | A.OFFVIS_ITS ---
Intake Intake Visit Reasons: Postop-F/U ORIF RT femur, 02/21/23NE Intake Note: Christine is a 32 year old female who presents today for a post operative appointment s/p ORIF Right Femur 02/21/23. She is being transferred to [facility] in [place] 06/25/23, and is currently residing at [facility] as she is unsafe to return home. Patient states that she is doing about the same, she explains an intense burning sensation in the groin area,she also has flair ups of pain in the knee. Allergies tramadol [Ultram] Allergy (Unknown, Verified 04/19/23 10:13) rash acetaminophen [From TYLENOL] Adverse Reaction (Unknown, Verified 04/19/23 10:13) STOMACH UPSET HPI Postop-F/U ORIF RT femur, 02/21/23NE HPI Details Christine is a 32 year old woman who presents ~3 months S/P right femoral IM nail. She is currently residing in [facility], and is scheduled to be transferred to a tertiary care center in [place] on 06/25/23. She complains of a burning sensation in her groin, worse from prior, and she feels unstable when walking. She says she feels her hip slides out of place as she walks, and she has some flare-ups of knee pain. [facility] Medical History Asthma Bipolar 1 disorder Depression with anxiety Hepatitis C Hepatitis C antibody test positive Hx of hepatitis C Numbness and tingling of both upper extremities Numerous moles Polysubstance abuse Skin lesion of left arm Suicide attempt Surgical History History of hip surgery (12/30/22) History of hip surgery (~02/27/23) No pertinent past surgical history Family History Father Sleep apnea Diabetes mellitus Diabetic neuropathy Mother Multiple sclerosis Colitis Fibromyalgia Maternal Grandfather CVD (cardiovascular disease) Kidney disease Heart disease Maternal Grandmother Lupus Arthritis Rheumatoid arthritis Paternal Grandfather No problems noted. Paternal Grandmother No problems noted. Brother No problems noted. Sister No problems noted. Son No problems noted. Son No problems noted. Social History Household Members: Family Household Members Other:: RENTS A ROOM Housing: Apartment Housing Other:: 2nd floor duplex Do you presently have visiting nurse or other home services: Yes Alcohol intake: former Patient Tobacco Use Status: Former Tobacco user Tobacco use type: Cigarette Cigarette Packs Per Day: 0.5 Cigarettes Per Day: 10 e-Cigarette/Vaping Use: Never Used Second Hand Smoke Exposure: No Substance Use Type: Marijuana service: No Current occupational status: unemployed and disabled Review of Systems Const All systems reviewed & are unremarkable except as noted in HPI and below Physical Exam Const General: no acute distress and alert Orientation/consciousness: patient oriented x3 Neuro General: patient oriented x3 Extrem Other: Right Leg: Mild pain with IR and ER of the hip, not severe Psych Appearance: grossly normal Affect: normal affect Attitude: cooperative Results Reviewed Results Reviewed: I personally reviewed CT scan images 1. No appreciable osseous bridging at the intertrochanteric/basicervical fracture of the right proximal femur status post ORIF. There is cut out at the right hip with cephalad migration of the dynamic hip screw within the femoral head and slightly increased varus angulation. ? 2. Mild osteoarthritis in the right hip and right SI join I personally reviewed relevant radiographs. Continues to show screw cut-out and failure of fixation of right hip nail for femoral neck fracture Assessment & Plan Assessment & Plan (1) History of femur fracture: Code(s): Z87.81 - Personal history of (healed) traumatic fracture Plan: This is a 32 year old woman S/P right femoral IM nail, DOS: 02/21/23. Her fracture is not healing and there is screw cutout. She is not weight bearing. Her CT scan reveals penetration of the hip screw. She does need to have this revised. She is scheduled to be transferred to a Tertiary care center in [place] on 06/25/23, scheduled from 05/28/23 due to difficulties with transportation from her rehab center. I will try to move this up as she should be treated sooner. She understands this and we will be in [facility]. Continue NWB Plan Scribed for Isidro Lynch MD by Adam Foley, anesthesiology medical doctor, on 05/17/23 at 9:15 AM, EST. Orders: Orders XR pelvis 1-2V Today M25.559 - Pain in unspecified hip Coding Level of Care Code Est Pt Level 4 (55864) Global (37181) Diagnoses History of femur fracture Z87.81
== END 2023-05-17 09:35 | disposition home or self-care (01) ==
PROVIDERS: PCP Internal Medicine; Visit Provider Orthopaedic Surgery
DX: S72.001A Fracture of unspecified part of neck of right femur, initial encounter for closed fracture (principal)
CPT/HCPCS: 99024

== ENCOUNTER 2023-07-27 14:16 | Outpatient (REF) | payer MEDICARE, MEDICAID, SELFPAY ==
--- NOTE | ~2023-07-27 | CT_ITS ---
EXAMINATION: CT HIP WITHOUT CONTRAST, RIGHT CLINICAL INFORMATION: Personal history of traumatic fracture. COMPARISON: CT 04/18/2023. X-ray 05/17/2023. TECHNIQUE: Multidetector volumetric imaging was obtained through the right hip without contrast material. Multiplanar reformatted images were submitted in coronal and sagittal planes. This CT examination was performed using dose optimization techniques as appropriate, variously including the following: *Automated exposure control *Adjustment of mA and/or kV according to patient size (this includes techniques or standardized protocols for targeted exams where dose is matched to indication/reason for exam; i.e. extremities or head) *Use of iterative reconstruction technique DLP: 811 mGy-cm FINDINGS: Status postsurgical fixation of the intertrochanteric/basicervical fracture of the right proximal femur with an intramedullary nail, dynamic hip screw and additional partially threaded screw. No evidence of hardware fracture. Similar varus angulation at the fracture site. Redemonstrated is lucency around the dynamic screw, which appears similar or minimally more prominent as compared to previous. Again seen is anterior/superior protrusion of the tip of the screw through the articular cortex, with degree of protrusion appearing slightly more prominent as compared to previous, with the tip of the screw extending adjacent to/abutting the acetabulum. Metallic artifact from the hardware limits evaluation of the fracture site. No significant osseous bridging is appreciated in the intertrochanteric portion of the fracture plane. The basicervical portion of the fracture plane is partially obscured by artifact, but the visualized portions of the fracture plane appearing visible, without significant osseous bridging appreciated. Redemonstrated is arthritis in the right hip joint, with joint space narrowing laterally, small marginal osteophytes. Mild symphysis pubis degeneration. Mild right SI joint arthritis. Metallic artifact limits evaluation of the surrounding soft tissue and joint space. In the nonobscured muscles, no significant abnormality is identified. No groin lymphadenopathy. CT/CT hip RT wo IV con IMPRESSION: 1. Status postsurgical fixation of the proximal right femoral fracture, with stable fracture position and alignment. No hardware fracture. Redemonstrated is cephalad migration of the tip of the dynamic hip screw through the articular surface, with the degree of protrusion appearing slightly more prominent as compared to previous. No significant osseous bridging is identified at the intertrochanteric and basicervical fracture of the proximal right femur. 2. 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 3. Additional findings and details as above.
== END 2023-07-27 14:17 | disposition home or self-care (01) ==
LOC: HO.CT 14:16
PROVIDERS: PCP Internal Medicine; Visit Provider Orthopaedic Surgery
DX: Z87.81 Personal history of (healed) traumatic fracture (principal); M89.8X5 Other specified disorders of bone, thigh
CPT/HCPCS: 73700

== ENCOUNTER 2023-08-20 08:24 | Outpatient (AMB) | payer MEDICARE, MEDICAID, SELFPAY ==
--- NOTE | 2023-08-20 08:33 | MHC.OFFVIS ---
Intake Intake Visit Reasons: OV-F/U ORIF RT femur-02/21/23NE Intake Note: Christine is a 33 year old female who presents today for a CT scan review of the left leg. She is s/p ORIF RT femur-02/21/23. She was to be seen in [place] for revision of the right leg. Patient reports that the leg has progerssivly getting worse. She was seen for one appt on 06/25. Salma was given a discharge date on 09/06/23 and she is not able to go home. Salma continues to cancel her appointments in [place] as they are having transportation issues. Allergies tramadol [Ultram] Allergy (Unknown, Verified 08/20/23 08:35) rash acetaminophen [From TYLENOL] Adverse Reaction (Unknown, Verified 04/19/23 10:13) STOMACH UPSET HPI OV-F/U ORIF RT femur-02/21/23NE HPI Dinah toussaint continues to wait for an appointment in [place]. She saw them once but they were waiting for the CT and him not decided on what surgery she will get. She is in a wheelchair at rehab center. She has an appointment with Dr. Sanchez on 09/03 [facility] Medical History Asthma Bipolar 1 disorder Depression with anxiety Hepatitis C Hepatitis C antibody test positive Hx of hepatitis C Numbness and tingling of both upper extremities Numerous moles Polysubstance abuse Skin lesion of left arm Suicide attempt Surgical History History of hip surgery (12/30/22) History of hip surgery (~02/27/23) No pertinent past surgical history Family History Father Sleep apnea Diabetes mellitus Diabetic neuropathy Mother Multiple sclerosis Colitis Fibromyalgia Maternal Grandfather CVD (cardiovascular disease) Kidney disease Heart disease Maternal Grandmother Lupus Arthritis Rheumatoid arthritis Paternal Grandfather No problems noted. Paternal Grandmother No problems noted. Brother No problems noted. Sister No problems noted. Son No problems noted. Son No problems noted. Social History Household Members: Family Household Members Other:: RENTS A ROOM Housing: Apartment Housing Other:: 2nd floor duplex Do you presently have visiting nurse or other home services: Yes Alcohol intake: former Patient Tobacco Use Status: Former Tobacco user Tobacco use type: Cigarette Cigarette Packs Per Day: 0.5 Cigarettes Per Day: 10 e-Cigarette/Vaping Use: Never Used Second Hand Smoke Exposure: No Substance Use Type: Marijuana service: No Current occupational status: unemployed and disabled Review of Systems Const All systems reviewed & are unremarkable except as noted in HPI and below Physical Exam Const General: no acute distress, alert and awake Orientation/consciousness: patient oriented x3 HEENT Head: Yes normocephalic and Yes atraumatic Eyes EOM: EOMs intact bilaterally Resp Effort & Inspection: normal respiratory effort and able to speak in complete sentences Cardio Jugular venous distension: no JVD Skin General skin exam: turgor normal Rashes: no rashes Neuro General: patient oriented x3 Extrem Other: Right Leg: No [id number] tolerable. Psych Appearance: grossly normal Affect: normal affect Attitude: cooperative Results Reviewed Results Reviewed: I personally reviewed CT scan images screw cut-out and failure of fixation of right femoral neck fracture Assessment & Plan Assessment & Plan (1) History of femur fracture: Code(s): Z87.81 - Personal history of (healed) traumatic fracture Plan: She needs to continue to be nonweightbearing. She will follow-up in a few weeks for surgery on her right hip. Coding Level of Care Code Est Pt Level 3 (95071) Diagnoses History of femur fracture Z87.81
== END 2023-08-20 09:39 | disposition home or self-care (01) ==
PROVIDERS: PCP Internal Medicine; Visit Provider Orthopaedic Surgery
DX: S72.91XD Unspecified fracture of right femur, subsequent encounter for closed fracture with routine healing (principal); Z87.81 Personal history of (healed) traumatic fracture
CPT/HCPCS: 99213

== ENCOUNTER → 2023-08-20 08:24 | Outpatient (BNVA) | payer MEDICARE, MEDICAID, SELFPAY | PROVIDERS: PCP Internal Medicine; Visit Provider Orthopaedic Surgery | DX: Z87.81 Personal history of (healed) traumatic fracture (principal) | CPT/HCPCS: 99212 ==

== ENCOUNTER 2023-09-13 11:23 | Outpatient (AMB) | payer MEDICARE, MEDICAID, SELFPAY ==
--- NOTE | 2023-09-13 12:02 | MHC.OFFVIS ---
Intake Intake Visit Reasons: RT WILLIE 09/18/23 Intake Note: Christine is a 33 year old female who presents today for a follow up of her right hip. She is booked for Right WILLIE 09/18/23 Allergies tramadol [Ultram] Allergy (Intermediate, Verified 09/13/23 10:54) rash acetaminophen [From TYLENOL] Adverse Reaction (Mild, Verified 09/13/23 10:54) STOMACH UPSET HPI RT WILLIE 09/18/23 HPI Details Christine is a 33 year old woman who presents ~6 months S/P right femoral IM nail. She complains of a pain in her groin, worse from prior, and she feels unstable when walking. She says she feels her hip slides out of place as she walks, and she has some flare-ups of knee pain. She is scheduled for a right WILLIE on 09/18/23. [facility] Medical History (Updated 09/14/23 @ 09:11 by Caitlyn Guzman RN) [facility] Hepatitis C Depression with anxiety Asthma Hepatitis C antibody test positive Hx of hepatitis C Skin lesion of left arm Numerous moles Numbness and tingling of both upper extremities Suicide attempt Polysubstance abuse Bipolar 1 disorder Surgical History (Updated 09/14/23 @ 09:32 by Caitlyn Guzman RN) History of hip surgery (~02/27/23) History of hip surgery (12/30/22) Family History Father Sleep apnea Diabetes mellitus Diabetic neuropathy Mother Multiple sclerosis Colitis Fibromyalgia Maternal Grandfather CVD (cardiovascular disease) Kidney disease Heart disease Maternal Grandmother Lupus Arthritis Rheumatoid arthritis Paternal Grandfather No problems noted. Paternal Grandmother No problems noted. Brother No problems noted. Sister No problems noted. Son No problems noted. Son No problems noted. Social History Household Members: Family Household Members Other:: currently in SNF for rehab-[facility] Housing: Apartment Housing Other:: 2nd floor duplex Are you a primary career technical education teacher to a significant other at home: No Do you presently have visiting nurse or other home services: No Alcohol intake: former Comment: wheelchair due to prior hip surgeries Patient Tobacco Use Status: Current everyday Tobacco user Tobacco use type: Cigarette Cigarette Packs Per Day: 0.5 Cigarettes Per Day: 6 Years Smoked: 15 e-Cigarette/Vaping Use: Never Used Second Hand Smoke Exposure: No Substance Use Type: Marijuana Advance Directives Date on File: 02/22/23 service: No Current occupational status: unemployed and disabled Review of Systems Const All systems reviewed & are unremarkable except as noted in HPI and below Physical Exam Const General: no acute distress, alert and awake Orientation/consciousness: patient oriented x3 HEENT Head: Yes normocephalic and Yes atraumatic Eyes EOM: EOMs intact bilaterally Resp Effort & Inspection: normal respiratory effort and able to speak in complete sentences Cardio Jugular venous distension: no JVD Skin General skin exam: turgor normal Rashes: no rashes Neuro General: patient oriented x3 Extrem Other: Right Leg: No [id number] tolerable. Psych Appearance: grossly normal Affect: normal affect Attitude: cooperative Results Reviewed Results Reviewed: I personally reviewed CT scan images screw cut-out and failure of fixation of right femoral neck fracture Assessment & Plan Assessment & Plan (1) History of femur fracture: Code(s): Z87.81 - Personal history of (healed) traumatic fracture Plan: This is a 33 year old woman S/P right femoral IM nail, DOS: 02/21/23. Her fracture is not healing and there is screw cutout. She is not weight bearing. Her CT scan reveals penetration of the hip screw. SHe was seen for a second opinion but they felt there was no further options for repair and that WILLIE was indicated. I agree even though her age is young this is NOT healing. It has been 8 months and there is screw cutout and likely this is not going to heal. I discussed arthroplasty with her and she is desperate to walk again. SHe does not want to attempt repair and I think this will be low yyield. I explained the risk of infection and aseptic loosening and limited weight bearing after WILLIE if the trochanter is not stable. I also discussed the risks benefits and alternatives including but not limited to the risk of pain, stiffness, need for further surgery as well as potential medical complications such as blood clots, pulmonary embolism and cardiac complications. Orders: Orders Erythrocyte Sedimentation Rate Today Z87.81 - Personal history of (healed) traumatic fracture C Reactive Protein Today Z87.81 - Personal history of (healed) traumatic fracture Coding Level of Care Code Est Pt Level 4 (73183) Diagnoses History of femur fracture Z87.81
== END 2023-09-13 12:31 | disposition home or self-care (01) ==
PROVIDERS: PCP Internal Medicine; Visit Provider Orthopaedic Surgery
DX: T84.84XA Pain due to internal orthopedic prosthetic devices, implants and grafts, initial encounter (principal)
CPT/HCPCS: 99214

== ENCOUNTER → 2023-09-13 11:23 | Outpatient (BNVA) | payer MEDICARE, MEDICAID, SELFPAY | PROVIDERS: PCP Internal Medicine; Visit Provider Orthopaedic Surgery | DX: Z01.810 Encounter for preprocedural cardiovascular examination (principal); Z87.81 Personal history of (healed) traumatic fracture | CPT/HCPCS: 99212 ==

== ENCOUNTER → 2023-09-13 12:21 | Outpatient (BNV) | payer MEDICARE, MEDICAID, SELFPAY | PROVIDERS: Admitting Provider Orthopaedic Surgery; PCP Internal Medicine; Visit Provider Internal Medicine Cardiovascular Disease | DX: R94.31 Abnormal electrocardiogram [ECG] [EKG] (principal) | CPT/HCPCS: 93010 ==

== ENCOUNTER 2023-09-18 09:24 | Inpatient (IN) | payer MEDICARE, MEDICAID, SELFPAY ==
--- NOTE | 2023-09-13 12:21 | ECG_ITS ---
Test Reason : PREOP Blood Pressure : / mmHG Vent. Rate : 083 BPM Atrial Rate : 083 BPM P-R Int : 144 ms QRS Dur : 082 ms QT Int : 376 ms P-R-T Axes : 044 000 018 degrees QTc Int : 441 ms Normal sinus rhythm with sinus arrhythmia Nonspecific T wave abnormality Abnormal ECG When compared with ECG of 09-OCT-2014 07:37, ST no longer elevated in Anterior leads Nonspecific T wave abnormality now evident in Anterolateral leads Referred By: Isidro Lynch Electronically Signed By:THANH SUNSHINE MD
[2023-09-13 12:37] LABS: MANUAL DIFF FLAG NO
[2023-09-13 13:04] LABS: Basophils Absolute Auto 0.1 X10*3/uL (0.0-0.2); Basophils Percent Auto 1.1 % (0-2); Eosinophils Absolute Auto 0.3 X10*3/uL (0.0-0.4); Eosinophils Percent Auto 3.9 % (0-4); Hematocrit 40.6 % (37.0-47.0); Hemoglobin 12.9 g/dl (12.0-16.0); Imm Gran Abs Auto 0.02 X10*3/uL (0.00-0.03); Imm Gran Pct Auto 0.3 % (0.0-0.4); Lymphocytes Absolute Auto 2.3 X10*3/uL (1.2-4.9); Lymphocytes Percent Auto 34.5 % (20-40); Mean Corpuscular HGB Conc 31.8 g/dl (31.0-35.0); Mean Corpuscular Hemoglobin 28.4 pg (27.0-33.0); Mean Corpuscular Volume 89.2 fL (80.0-98.0); Mean Platelet Volume 10.5 fL (9.4-12.3); Monocytes Absolute Auto 0.5 X10*3/uL (0.1-1.2); Monocytes Percent Auto 6.8 % (2-11); Neutrophils Absolute Auto 3.5 x10*3/uL (2.0-8.3); Neutrophils Percent Auto 53.4 % (45-73); Platelet Count 257 X10*3/uL (160-400); Red Blood Count 4.55 X10*6/uL (4.20-5.50); Red Cell Distribution Width 13.3 % (11.0-16.0); White Blood Count 6.6 X10*3/uL (4.8-10.8)
[2023-09-13 14:06] LABS: Anion Gap 11 (12-20); Blood Urea Nitrogen 17 mg/dL (9-16); Calcium 9.5 mg/dL (8.4-10.2); Carbon Dioxide 29 mmol/L (22-29); Chloride 98 mmol/L (96-108); Estimated Glomerular Filt Rate > 60; Glucose Random 90 mg/dL (60-115); Sodium 134 mmol/L (135-145)
[2023-09-14 09:22] VITALS: BMI 41.5
--- NOTE | 2023-09-17 09:59 | HO.ANESPROP2 ---
Documented by User: Chelsi Sousa NP 09/17/23 10:01 HPI - Anesthesia Eval Consult details Narrative: 33yo F for Right Hip Total Replacement Medically optimized s/p R femoral IM nailing 02/2023 with GA-ETT 7 Methadone daily PMFSH Active Problems Active Problems: All Active Problems (Updated 09/14/23 @ 09:11 by Caitlyn Guzman RN) History of femur fracture (Acute) Smoker (Acute) Femur fracture (Acute) Shortness of breath (Acute) Hepatitis C antibody test positive (Acute) Hx of hepatitis C (Acute) Skin lesion of left arm (Acute) Numerous moles (Acute) Numbness and tingling of both upper extremities (Acute) Polysubstance abuse (Acute) Bipolar 1 disorder (Acute) Past Medical History Medical History (Updated 09/14/23 @ 09:11 by Caitlyn Guzman RN) Resides in nursing home facility Hepatitis C Depression with anxiety Asthma Hepatitis C antibody test positive Hx of hepatitis C Skin lesion of left arm Numerous moles Numbness and tingling of both upper extremities Suicide attempt Polysubstance abuse Bipolar 1 disorder Family History Family History Father Sleep apnea Diabetes mellitus Diabetic neuropathy Mother Multiple sclerosis Colitis Fibromyalgia Maternal Grandfather CVD (cardiovascular disease) Kidney disease Heart disease Maternal Grandmother Lupus Arthritis Rheumatoid arthritis Paternal Grandfather No problems noted. Paternal Grandmother No problems noted. Brother No problems noted. Sister No problems noted. Son No problems noted. Son No problems noted. Family history of problems with anesthesia: No Surgical History Surgical History (Updated 09/14/23 @ 09:32 by Caitlyn Guzman RN) History of hip surgery (~02/27/23) History of hip surgery (12/30/22) History of Problems with Anesthesia: No Social History Social History Household Members: Family Household Members Other:: currently in SNF for rehab-[facility] Housing: Apartment Housing Other:: 2nd floor duplex Are you a primary residential child care counselor to a significant other at home: No Do you presently have visiting nurse or other home services: No Alcohol intake: former Comment: wheelchair due to prior hip surgeries Patient Tobacco Use Status: Current everyday Tobacco user Tobacco use type: Cigarette Cigarette Packs Per Day: 0.5 Cigarettes Per Day: 6 Years Smoked: 15 e-Cigarette/Vaping Use: Never Used Second Hand Smoke Exposure: No Substance Use Type: Marijuana Advance Directives Date on File: 02/22/23 service: No Current occupational status: unemployed and disabled Meds Allergies Allergy/AdvReac Type Severity Reaction Status Date / Time tramadol [Ultram] Allergy Intermediate rash Verified 09/13/23 10:54 acetaminophen [From TYLENOL] AdvReac Mild STOMACH Verified 09/13/23 10:54 UPSET Home Medications Medication Instructions Recorded Confirmed Last Taken Type methadone 5 mg/5 mL oral solution 85 mg PO DAILY 12/25/22 09/17/23 02/21/23 History citalopram 40 mg tablet 40 mg PO DAILY 12/29/22 09/14/23 02/21/23 History clonazepam 0.5 mg tablet 1 tab PO DAILY PRN panic attack 12/29/22 09/14/23 12/29/22 History trazodone 50 mg tablet 1 tab PO BEDTIME 12/29/22 09/14/23 12/28/22 History buspirone 30 mg tablet 30 mg PO TID 02/15/23 09/14/23 02/21/23 History cholecalciferol (vitamin D3) 25 25 mcg PO DAILY 02/21/23 09/14/23 Unknown History mcg (1,000 unit) tablet Exam Height,Weight and Vital Signs: Height 5 ft 8 in Weight 123.831 kg Pertinent Lab Results Pertinent Lab Results: Laboratory Tests 09/13/23 12:36 WBC 6.6 RBC 4.55 D Hgb 12.9 D Hct 40.6 D MCV 89.2 MCH 28.4 MCHC 31.8 RDW 13.3 Plt Count 257 MPV 10.5 Immature Gran % (Auto) 0.3 Neut % (Auto) 53.4 Lymph % (Auto) 34.5 Mower % (Auto) 6.8 Eos % (Auto) 3.9 Baso % (Auto) 1.1 Lymph # (Auto) 2.3 Mower # (Auto) 0.5 Eos # (Auto) 0.3 Baso # (Auto) 0.1 Abs Immat Gran (auto) 0.02 Absolute Neuts (auto) 3.5 Absolute Nucleated RBC 0.000 Nucleated RBC % (auto) 0.0 Sodium 134 L Potassium 4.0 Chloride 98 Carbon Dioxide 29 Anion Gap 11 L BUN 17 H Creatinine 0.67 Estim Creat Clear Calc TNP Estimated GFR > 60 Random Glucose 90 Calcium 9.5 Narrative Narrative: EKG 08/2023 Vent. Rate : 083 BPM Atrial Rate : 083 BPM P-R Int : 144 ms QRS Dur : 082 ms QT Int : 376 ms P-R-T Axes : 044 000 018 degrees QTc Int : 441 ms Normal sinus rhythm with sinus arrhythmia Nonspecific T wave abnormality Abnormal ECG When compared with ECG of 09-OCT-2014 07:37, ST no longer elevated in Anterior leads Nonspecific T wave abnormality now evident in Anterolateral leads Assessment and Plan Assessment Anesthesia Assessment: Chart Reviewed Final Anesthetic Review Family History of Problems with Anesthesia: No History of Problems with Anesthesia: No Documented by User: Stepan Varma MD 09/18/23 09:17 [facility] Past Medical History Medical History (Updated 09/14/23 @ 09:11 by Caitlyn Guzman RN) Resides in nursing home facility Hepatitis C Depression with anxiety Asthma Hepatitis C antibody test positive Hx of hepatitis C Skin lesion of left arm Numerous moles Numbness and tingling of both upper extremities Suicide attempt Polysubstance abuse Bipolar 1 disorder Family History Family History Father Sleep apnea Diabetes mellitus Diabetic neuropathy Mother Multiple sclerosis Colitis Fibromyalgia Maternal Grandfather CVD (cardiovascular disease) Kidney disease Heart disease Maternal Grandmother Lupus Arthritis Rheumatoid arthritis Paternal Grandfather No problems noted. Paternal Grandmother No problems noted. Brother No problems noted. Sister No problems noted. Son No problems noted. Son No problems noted. Surgical History Surgical History (Updated 09/14/23 @ 09:32 by Caitlyn Guzman RN) History of hip surgery (~02/27/23) History of hip surgery (12/30/22) Social History Social History Household Members: Family Household Members Other:: currently in SNF for rehab-[facility] Housing: Apartment Housing Other:: 2nd floor duplex Are you a primary residential child care counselor to a significant other at home: No Do you presently have visiting nurse or other home services: No Alcohol intake: former Comment: wheelchair due to prior hip surgeries Patient Tobacco Use Status: Current everyday Tobacco user Tobacco use type: Cigarette Cigarette Packs Per Day: 0.5 Cigarettes Per Day: 6 Years Smoked: 15 e-Cigarette/Vaping Use: Never Used Second Hand Smoke Exposure: No Substance Use Type: Marijuana Advance Directives Date on File: 02/22/23 service: No Current occupational status: unemployed and disabled Meds Allergies Allergy/AdvReac Type Severity Reaction Status Date / Time tramadol [Ultram] Allergy Intermediate rash Verified 09/13/23 10:54 acetaminophen [From TYLENOL] AdvReac Mild STOMACH Verified 09/13/23 10:54 UPSET Home Medications Medication Instructions Recorded Confirmed Last Taken Type methadone 5 mg/5 mL oral solution 85 mg PO DAILY 12/25/22 09/17/23 02/21/23 History citalopram 40 mg tablet 40 mg PO DAILY 12/29/22 09/14/23 02/21/23 History clonazepam 0.5 mg tablet 1 tab PO DAILY PRN panic attack 12/29/22 09/14/23 12/29/22 History trazodone 50 mg tablet 1 tab PO BEDTIME 12/29/22 09/14/23 12/28/22 History buspirone 30 mg tablet 30 mg PO TID 02/15/23 09/14/23 02/21/23 History cholecalciferol (vitamin D3) 25 25 mcg PO DAILY 02/21/23 09/14/23 Unknown History mcg (1,000 unit) tablet Exam Airway Mallampati Class: II TM Dist: >3cm Neck ROM: Limited Heart: rrr Lungs: cta Assessment and Plan Assessment Anesthesia Assessment: Anesthesia Plan Discussed Final Anesthetic Review NPO: Yes ASA Class: III Final Preanesthetic Review: No Changes in Pt Med Stat, Meds/Allgs Chart Reviewed, Consent Obtained/Reviewed and Anes Risks/Benef Reviewed Patient Risk: Intermediate Procedure Risk: Intermediate Anesthetic Plan Anesthetic Plan: GA and Agree w/ Assess. and Plan Disposition: Standard PACU
--- NOTE | 2023-09-17 14:56 | HE.PHANOTE ---
METHADONE CONFIRMATION FORM PATIENT TAKES 85 MG LAST DOSE TAKE 09/17
[2023-09-18] VITALS (15 sets, daily range): BP systolic 76–153; BP diastolic 38–90; PULSE 89–117; RESP 12–20; TEMP 36.4–36.7; O2SAT 96–112; BMI 45.1; BMI 45.0
--- NOTE | ~2023-09-18 | FL_ITS ---
EXAMINATION: XR FLUOROSCOPY WITH IMAGES CLINICAL INFORMATION: Removal of hardware right hip COMPARISON: Previous fluoroscopy exam February 2023 and right femur x-ray March 2023 TECHNIQUE: Fluoroscopy Supervised By: Dr. Isidro Lynch. Fluoroscopy Time: 0.01 minute. Cumulative Dose: 4.3 mGy. DAP: 0.07 Gycm2. Images: 3. FINDINGS: Intramedullary nasima and proximal femoral compression/lag screws have been removed. There is a new right hip replacement in satisfactory position. No fracture or dislocation. FL/FL guidance in OR IMPRESSION: Removal of right hip hardware. New right hip replacement in satisfactory position.
--- NOTE | ~2023-09-18 | XR_ITS ---
EXAMINATION: XR PELVIS CLINICAL INFORMATION: Right total hip arthroplasty. COMPARISON: None available. TECHNIQUE: AP view of the pelvis. FINDINGS: There is a total right hip prosthesis with prosthetic components in satisfactory alignment. Partially visualized left hip joint space is maintained normal. Alignment is anatomic. Sacroiliac joints and pubic symphysis are normal. No abnormal soft tissue calcifications. XR/XR pelvis 1-2V IMPRESSION: Total right hip prosthesis with prosthetic components in satisfactory alignment.
[2023-09-18 09:42] LABS: UPreg QC Valid YES; Urine Pregnancy NEGATIVE (NEGATIVE)
[2023-09-18] MEDS: Lactated Ringers 1,000 ML 100 ML IVCONT ×2 (10:07→18:22)
[2023-09-18] MEDS: oxyCODONE HCl ER 10 MG TAB.ER.12H PO ×2 (10:15→21:29)
[2023-09-18] MEDS: vancomycin/NS 2,000 MG/500 ML PLAST..BAG 250 MG IV (10:18)
--- NOTE | 2023-09-18 10:24 | PC.NURSE ---
dr. vazquez updated regarding patient allergies and reactions. stated ok to give tylenol and oxycodone po as ordered.
--- NOTE | 2023-09-18 10:33 | PC.NURSE ---
patient has poor venous access. SECURITY SYSTEM ANALYST at bedside during IV attempt, ok to place on left side.
--- NOTE | 2023-09-18 10:34 | PC.NURSE ---
IV and attempt by stephenie boyd rn
[2023-09-18 12:13] LABS: MN% 51.3 %; PMN% 48.7 %; RBC Synovial Fluid 0.747 X10*6/uL; WBC Synovial Fluid 0.955 X10*3/uL
[2023-09-18 12:17] LABS: BF Shift QC OK YES; Man Diluent Bkgrd OK YES
[2023-09-18 12:42] LABS: Eosinophils Synovial Fluid 5 %; Lymphocytes Synovial Fluid 21 %; Monocytes Synovial Fluid 8 %; Neutrophils Synovial Fluid 66 %
--- NOTE | 2023-09-18 14:58 | PM.OP ---
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
--- NOTE | 2023-09-18 15:00 | PHA.MEDREC ---
Pharmacy Consult ? Medication Reconciliation Pharmacy has completed the medication reconciliation.pharmacy has reviewed med rec completed by nursing and made corrections using list from [facility] where patient is currently a resident
--- NOTE | 2023-09-18 15:01 | MHC.SHP ---
Pre-Procedural Eval Section A Date of Service: 09/18/23 The patient is an INPATIENT: No Changes since office visit: No Cold of Flu in the past 2 weeks, No New Medical Problems, No Changes in Medication and No Patient answered all questions The History & Physical has been completed within 30 days and I have reviewed it.: Yes Section B Chief Complaint: RT WILLIE Allergies: Allergies Allergy/AdvReac Type Severity Reaction Status Date / Time tramadol [Ultram] Allergy Intermediate rash Verified 09/18/23 09:46 acetaminophen [From TYLENOL] AdvReac Mild STOMACH Verified 09/18/23 09:46 UPSET Plan I have reviewed the history and physical and performed a pertinent physical examination on my patient. No changes have occurred unless specified. Time Spent With Patient Time: Total time managing care of this patient today ____ minutes.
[2023-09-18] MEDS: oxyCODONE HCl Immed Release 5 MG TABLET 10 MG PO (16:45)
[2023-09-18] MEDS: HYDROmorphone HCl 0.5 MG/0.5 ML SYRINGE IVPUSH ×3 (16:55→23:45)
[2023-09-18] MEDS: levalbuterol HCL 1.25 MG/3 ML VIAL.NEB INHALE (17:04)
[2023-09-18] MEDS: Gabapentin 300 MG CAPSULE 600 MG PO (17:13)
[2023-09-18] MEDS: ondansetron HCL 4 MG/2 ML VIAL IVPUSH (18:21)
[2023-09-18 19:29] LABS: Creatinine Clr Calc Pharmacy 146.5; Estimated Glomerular Filt Rate > 60
[2023-09-18] MEDS: 0.9 % Sodium Chloride Flush 3 ML SYRINGE IVFLUSH (19:43)
--- NOTE | 2023-09-18 19:49 | P.CONHOSP_ITS ---
History of Present Illness Data of Consult Service Date: 09/18/23 Requesting physician: Isidro Lynch Primary Care Provider: MD MEENA Diaz Reason for consult: Medical comanagement for patient who is s/p Right WILLIE Patient is a 33 year old morbidly obese (BMI 45) white female with past medical history of Bipolar disorder, Hepatitis C, smoker, opioid abuse (on Methadone) and who is status post right total hip arthroplasty earlier today after a failed intramedullary nail placement who is now admitted for post-operative care. She does not have any new complains at this time. Review of Systems 2 Review of Systems: Yes all other systems are reviewed and are negative [facility], [facility] Medical History Resides in nursing home facility Hepatitis C Depression with anxiety Asthma Hepatitis C antibody test positive Hx of hepatitis C Skin lesion of left arm Numerous moles Numbness and tingling of both upper extremities Suicide attempt Polysubstance abuse Bipolar 1 disorder Family History Father Sleep apnea Diabetes mellitus Diabetic neuropathy Mother Multiple sclerosis Colitis Fibromyalgia Maternal Grandfather CVD (cardiovascular disease) Kidney disease Heart disease Maternal Grandmother Lupus Arthritis Rheumatoid arthritis Paternal Grandfather No problems noted. Paternal Grandmother No problems noted. Brother No problems noted. Sister No problems noted. Son No problems noted. Son No problems noted. Surgical History History of hip surgery (~02/27/23) History of hip surgery (12/30/22) Social History Household Members: None Household Members Other:: currently in SNF for rehab-[facility] Housing: Correction Housing Other:: [facility] Are you a primary patient care to a significant other at home: No Do you presently have visiting nurse or other home services: No Unable to assess alcohol history related to: Unknown Alcohol intake: former Comment: wheelchair due to prior hip surgeries Patient Tobacco Use Status: Current everyday Tobacco user Tobacco use type: Cigarette Cigarette Packs Per Day: 0.5 Cigarettes Per Day: 6 Years Smoked: 15 e-Cigarette/Vaping Use: Never Used Second Hand Smoke Exposure: No Substance Use Type: Marijuana Substance Use Type Other:: currently taking methadone Have you been hit, kicked, punched, or otherwise hurt by someone within the past year? If so, by whom?: No Do you feel safe in your current relationship?: Yes Is there a partner from a previous relationship who is making you feel unsafe now?: No Are you made to feel afraid or neglected: No Are you DNR?: No Advance Directives: Yes Advance Directives Information Provided: Yes Advance Directives on File: Yes Advance Directives Date on File: 02/22/23 Do you have thoughts of harming others: None Do you have a plan to hurt others: No Plan Recently lost weight without trying: No Eating poorly because of decreased appetite: No Nutrition Risks: No Nutritional Risk Patient : No FDLMP: 08/16/23 : No Poor oral hygiene: No service: No Current occupational status: unemployed and disabled Meds Allergies Allergy/AdvReac Type Severity Reaction Status Date / Time tramadol [Ultram] Allergy Intermediate rash Verified 09/18/23 09:46 acetaminophen [From TYLENOL] AdvReac Mild STOMACH Verified 09/18/23 09:46 UPSET Active Medications: Current Medications Acetaminophen (Acetaminophen 325 Mg Tablet) 650 mg PO Q6H PRN PRN Reason: Pain, Mild (Pain Scale 1-3) Albuterol Sulfate (Albuterol Sulfate 90 Mcg 8 Gm Inhaler) 1 puff INHALE Q4H PRN PRN Reason: shortness of breath or wheezing Buspirone HCl (Buspirone Hcl 10 Mg Tablet) 30 mg PO TID [facility] Celecoxib (Celecoxib 200 Mg Capsule) 200 mg PO BID [facility] Clonazepam (Clonazepam 0.5 Mg Tablet) 0.5 mg PO BID PRN PRN Reason: panic attack Cyclobenzaprine HCl (Cyclobenzaprine Hcl 10 Mg Tablet) 10 mg PO TID PRN PRN Reason: Muscle Spasm Docusate Sodium (Docusate Sodium 100 Mg Capsule) 100 mg PO BID [facility] Enoxaparin Sodium (Enoxaparin Sodium 40 Mg/0.4 Ml Syringe) 40 mg SUBCUT Q24H [facility] Escitalopram Oxalate (Escitalopram Oxalate 20 Mg Tablet) 20 mg PO DAILY [facility] Gabapentin (Gabapentin 300 Mg Capsule) 300 mg PO TID [facility] Hydromorphone HCl (Hydromorphone Hcl 0.5 Mg/0.5 Ml Syringe) 0.5 mg IVPUSH Q3H PRN; Protocol PRN Reason: Pain, Severe (Pain Scale 7-10) Last Admin: 09/18/23 19:43 Dose: 0.5 mg Promethazine HCl 12.5 mg/ (Sodium Chloride) 50.5 mls @ 202 mls/hr IV ONCE PRN PRN Reason: Nausea and Vomiting Lactated Ringer's (Lr) 1,000 mls @ 100 mls/hr IVCONT .Q10H [facility] Stop: 09/19/23 15:36 Last Admin: 09/18/23 18:22 Dose: 100 mls/hr Vancomycin HCl 1,000 mg/ (Sodium Chloride) 270 mls @ 270 mls/hr IV Q12H [facility] Methadone HCl (Methadone Hcl 20 Mg/2 Ml Oral.Conc) 85 mg PO DAILY [facility] Ondansetron HCl (Ondansetron Hcl 4 Mg/2 Ml Vial) 4 mg IVPUSH Q8H PRN PRN Reason: Nausea and Vomiting Last Admin: 09/18/23 18:21 Dose: 4 mg Oxycodone HCl (Oxycodone Hcl Immed Release 5 Mg Tablet) 10 mg PO ONCE PRN PRN Reason: Pain, Severe (Pain Scale 7-10) Oxycodone HCl (Oxycodone Hcl Immed Release 5 Mg Tablet) 10 mg PO Q4H PRN PRN Reason: Pain, Moderate(Pain Scale 4-6) Oxycodone HCl (Oxycodone Hcl Er 10 Mg Tab.Er.12h) 10 mg PO BID [facility] Pharmacy Consult (Consult Rx Vancomycin Dosing) 1 each MISCELLANE DAILY PRN PRN Reason: Consult order Sodium Chloride (0.9 % Sodium Chloride Flush 3 Ml Syringe) 3 ml IVFLUSH QSHIFT [facility] Last Admin: 09/18/23 19:43 Dose: 3 ml Trazodone HCl (Trazodone Hcl 50 Mg Tablet) 50 mg PO BEDTIME [facility] Home Medications Medication Instructions Recorded Confirmed Last Taken Type methadone 5 mg/5 mL oral solution 85 mg PO DAILY 12/25/22 09/17/23 09/18/23 History citalopram 40 mg tablet 40 mg PO DAILY 12/29/22 09/14/23 02/21/23 History clonazepam 0.5 mg tablet 1 tab PO BID PRN panic attack 12/29/22 09/18/23 09/18/23 History trazodone 50 mg tablet 1 tab PO BEDTIME 12/29/22 09/14/23 12/28/22 History buspirone 30 mg tablet 30 mg PO TID 02/15/23 09/14/23 09/18/23 History cholecalciferol (vitamin D3) 25 25 mcg PO DAILY 02/21/23 09/14/23 Unknown History mcg (1,000 unit) tablet albuterol sulfate 90 mcg/actuation 1 inh inhalation Q4H PRN shortness 09/18/23 09/18/23 Unknown History aerosol inhaler (Ventolin HFA) of breath or wheezing cyclobenzaprine 10 mg tablet 10 mg PO TID PRN Muscle Spasm 09/18/23 09/18/23 Unknown History docusate sodium 100 mg capsule 100 mg PO BID PRN Constipation 09/18/23 09/14/23 Unknown History gabapentin 300 mg capsule 300 mg PO TID 09/18/23 09/18/23 Unknown History Physical Exam 2 Vital Signs and Narrative: Vital Signs: Last Vital Signs Temp 98.1 F 09/18/23 15:30 Pulse 110 H 09/18/23 17:05 Resp 14 09/18/23 17:05 BP 99/69 09/18/23 17:00 Pulse Ox 99 09/18/23 17:00 O2 Del Method Nasal Cannula wit h Capnography 09/18/23 17:00 O2 Flow Rate 2 09/18/23 17:00 BMI result Body Mass Index 45.0 General: Obese young white female in bed. Awake and alert. In no apparent distress Eyes: No pallor or jaundice. PERRLA, EOMI HENT: Moist oral mucus membranes. No oropharyngeal lesions. Neck: Supple. No cervical adenopathy. No JVD Cardiovascular: Regular rate and rhythm. Normal heart sounds. No murmurs, rubs or gallops. No JVD. No peripheral edema. Respiratory: Normal respiratory effort with no accessory muscle use. CTA bilaterally. Gastrointestinal: Abdomen is soft, non-tender, non-distended. Normoactive bowel sounds. No hepatosplenomegally Extremities: Right lateral thigh with clean dry dressing. No edema. No calf tenderness. Good peripheral pulses Skin: Warm/Dry. No rashes. No mottling. Capillary refill is < 2 seconds Neurological - AAOx4. Intact speech & cognition. Moves all extremities. CN II - XII grossly intact but not individually tested. No motor or sensory deficits Hematologic: No bleeding. No ecchymosis. No swollen or tender lymph nodes. Psychiatric: Cooperative. Appropriate mood and affect . Results Labs 09/13/23 12:36 09/18/23 19:09 Labs: Laboratory Results - last 24 hr 09/18/23 09/18/23 09/18/23 09:57 11:51 19:09 Estim Creat Clear Calc 146.5 Estimated GFR > 60 Urine Test Synovial Source synovial fluid right hip Synovial WBC 0.955 Synovial RBC 0.747 Synovial Neutrophils 66 Synovial Lymphocytes 21 Synovial Monocytes 8 Synovial Eosinophils 5 Blood Type O Positive Antibody Screen NEGATIVE 09/18/23 Unknown Estim Creat Clear Calc Estimated GFR Urine Test NEGATIVE Synovial Source Synovial WBC Synovial RBC Synovial Neutrophils Synovial Lymphocytes Synovial Monocytes Synovial Eosinophils Blood Type Antibody Screen Assessment and Plan (1) S/P total right hip arthroplasty: Status: Acute (2) Morbid obesity with BMI of 45.0-49.9, adult: Status: Acute (3) Smoker: Status: Acute (4) Polysubstance abuse: Status: Acute Plan 33 year old morbidly obese white female with history of Bipolar disorder, hepatitis C, active cigarette smoker, opioid abuse (on Methadone) and s/p right total hip arthroplasty earlier today. 1. s/p right total hip arthroplasty - further management per the Orthopedic Surgical team 2. Bipolar disorder - resume Citalopram & Buspar 3. Active Smoker - offered NRT but declined at this time 4. H/O Opioid abuse - in remission on Methadone - resume usual dose - 85 mg once a day 5. Morbid Obesity - BMI of 45 - encourage weight loss
[2023-09-18] MEDS: traZODone HCL 50 MG TABLET PO (21:29)
[2023-09-18] MEDS: Gabapentin 300 MG CAPSULE PO (21:29)
[2023-09-18] MEDS: Celecoxib 200 MG CAPSULE PO (21:29)
[2023-09-18] MEDS: Docusate Sodium 100 MG CAPSULE PO (21:29)
[2023-09-18] MEDS: busPIRone HCl 10 MG TABLET 30 MG PO (21:29)
[2023-09-18] MEDS: clonazePAM 0.5 MG TABLET PO (21:36)
[2023-09-18] MEDS: vancomycin HCL 1,000 MG in 0.9 % Sodium Chloride 250 ML 270 MG IV (23:29)
[2023-09-19 03:34] VITALS: BP 125/59; PULSE 117; RESP 18; TEMP 36.3; O2SAT 96
[2023-09-19] MEDS: HYDROmorphone HCl 0.5 MG/0.5 ML SYRINGE IVPUSH ×4 (04:46→22:24)
[2023-09-19] MEDS: Lactated Ringers 1,000 ML 100 ML IVCONT (04:50)
--- NOTE | 2023-09-19 06:08 | PC.NURSE ---
pt post-op day one, voided greater than 1000 mL, new IV established by other nurse at left forearm 22g, provided pain meds throughout the night per eMar. no drainage at incision site. D/C/I. will continue monitor
--- NOTE | 2023-09-19 07:20 | PM.PNORT ---
Subjective Subjective Date of Service: 09/19/23 Interval history: POD1 s/p right hip removal of orthopedic hardware and total hip arthroplasty Patient is resting in bed comfortably No overnight events Pain is managed No additional complaints Physical Exam Vital Signs: Vital Signs: Last Vital Signs Temp 97.4 F 09/19/23 03:34 Pulse 117 H 09/19/23 03:34 Resp 18 09/19/23 03:34 BP 125/59 L 09/19/23 03:34 Pulse Ox 96 09/19/23 03:34 O2 Del Method Room Air 09/19/23 03:34 O2 Flow Rate 2 09/18/23 17:00 BMI result Body Mass Index 45.0 Const: General: cooperative, healthy appearing and no acute distress Resp: Effort & Inspection: normal respiratory effort and able to speak in complete sentences Cardio: Rate: regular rate Peripheral pulses: Peripheral pulses 2+ throughout GI: Palpation (GI): Soft to palpation Skin: Lesions: no lesions Rashes: no rashes Extrem: Other: right hip dressing is c/d/i. Able to dorsi/plantar flex. Calf is supple and nontender. Sensation intact. Pedal pulse intact. CARINA device fxning properly with appropriate pressure Procedures Date of Service Date of Service: 09/19/23 Progress Note: A&P Assessment and plan (1) Morbid obesity with BMI of 45.0-49.9, adult: Status: Acute Assessment and Plan: Continue pain mgmnt Begin Lovenox for dvt ppx begin PT for RTHA - Strict hip precautions, if unable to follow will need abduction pillow, Partial WB Dispo planning-Pending PT eval, pain mgmnt Continued hospitalization needed for pain management and physical therapy (2) S/P total right hip arthroplasty: Status: Acute (3) History of femur fracture: Status: Acute (4) Polysubstance abuse: Status: Acute Time Spent With Patient Time: Total time managing care of this patient today ____ minutes. Quality Stroke Does the patient have a stroke diagnosis?: No VTE Prior VTE?: No VTE Risk Level:: Medical - moderate - high VTE Device Contraindication: N/A - Device Ordered VTE Drug Contraindication: N/A - Med Ordered
[2023-09-19 07:32] LABS: MANUAL DIFF FLAG NO
[2023-09-19 07:45] LABS: Basophils Percent Auto 0.3 % (0-2); Hematocrit 26.1 % (37.0-47.0); Hemoglobin 8.2 g/dl (12.0-16.0); Imm Gran Abs Auto 0.06 X10*3/uL (0.00-0.03); Imm Gran Pct Auto 0.5 % (0.0-0.4); Lymphocytes Absolute Auto 2.2 X10*3/uL (1.2-4.9); Lymphocytes Percent Auto 19.3 % (20-40); Mean Corpuscular HGB Conc 31.4 g/dl (31.0-35.0); Mean Corpuscular Hemoglobin 28.2 pg (27.0-33.0); Mean Corpuscular Volume 89.7 fL (80.0-98.0); Mean Platelet Volume 11.1 fL (9.4-12.3); Monocytes Absolute Auto 1.3 X10*3/uL (0.1-1.2); Monocytes Percent Auto 11.4 % (2-11); Neutrophils Absolute Auto 7.9 x10*3/uL (2.0-8.3); Neutrophils Percent Auto 68.5 % (45-73); Platelet Count 267 X10*3/uL (160-400); Red Blood Count 2.91 X10*6/uL (4.20-5.50); Red Cell Distribution Width 13.4 % (11.0-16.0); White Blood Count 11.5 X10*3/uL (4.8-10.8)
[2023-09-19 07:49] VITALS: BP 119/69; PULSE 126; RESP 18; TEMP 36.8; O2SAT 94
[2023-09-19 07:57] LABS: Anion Gap 10 (12-20); Blood Urea Nitrogen 14 mg/dL (9-16); Calcium 8.4 mg/dL (8.4-10.2); Carbon Dioxide 26 mmol/L (22-29); Chloride 104 mmol/L (96-108); Creatinine Clr Calc Pharmacy 144.6; Estimated Glomerular Filt Rate > 60; Glucose Fasting 127 mg/dL (60-99); Potassium 4.2 mmol/L (3.3-5.1); Sodium 136 mmol/L (135-145)
[2023-09-19] MEDS: methADONE HCl 20 MG/2 ML ORAL.CONC 85 MG PO (08:25)
[2023-09-19] MEDS: Escitalopram Oxalate 20 MG TABLET PO (08:26)
[2023-09-19] MEDS: busPIRone HCl 10 MG TABLET 30 MG PO ×3 (08:26→20:47)
[2023-09-19] MEDS: Gabapentin 300 MG CAPSULE PO ×3 (08:26→20:48)
[2023-09-19] MEDS: oxyCODONE HCl ER 10 MG TAB.ER.12H PO ×2 (08:27→20:47)
[2023-09-19] MEDS: Celecoxib 200 MG CAPSULE PO ×2 (08:27→20:48)
[2023-09-19] MEDS: Docusate Sodium 100 MG CAPSULE PO ×2 (08:27→20:47)
[2023-09-19] MEDS: clonazePAM 0.5 MG TABLET PO (08:36)
[2023-09-19 10:13] VITALS: BP 119/69; PULSE 126; O2SAT 94
--- NOTE | 2023-09-19 10:48 | HO.PM.IMPN ---
Subjective Subjective Date of Service: 09/19/23 Interval History: hip pain Physical Exam Vital Signs: Vital Signs: Last Vital Signs Temp 98.3 F 09/19/23 07:49 Pulse 126 H 09/19/23 10:13 Resp 18 09/19/23 07:49 BP 119/69 09/19/23 10:13 Pulse Ox 94 09/19/23 10:13 O2 Del Method Room Air 09/19/23 07:49 O2 Flow Rate 2 09/18/23 17:00 BMI result Body Mass Index 45.0 Const: General: cooperative, healthy appearing and no acute distress Resp: Effort & Inspection: normal respiratory effort and able to speak in complete sentences Cardio: Rate: regular rate Peripheral pulses: Peripheral pulses 2+ throughout GI: Palpation (GI): Soft to palpation Skin: Lesions: no lesions Rashes: no rashes Extrem: Other: right hip dressing is c/d/i. Able to dorsi/plantar flex. Calf is supple and nontender. Sensation intact. Pedal pulse intact. CARINA device fxning properly with appropriate pressure Objective Data Active Medications Acetaminophen (Acetaminophen 325 Mg Tablet) 650 mg PO Q6H PRN PRN Reason: Pain, Mild (Pain Scale 1-3) Albuterol Sulfate (Albuterol Sulfate 90 Mcg 8 Gm Inhaler) 1 puff INHALE Q4H PRN PRN Reason: shortness of breath or wheezing Buspirone HCl (Buspirone Hcl 10 Mg Tablet) 30 mg PO TID [facility] Last Admin: 09/19/23 08:26 Dose: 30 mg Documented By: SARA Celecoxib (Celecoxib 200 Mg Capsule) 200 mg PO BID [facility] Last Admin: 09/19/23 08:27 Dose: 200 mg Documented By: SARA Clonazepam (Clonazepam 0.5 Mg Tablet) 0.5 mg PO BID PRN PRN Reason: panic attack Last Admin: 09/19/23 08:36 Dose: 0.5 mg Documented By: SARA Cyclobenzaprine HCl (Cyclobenzaprine Hcl 10 Mg Tablet) 10 mg PO TID PRN PRN Reason: Muscle Spasm Docusate Sodium (Docusate Sodium 100 Mg Capsule) 100 mg PO BID [facility] Last Admin: 09/19/23 08:27 Dose: 100 mg Documented By: SARA Enoxaparin Sodium (Enoxaparin Sodium 40 Mg/0.4 Ml Syringe) 40 mg SUBCUT Q24H [facility] Escitalopram Oxalate (Escitalopram Oxalate 20 Mg Tablet) 20 mg PO DAILY [facility] Last Admin: 09/19/23 08:26 Dose: 20 mg Documented By: SARA Gabapentin (Gabapentin 300 Mg Capsule) 300 mg PO TID [facility] Last Admin: 09/19/23 08:26 Dose: 300 mg Documented By: SARA Hydromorphone HCl (Hydromorphone Hcl 0.5 Mg/0.5 Ml Syringe) 0.5 mg IVPUSH Q3H PRN; Protocol PRN Reason: Pain, Severe (Pain Scale 7-10) Last Admin: 09/19/23 08:31 Dose: 0.5 mg Documented By: SARA Promethazine HCl 12.5 mg/ (Sodium Chloride) 50.5 mls @ 202 mls/hr IV ONCE PRN PRN Reason: Nausea and Vomiting Lactated Ringer's (Lr) 1,000 mls @ 100 mls/hr IVCONT .Q10H [facility] Stop: 09/19/23 15:36 Last Admin: 09/19/23 04:50 Dose: 100 mls/hr Documented By: ALAINA Vancomycin HCl 1,000 mg/ (Sodium Chloride) 270 mls @ 270 mls/hr IV Q12H [facility] Last Infusion: 09/19/23 00:34 Dose: Infused Documented By: ALAINA Methadone HCl (Methadone Hcl 20 Mg/2 Ml Oral.Conc) 85 mg PO DAILY [facility] Last Admin: 09/19/23 08:25 Dose: 85 mg Documented By: SARA Ondansetron HCl (Ondansetron Hcl 4 Mg/2 Ml Vial) 4 mg IVPUSH Q8H PRN PRN Reason: Nausea and Vomiting Last Admin: 09/18/23 18:21 Dose: 4 mg Documented By: SARA Oxycodone HCl (Oxycodone Hcl Immed Release 5 Mg Tablet) 10 mg PO ONCE PRN PRN Reason: Pain, Severe (Pain Scale 7-10) Oxycodone HCl (Oxycodone Hcl Immed Release 5 Mg Tablet) 10 mg PO Q4H PRN PRN Reason: Pain, Moderate(Pain Scale 4-6) Oxycodone HCl (Oxycodone Hcl Er 10 Mg Tab.Er.12h) 10 mg PO BID [facility] Last Admin: 09/19/23 08:27 Dose: 10 mg Documented By: SARA Pharmacy Consult (Consult Rx Vancomycin Dosing) 1 each MISCELLANE DAILY PRN PRN Reason: Consult order Sodium Chloride (0.9 % Sodium Chloride Flush 3 Ml Syringe) 3 ml IVFLUSH QSHIFT [facility] Last Admin: 09/19/23 08:15 Dose: Not Given Documented By: SARA Non-Admin Reason: IV Running Trazodone HCl (Trazodone Hcl 50 Mg Tablet) 50 mg PO BEDTIME [facility] Last Admin: 09/18/23 21:29 Dose: 50 mg Documented By: ALAINA Labs 09/19/23 06:28 09/19/23 06:28 Labs: Laboratory Results - last 24 hr 09/18/23 09/18/23 09/19/23 11:51 19:09 06:28 MCV 89.7 MCH 28.2 MCHC 31.4 RDW 13.4 Plt Count 267 MPV 11.1 Immature Gran % (Auto) 0.5 H Neut % (Auto) 68.5 Lymph % (Auto) 19.3 L [place] % (Auto) 11.4 H Eos % (Auto) 0.0 Baso % (Auto) 0.3 Lymph # (Auto) 2.2 [place] # (Auto) 1.3 H Eos # (Auto) 0.0 Baso # (Auto) 0.0 Abs Immat Gran (auto) 0.06 H Absolute Neuts (auto) 7.9 Absolute Nucleated RBC 0.000 Nucleated RBC % (auto) 0.0 Anion Gap 10 L Estim Creat Clear Calc 146.5 144.6 Estimated GFR > 60 > 60 Fasting Glucose 127 H Calcium 8.4 D Synovial Source synovial fluid right hip Synovial WBC 0.955 Synovial RBC 0.747 Synovial Neutrophils 66 Synovial Lymphocytes 21 Synovial Monocytes 8 Synovial Eosinophils 5 Microbiology Microbiology Results: Microbiology 09/18/23 11:51 Gram Stain - Final Hip aspirate Anaerobic Culture - Preliminary No growth to date. Joint Fluid Culture - Preliminary No growth after 1 day Assessment and Plan (1) Morbid obesity with BMI of 45.0-49.9, adult: Status: Acute Plan 33 year old morbidly obese white female with history of Bipolar disorder, hepatitis C, active cigarette smoker, opioid abuse (on Methadone) and s/p right total hip arthroplasty earlier today. s/p right total hip arthroplasty pod 1 Bipolar disorder Citalopram & Buspar Active Smoker offered NRT but declined at this time opiated dependence in remission on Methadone on usual dose - 85 mg once a day Morbid Obesity BMI of 45 encourage weight loss medically stable, will sign off for now, please receall if needed Quality Stroke Does the patient have a stroke diagnosis?: No VTE Prior VTE?: No VTE Risk Level:: Medical - moderate - high VTE Device Contraindication: N/A - Device Ordered VTE Drug Contraindication: N/A - Med Ordered
[2023-09-19] MEDS: vancomycin HCL 1,000 MG in 0.9 % Sodium Chloride 250 ML 270 MG IV (10:50)
[2023-09-19] MEDS: oxyCODONE HCl Immed Release 5 MG TABLET 10 MG PO ×2 (11:49→15:40)
--- NOTE | 2023-09-19 11:49 | P.OP_ITS ---
Operative Note Operative Note Date of Service: 09/18/23 Narrative: Date of Service: 09/18/23 Pre-op diagnosis: Right femoral neck non union Post-op diagnosis: same Procedure: Right WILLIE, complicated. Removal of hardware Closure of incision greater than 20 cm Implants: [place] secure fit with +5/32 ceramic Trident 2 48 with 2 6.5 screws and 10 deg lip liner Surgeon: Isidro Lynch MD Anesthesia: GETA and local Was an Fixed Interest Dealer used for this Procedure?: Yes Fixed Interest Dealer: Jazmyne Salguero Estimated blood loss (mL): 400 IV fluids (mL): 2,100 Pathology: other Condition: stable Disposition: PACU Procedure in detail: Patient was brought into the operating room and placed in the right lateral decubitus position. All bony prominences were well padded and the limb was prepped and draped in standard sterile fashion. A time-out was called to identify proper site procedure proper surgeon IV antibiotics and 1 g of transaxemic acid were administered. I began by making a curvilinear incision over the posterolateral aspect of the greater trochanter. She has abundant adipose tissue and a 45-50 cm incision was made. Dissection was taken down to the tensor fascia which was incised in line with the incision and a Charnley retractor was placed. I dissected proximally over the abductors and bluntly down to the greater where I could visualize the nail. The set screw was removed and the extractor was inserted easily. I then turned my attention to the lateral hip where the hip screw and the cannulated screw were visualized. The hipo screw was removed and then distally a stab incision was made and the distal interlocking screw was removed. The nail was then backslapped out and the cannulated screw removed. I copiously irrigated and then internally rotated the hip and partially dislocated. The femoral neck fracture was still visible and prevented me from fully dislocating. I used a saw to make my neck cut and then removed the femroal head. It had been cut out with the hip screw. I measured a 44 head. I cleaned up the neck and placed my anterior and posterior acetabular retractors. The intertrochanteric region was stable and there was no evidence of unstable fracture. I then removed the labrum and cauterized the fovea. I started with a 44 reamer and medialized to the inner table. I sequentially reamed up to a size 48 and impacted a 48mm cup at 45 degrees of inclination and 25 degrees of version. 2 acetabular screws were placed superiorly using standard AO technique. I then placed a 10 deg posterior lipped liner and turned my attention to the femur. I identified the piriformis insertion and used this as a starting point for my yoel cutter. The medius tendon was protected with a Hibs retractor. A Charnley awl was inserted in the canal and a curved curette used to remove the lateral bone. I irrigated copiously. I then sequentially broached and reamed in the patient's natural version to a size 9 and placed my trial implants. I used a #10/127 based on my pre-operative template. The reduction was difficult given how short she had been. I was eventually able to get a +5/32 reduced and I took the hip through range of motion. It was not as stable as I would have liked so I switched to a 127 deg and I was satisfied with the stability. I removed all instrumentation and copiously irrigated. I placed my final femoral implant and again took the hip through range of motion and was satisfied with the stability and length. The final +5 implant was impacted in place and the hip reduced. I then irrigated for 3 minutes with iodine and placed 1 g of local transaxemic acid. I performed a capsular closure with 2.0 fiberwire, Earl's fascia with 0 Vicryl, subcuticular with 2-0 Vicryl and the skin with rufus. Patient was placed into a sterile dressing. Patient was extubated brought to the recovery room in stable condition. There were no known complications.
[2023-09-19] MEDS: Enoxaparin Sodium 40 MG/0.4 ML SYRINGE SUBCUT (14:21)
--- NOTE | 2023-09-19 14:51 | MHC.CM.PN ---
pt from [facility] where she will return when dcd
--- NOTE | 2023-09-19 15:19 | HO.POSTANES ---
Post Anesthesia Evaluation Post Anesthesia Evaluation Date of Service: 09/19/23 Vital Signs: Vital Signs Temp Pulse Resp BP Pulse Ox O2 Del Method 09/19/23 10:13 126 H 119/69 94 09/19/23 07:49 98.3 F 126 H 18 119/69 94 Room Air 09/19/23 03:34 97.4 F 117 H 18 125/59 L 96 Room Air Anesthesia: General Mental Status: Awake Pain Control: Satisfactory Nausea/Vomiting: None Hydration: Adequate Anesthesia-Related Issues: No Anes. Related Issues
[2023-09-19 15:25] VITALS: BP 122/68; PULSE 133; RESP 20; TEMP 36.6; O2SAT 98
[2023-09-19] MEDS: Acetaminophen 325 MG TABLET 650 MG PO (15:40)
--- NOTE | 2023-09-19 16:09 | PC.NURSE ---
Patient's peripheral IV infiltrated after vanco dose at approx 12p. Multiple attempts made by nurses for new IV without success. Jeanie Hopper notifiedvat 3:25pm. New orders given for stat midline. I.R. called for pt at 4pm.
--- NOTE | 2023-09-19 17:09 | HO.MIDLINE ---
Midline Insertion MIDLINE INSERTION Diagnosis: poor IV access Indication: pain management Pertinent Labs: reviewed Technique: Using sterile technique including cap and mask, glove and drape, the right arm was prepped and draped in the usual sterile fashion of full barrier technique with G. Using ultrasound guidance, right basilic vein access was obtained . 20G x 10cm midline catheter was positioned. The procedure was performed in room 272. Ultrasound was used to document vein patency and for needle entry. A formal ultrasound picture was recorded. Vascular Hazard Mitigation Officer has released the line for use and it is currently dressed with a StatLock, Tegaderm, and CHG disc. Verification has been performed for blood return and line patency. Arm Circumference: 37cm Equipment: BARD Powerglide ST midline catheter Catheter Type: 20g x 10cm Lot #: [id number]
[2023-09-19 20:00] VITALS: BP 104/61; PULSE 91; RESP 18; TEMP 36.6; O2SAT 96
[2023-09-19] MEDS: traZODone HCL 50 MG TABLET PO (20:47)
[2023-09-19] MEDS: 0.9 % Sodium Chloride Flush 3 ML SYRINGE IVFLUSH (20:48)
[2023-09-19 21:36] LABS: Vancomycin Random 5.6 mcg/mL (15-20)
[2023-09-19] MEDS: vancomycin HCL 1,250 MG in 0.9 % Sodium Chloride 250 ML 166.67 MG IV (22:11)
[2023-09-20] VITALS (14 sets, daily range): BP systolic 106–120; BP diastolic 54–71; PULSE 93–100; RESP 16–18; TEMP 36.4–37.3; O2SAT 95–96
[2023-09-20] MEDS: HYDROmorphone HCl 0.5 MG/0.5 ML SYRINGE IVPUSH ×4 (03:44→17:17)
[2023-09-20 06:26] LABS: MANUAL DIFF FLAG NO
[2023-09-20] MEDS: vancomycin HCL 1,250 MG in 0.9 % Sodium Chloride 250 ML 166.67 MG IV (06:32)
[2023-09-20] MEDS: oxyCODONE HCl Immed Release 5 MG TABLET 10 MG PO ×2 (06:38→16:05)
[2023-09-20 06:56] LABS: Anion Gap 11 (12-20); Blood Urea Nitrogen 12 mg/dL (9-16); Calcium 8.2 mg/dL (8.4-10.2); Carbon Dioxide 27 mmol/L (22-29); Chloride 102 mmol/L (96-108); Estimated Glomerular Filt Rate > 60; Glucose Fasting 137 mg/dL (60-99); Potassium 3.5 mmol/L (3.3-5.1); Sodium 136 mmol/L (135-145)
[2023-09-20 07:00] LABS: Basophils Absolute Auto 0.1 X10*3/uL (0.0-0.2); Basophils Percent Auto 0.7 % (0-2); Eosinophils Absolute Auto 0.1 X10*3/uL (0.0-0.4); Eosinophils Percent Auto 0.7 % (0-4); Imm Gran Abs Auto 0.06 X10*3/uL (0.00-0.03); Imm Gran Pct Auto 0.7 % (0.0-0.4); Lymphocytes Absolute Auto 2.4 X10*3/uL (1.2-4.9); Lymphocytes Percent Auto 25.9 % (20-40); Mean Corpuscular HGB Conc 32.2 g/dl (31.0-35.0); Mean Corpuscular Hemoglobin 29.1 pg (27.0-33.0); Mean Corpuscular Volume 90.4 fL (80.0-98.0); Mean Platelet Volume 10.8 fL (9.4-12.3); Monocytes Absolute Auto 1.1 X10*3/uL (0.1-1.2); Monocytes Percent Auto 12.2 % (2-11); Neutrophils Absolute Auto 5.5 x10*3/uL (2.0-8.3); Neutrophils Percent Auto 59.8 % (45-73); Platelet Count 214 X10*3/uL (160-400); Red Cell Distribution Width 13.7 % (11.0-16.0); White Blood Count 9.2 X10*3/uL (4.8-10.8)
--- NOTE | 2023-09-20 07:11 | P.DS_ITS ---
DS: Providers Provider Date of Service: 09/25/23 Date of admission: 09/18/23 09:24 Primary care physician: Pam Brito MD Consults: 09/18/23 17:29 Consult to Hospitalist Routine Comment: Consulting Provider: Hospitalist Reason For Exam: h/o substance abuse DS: Diagnosis Discharge Diagnosis (1) S/P total right hip arthroplasty: Status: Acute DS: Summary Hospital Course Hospital Course: The patient underwent a successful Removal of hardware with placement of right total hip arthroplasty on 09/18/23 , was transferred to PACU and then to the floor to recover. During their stay, their vitals were stable, afebrile at 98.2. Labs were unremarkable, H/H 9.5/28.3 . POD 1 she was started on lovenox once a day for DVT ppx, they also received Physical Therapy services twice a day. POD 2 she received 2units of PRBC's due to low h/h 6.8/20.8, h/h went up to 8.4/25.4. POD 6 h/h dropped to 7.2/22.1, she recieved another 2 Units PRBCs. Physical Therapy for Total hip arthroplasty: Partial weight bearing ( 50%) , Severe posterior precautions, gait training, ROM, strength Posterior precautions include: Not sitting with more than 90 deg bend at the hip, avoid deep bending at the hips to get up from a chair and pushing off, do not cross the legs, do not sleep on side -patient should use arms to get out of chair with extending the right hip and using the left hip to push out of the chair with assistance of arms. Prior to discharge, her dressing was changed, incision clean dry and intact, new Aquacel dressing applied. The Aquacel dressing should remain intact and dry at all times. Any concerns with the dressing, please contact orthopedic office. No showering. The plan is to be discharged * Follow up with [facility] [place] Orthopedics in 2 weeks: * 10/04/23 2:45 * [facility] [place] Orthopedic SurgeonsJazmyne Salguero PA-C Time Attestation Discharge coordination time: Less than 30 minutes Quality: Safe Use of Opioids Does Pt have an Active Cancer Diagnosis on the Problem List?: No Quality: Stroke Does the patient have a stroke diagnosis?: No Physical Exam Vital Signs: Vital Signs: Last Vital Signs Temp 98.3 F 09/20/23 03:34 Pulse 98 09/20/23 03:34 Resp 16 09/20/23 03:34 BP 117/58 L 09/20/23 03:34 Pulse Ox 95 09/20/23 03:34 O2 Del Method Room Air 09/20/23 03:34 O2 Flow Rate 2 09/18/23 17:00 BMI result Body Mass Index 45.0 DS: Data Data Completed and Pending Completed studies during hospitalization [Text1]: Procedures Removal of Internal Fixation Device from Right Upper Femur, Percutaneous Approach (02/21/23) Reposition Right Upper Femur with Intramedullary Internal Fixation Device, Percutaneous Approach (02/21/23) Pending studies at discharge: Pending at discharge 09/18/23 14:56 Surgical [PTH] Routine Labs on day of discharge: Laboratory Results - last 24 hr 09/19/23 09/19/23 09/20/23 06:28 21:08 06:23 WBC 11.5 H RBC 2.91 L D Hgb 8.2 L D Hct 26.1 L D MCV 89.7 MCH 28.2 MCHC 31.4 RDW 13.4 Plt Count 267 MPV 11.1 Immature Gran % (Auto) 0.5 H Neut % (Auto) 68.5 Lymph % (Auto) 19.3 L [place] % (Auto) 11.4 H Eos % (Auto) 0.0 Baso % (Auto) 0.3 Lymph # (Auto) 2.2 [place] # (Auto) 1.3 H Eos # (Auto) 0.0 Baso # (Auto) 0.0 Abs Immat Gran (auto) 0.06 H Absolute Neuts (auto) 7.9 Absolute Nucleated RBC 0.000 Nucleated RBC % (auto) 0.0 Sodium 136 136 Potassium 4.2 3.5 Chloride 104 102 Carbon Dioxide 26 27 Anion Gap 10 L 11 L BUN 14 12 Creatinine 0.77 0.70 Estim Creat Clear Calc 144.6 159.0 Estimated GFR > 60 > 60 Fasting Glucose 127 H 137 H Calcium 8.4 D 8.2 L Random Vancomycin 5.6 L Preliminary micro results at discharge 09/18/23 11:51 Anaerobic Culture - Preliminary Hip aspirate No growth to date. Joint Fluid Culture - Preliminary No growth after 1 day Discharge Plan Discharge Anticipated Discharge Date/Time: 09/24/23 15:37 Patient Disposition: Xfer SNF Discharge Diagnosis: s/p RT WILLIE Referrals: [facility] [Other] - 1 Week Jazmyne Salguero PA-C [Physician Boiling Tub Operator] - 2 Weeks (10/04/23 2:45 [facility] [place] Orthopedic Surgeons Jazmyne Salguero PA-C) Discharge Medications: New enoxaparin 40 mg/0.4 mL Syringe 40 mg subcut Q24H 42 Days Qty: 16.8 0RF oxycodone 5 mg Tablet 10 mg PO Q4H PRN (Reason: Pain, Moderate(Pain Scale 4-6)) 7 Days Qty: 42 0RF Rx Instructions: Partial Fill upon patient request. Continued (DME) walker Misc See Rx Instructions .MEDSUPPLY Qty: 1 0RF Rx Instructions: Folding Front wheeled walker (DME) SHOWER CHAIR See Rx Instructions .ROUTE .MEDSUPPLY Qty: 1 0RF Rx Instructions: As directed citalopram 40 mg tablet 40 mg PO DAILY trazodone 50 mg tablet 1 tab PO BEDTIME clonazepam 0.5 mg tablet 1 tab PO BID PRN (Reason: panic attack) buspirone 30 mg tablet 30 mg PO TID cyclobenzaprine 10 mg tablet 10 mg PO TID PRN (Reason: Muscle Spasm) gabapentin 300 mg capsule 300 mg PO TID docusate sodium 100 mg capsule 100 mg PO BID PRN (Reason: Constipation) albuterol sulfate [Ventolin HFA] 90 mcg/actuation HFA aerosol inhaler 1 inh inhalation Q4H PRN (Reason: shortness of breath or wheezing) cholecalciferol (vitamin D3) 25 mcg (1,000 unit) Tablet 25 mcg PO DAILY celecoxib 200 mg Capsule 200 mg PO BID 30 Days Qty: 60 0RF acetaminophen 325 mg Tablet 650 mg PO Q6H PRN (Reason: Pain, Mild (Pain Scale 1-3)) Qty: 240 0RF oxycodone 5 mg Tablet 10 mg PO Q4H PRN (Reason: Pain, Moderate(Pain Scale 4-6)) 7 Days Qty: 42 0RF Rx Instructions: Partial Fill upon patient request. methadone 5 mg/5 mL solution 85 mg PO DAILY Discharge Orders: Discharge Order (Routine); Ordered 09/25/23 Ordered By: Ta-Salena Meuse Diet: Regular diet Activity on Discharge: Use cane or walker Stand Alone Forms: Patient Portal Discharge page Care Plan Goals: Restore function of joint Health Concerns: Prevent dislocation Plan of Treatment: * Physical Therapy for Total hip arthroplasty: Partial weight bearing ( 50%) , Severe posterior precautions, gait training, ROM, strength * Limit stair climbing * No showering, no tub bath-keep dressing clean, dry and intact * No driving x6 weeks * Continue lovenox once a day x 6 weeks * Follow up with [facility] [place] Orthopedics in 2 weeks: 10/04/23 2:45 [facility] [place] Orthopedic SurgeonsJazmyne Salguero PA-C Assessment: Physical Therapy Pain management DVT prophylaxis
[2023-09-20 07:38] LABS: Hemoglobin 6.7 g/dl (12.0-16.0)
[2023-09-20 07:39] LABS: Hematocrit 20.8 % (37.0-47.0)
[2023-09-20 08:41] LABS: Hemoglobin 6.7 g/dl (12.0-16.0)
[2023-09-20 08:42] LABS: Hematocrit 20.7 % (37.0-47.0)
[2023-09-20] MEDS: busPIRone HCl 10 MG TABLET 30 MG PO ×3 (08:42→20:31)
[2023-09-20] MEDS: Docusate Sodium 100 MG CAPSULE PO ×2 (08:43→20:30)
[2023-09-20] MEDS: methADONE HCl 20 MG/2 ML ORAL.CONC 85 MG PO (08:43)
[2023-09-20] MEDS: Celecoxib 200 MG CAPSULE PO ×2 (08:43→20:30)
[2023-09-20] MEDS: Gabapentin 300 MG CAPSULE PO ×3 (08:43→20:30)
[2023-09-20] MEDS: Escitalopram Oxalate 20 MG TABLET PO (08:43)
--- NOTE | 2023-09-20 08:56 | PM.PNORT ---
Subjective Subjective Date of Service: 09/20/23 Interval history: POD2 s/p right hip removal of orthopedic hardware and total hip arthroplasty Patient is resting in bed comfortably No overnight events Pain is managed --she c/o dizziness No additional complaints Physical Exam Vital Signs: Vital Signs: Last Vital Signs Temp 99.2 F 09/20/23 07:25 Pulse 98 09/20/23 07:25 Resp 18 09/20/23 07:25 BP 107/68 09/20/23 08:48 Pulse Ox 95 09/20/23 07:25 O2 Del Method Room Air 09/20/23 07:25 O2 Flow Rate 2 09/18/23 17:00 BMI result Body Mass Index 45.0 Const: General: cooperative, healthy appearing and no acute distress Resp: Effort & Inspection: normal respiratory effort and able to speak in complete sentences Cardio: Rate: regular rate Peripheral pulses: Peripheral pulses 2+ throughout GI: Palpation (GI): Soft to palpation Skin: Lesions: no lesions Rashes: no rashes Extrem: Other: right hip dressing is c/d/i. Able to dorsi/plantar flex. Calf is supple and nontender. Sensation intact. Pedal pulse intact. CARINA device fxning properly with appropriate pressure Procedures Date of Service Date of Service: 09/20/23 Progress Note: A&P Assessment and plan (1) Morbid obesity with BMI of 45.0-49.9, adult: Status: Acute Assessment and Plan: Continue pain mgmnt Lovenox for dvt ppx --2 units PRBCs-monitor h/h begin PT for RTHA - Strict hip precautions, if unable to follow will need abduction pillow, Partial WB Dispo planning-Pending PT eval, pain mgmnt Continued hospitalization needed for pain management, blood transfusion and physical therapy (2) S/P total right hip arthroplasty: Status: Acute (3) History of femur fracture: Status: Acute (4) Polysubstance abuse: Status: Acute Time Spent With Patient Time: Total time managing care of this patient today ____ minutes. Quality Stroke Does the patient have a stroke diagnosis?: No VTE Prior VTE?: No VTE Risk Level:: Medical - moderate - high VTE Device Contraindication: N/A - Device Ordered VTE Drug Contraindication: N/A - Med Ordered
[2023-09-20] MEDS: clonazePAM 0.5 MG TABLET PO (10:36)
[2023-09-20] MEDS: oxyCODONE HCl ER 10 MG TAB.ER.12H PO ×2 (10:40→20:30)
[2023-09-20] MEDS: Enoxaparin Sodium 40 MG/0.4 ML SYRINGE SUBCUT (15:11)
[2023-09-20] MEDS: 0.9 % Sodium Chloride Flush 3 ML SYRINGE IVFLUSH ×2 (16:06→20:31)
[2023-09-20] MEDS: traZODone HCL 50 MG TABLET PO (20:30)
[2023-09-20] MEDS: Nystatin Powder 15 GM BOTTLE 1 APPL TOPICAL (20:31)
[2023-09-20 22:13] LABS: Vancomycin Random 9.1 mcg/mL (15-20)
[2023-09-21] MEDS: HYDROmorphone HCl 0.5 MG/0.5 ML SYRINGE IVPUSH ×6 (00:33→17:49)
--- NOTE | 2023-09-21 03:07 | PC.NURSE ---
This nurse educated pt about Strict hip precautions, if unable to follow will need abduction pillow, encourage patients to?avoid bending at the hip past 90?, twisting their leg in or out, and crossing their legs. Patients are also encouraged to sit with their hips higher than their knees, and sleep on their back with a pillow between their legs. pt understands it and verbalized it. provided education paper to read. will continue monitor.
[2023-09-21 03:57] VITALS: BP 111/52; PULSE 86; RESP 16; TEMP 36.7; O2SAT 94
[2023-09-21] MEDS: oxyCODONE HCl Immed Release 5 MG TABLET 10 MG PO ×4 (06:50→21:04)
[2023-09-21 07:57] VITALS: BP 131/60; PULSE 98; RESP 18; TEMP 36.9; O2SAT 98
[2023-09-21] MEDS: busPIRone HCl 10 MG TABLET 30 MG PO ×3 (08:26→21:04)
[2023-09-21] MEDS: clonazePAM 0.5 MG TABLET PO ×2 (08:26→21:04)
[2023-09-21] MEDS: Docusate Sodium 100 MG CAPSULE PO ×2 (08:26→21:04)
[2023-09-21] MEDS: Escitalopram Oxalate 20 MG TABLET PO (08:26)
[2023-09-21] MEDS: Gabapentin 300 MG CAPSULE PO ×3 (08:26→21:04)
[2023-09-21] MEDS: Celecoxib 200 MG CAPSULE PO ×2 (08:26→21:04)
[2023-09-21] MEDS: methADONE HCl 20 MG/2 ML ORAL.CONC 85 MG PO (08:27)
[2023-09-21] MEDS: 0.9 % Sodium Chloride Flush 3 ML SYRINGE IVFLUSH ×3 (08:27→21:05)
[2023-09-21] MEDS: Nystatin Powder 15 GM BOTTLE 1 APPL TOPICAL ×2 (08:38→21:10)
[2023-09-21 09:50] LABS: Basophils Absolute Auto 0.1 X10*3/uL (0.0-0.2); Basophils Percent Auto 0.8 % (0-2); Eosinophils Absolute Auto 0.3 X10*3/uL (0.0-0.4); Eosinophils Percent Auto 2.5 % (0-4); Hematocrit 25.4 % (37.0-47.0); Hemoglobin 8.4 g/dl (12.0-16.0); Imm Gran Abs Auto 0.15 X10*3/uL (0.00-0.03); Imm Gran Pct Auto 1.5 % (0.0-0.4); Lymphocytes Absolute Auto 2.2 X10*3/uL (1.2-4.9); Lymphocytes Percent Auto 22.1 % (20-40); MANUAL DIFF FLAG SCAN; Mean Corpuscular HGB Conc 33.1 g/dl (31.0-35.0); Mean Corpuscular Hemoglobin 29.3 pg (27.0-33.0); Mean Corpuscular Volume 88.5 fL (80.0-98.0); Mean Platelet Volume 11.2 fL (9.4-12.3); Monocytes Absolute Auto 0.7 X10*3/uL (0.1-1.2); Monocytes Percent Auto 7.4 % (2-11); NRBC Pct Auto 0.6 /100WBC (0.0-0.2); Neutrophils Absolute Auto 6.5 x10*3/uL (2.0-8.3); Neutrophils Percent Auto 65.7 % (45-73); PLT CLUMP 1; Red Blood Count 2.87 X10*6/uL (4.20-5.50); Red Cell Distribution Width 13.9 % (11.0-16.0); SCAN SMEAR FLAG 1
[2023-09-21] MEDS: oxyCODONE HCl ER 10 MG TAB.ER.12H PO ×2 (09:56→21:04)
[2023-09-21 10:05] LABS: Anion Gap 14 (12-20); Blood Urea Nitrogen 11 mg/dL (9-16); Calcium 8.6 mg/dL (8.4-10.2); Carbon Dioxide 25 mmol/L (22-29); Chloride 103 mmol/L (96-108); Creatinine Clr Calc Pharmacy 150.5; Estimated Glomerular Filt Rate > 60; Glucose Fasting 174 mg/dL (60-99); Potassium 3.9 mmol/L (3.3-5.1); Sodium 138 mmol/L (135-145)
[2023-09-21 10:28] LABS: Platelet Count 185 X10*3/uL (160-400); White Blood Count 9.9 X10*3/uL (4.8-10.8)
[2023-09-21 10:32] LABS: SLIDE REVIEW VERIFIED
[2023-09-21 10:58] VITALS: BP 131/60; PULSE 98; O2SAT 98
--- NOTE | 2023-09-21 12:12 | MHC.CM.PN ---
pt can not return to [facility] till mon whenthey will take her back as long as the dc summary and last dose letter are faxed to adren at [facility] in the morning fax number is [phone]
--- NOTE | 2023-09-21 12:20 | PM.PNORT ---
Subjective Subjective Date of Service: 09/21/23 Interval history: POD3 s/p right hip removal of orthopedic hardware and total hip arthroplasty Patient is resting in bed comfortably No overnight events Pain is managed , dizziness resolved No additional complaints Physical Exam Vital Signs: Vital Signs: Last Vital Signs Temp 98.5 F 09/21/23 07:57 Pulse 98 09/21/23 10:58 Resp 18 09/21/23 07:57 BP 131/60 09/21/23 10:58 Pulse Ox 98 09/21/23 10:58 O2 Del Method Room Air 09/21/23 07:57 O2 Flow Rate 2 09/18/23 17:00 BMI result Body Mass Index 45.0 Const: General: cooperative, healthy appearing and no acute distress Resp: Effort & Inspection: normal respiratory effort and able to speak in complete sentences Cardio: Rate: regular rate Peripheral pulses: Peripheral pulses 2+ throughout GI: Palpation (GI): Soft to palpation Skin: Lesions: no lesions Rashes: no rashes Extrem: Other: right hip dressing is c/d/i. Able to dorsi/plantar flex. Calf is supple and nontender. Sensation intact. Pedal pulse intact. CARINA device fxning properly with appropriate pressure Procedures Date of Service Date of Service: 09/21/23 Progress Note: A&P Assessment and plan (1) Morbid obesity with BMI of 45.0-49.9, adult: Status: Inactive Assessment and Plan: Continue pain mgmnt Lovenox for dvt ppx --2 units PRBC 09/20/23-h/h stable begin PT for RTHA - Strict hip precautions, if unable to follow will need abduction pillow, Partial WB Dispo planning-Pending PT eval, pain mgmnt Continued hospitalization needed for rehab placement-pending methadone verication (2) S/P total right hip arthroplasty: Status: Acute (3) History of femur fracture: Status: Inactive (4) Polysubstance abuse: Status: Inactive Time Spent With Patient Time: Total time managing care of this patient today ____ minutes. Quality Stroke Does the patient have a stroke diagnosis?: No VTE Prior VTE?: No VTE Risk Level:: Medical - moderate - high VTE Device Contraindication: N/A - Device Ordered VTE Drug Contraindication: N/A - Med Ordered
[2023-09-21] MEDS: Enoxaparin Sodium 40 MG/0.4 ML SYRINGE SUBCUT (14:44)
[2023-09-21 16:00] VITALS: BP 131/71; PULSE 95; RESP 18; TEMP 36.8; O2SAT 97
[2023-09-21] MEDS: Acetaminophen 325 MG TABLET 650 MG PO (17:03)
[2023-09-21 19:29] VITALS: BP 156/74; PULSE 94; RESP 18; TEMP 36.7; O2SAT 96
[2023-09-21] MEDS: traZODone HCL 50 MG TABLET PO (21:04)
[2023-09-22] MEDS: HYDROmorphone HCl 0.5 MG/0.5 ML SYRINGE IVPUSH ×6 (00:50→19:37)
[2023-09-22 04:00] VITALS: BP 119/78; PULSE 74; RESP 18; TEMP 36.2; O2SAT 98
[2023-09-22 06:00] LABS: Creatinine Clr Calc Pharmacy 171.3; Estimated Glomerular Filt Rate > 60
[2023-09-22 08:00] VITALS: BP 120/68; PULSE 84; RESP 16; TEMP 36.1; O2SAT 96
[2023-09-22] MEDS: methADONE HCl 20 MG/2 ML ORAL.CONC 85 MG PO (08:52)
[2023-09-22] MEDS: 0.9 % Sodium Chloride Flush 3 ML SYRINGE IVFLUSH ×3 (08:53→19:37)
[2023-09-22] MEDS: Gabapentin 300 MG CAPSULE PO ×3 (08:54→21:39)
[2023-09-22] MEDS: busPIRone HCl 10 MG TABLET 30 MG PO ×3 (08:54→21:39)
[2023-09-22] MEDS: Docusate Sodium 100 MG CAPSULE PO ×2 (08:54→21:39)
[2023-09-22] MEDS: Escitalopram Oxalate 20 MG TABLET PO (08:54)
[2023-09-22] MEDS: Celecoxib 200 MG CAPSULE PO ×2 (08:54→21:39)
[2023-09-22] MEDS: oxyCODONE HCl ER 10 MG TAB.ER.12H PO ×2 (08:54→21:39)
[2023-09-22] MEDS: Nystatin Powder 15 GM BOTTLE 1 APPL TOPICAL ×2 (09:01→21:47)
[2023-09-22] MEDS: clonazePAM 0.5 MG TABLET PO (10:11)
[2023-09-22] MEDS: Acetaminophen 325 MG TABLET 650 MG PO (10:11)
[2023-09-22] MEDS: oxyCODONE HCl Immed Release 5 MG TABLET 10 MG PO ×2 (10:11→14:19)
[2023-09-22] MEDS: Enoxaparin Sodium 40 MG/0.4 ML SYRINGE SUBCUT (14:19)
[2023-09-22 15:38] LABS: MANUAL DIFF FLAG NO
[2023-09-22] MEDS: Acetaminophen 1,000 MG/100 ML PIGGYBACK 400 MG IV ×2 (15:45→21:40)
[2023-09-22 15:47] VITALS: BP 103/61; PULSE 77; RESP 16; TEMP 36.3; O2SAT 97
[2023-09-22 15:50] LABS: Basophils Absolute Auto 0.1 X10*3/uL (0.0-0.2); Basophils Percent Auto 0.9 % (0-2); Eosinophils Absolute Auto 0.3 X10*3/uL (0.0-0.4); Eosinophils Percent Auto 4.2 % (0-4); Hematocrit 22.6 % (37.0-47.0); Hemoglobin 7.8 g/dl (12.0-16.0); Imm Gran Abs Auto 0.14 X10*3/uL (0.00-0.03); Imm Gran Pct Auto 1.9 % (0.0-0.4); Lymphocytes Absolute Auto 2.5 X10*3/uL (1.2-4.9); Lymphocytes Percent Auto 33.1 % (20-40); Mean Corpuscular HGB Conc 34.5 g/dl (31.0-35.0); Mean Corpuscular Hemoglobin 29.5 pg (27.0-33.0); Mean Corpuscular Volume 85.6 fL (80.0-98.0); Mean Platelet Volume 10.6 fL (9.4-12.3); Monocytes Absolute Auto 0.6 X10*3/uL (0.1-1.2); Monocytes Percent Auto 7.8 % (2-11); NRBC Pct Auto 0.4 /100WBC (0.0-0.2); Neutrophils Absolute Auto 3.9 x10*3/uL (2.0-8.3); Neutrophils Percent Auto 52.1 % (45-73); Platelet Count 216 X10*3/uL (160-400); Red Blood Count 2.64 X10*6/uL (4.20-5.50); Red Cell Distribution Width 13.6 % (11.0-16.0); White Blood Count 7.4 X10*3/uL (4.8-10.8)
[2023-09-22 20:00] VITALS: BP 134/67; PULSE 104; RESP 18; TEMP 36.7; O2SAT 98
[2023-09-22] MEDS: traZODone HCL 50 MG TABLET PO (21:39)
[2023-09-23 00:46] VITALS: BP 117/64; PULSE 72; RESP 18; TEMP 36.4; O2SAT 98
[2023-09-23] MEDS: oxyCODONE HCl Immed Release 5 MG TABLET 10 MG PO ×2 (00:54→13:40)
[2023-09-23] MEDS: Acetaminophen 1,000 MG/100 ML PIGGYBACK 400 MG IV (04:23)
[2023-09-23] MEDS: HYDROmorphone HCl 0.5 MG/0.5 ML SYRINGE IVPUSH ×5 (04:23→20:59)
[2023-09-23 05:37] LABS: MANUAL DIFF FLAG NO
[2023-09-23 05:44] LABS: Basophils Percent Auto 0.8 % (0-2); Eosinophils Absolute Auto 0.3 X10*3/uL (0.0-0.4); Hematocrit 24.5 % (37.0-47.0); Hemoglobin 7.8 g/dl (12.0-16.0); Imm Gran Abs Auto 0.05 X10*3/uL (0.00-0.03); Lymphocytes Absolute Auto 2.1 X10*3/uL (1.2-4.9); Lymphocytes Percent Auto 40.1 % (20-40); Mean Corpuscular HGB Conc 31.8 g/dl (31.0-35.0); Mean Corpuscular Hemoglobin 28.4 pg (27.0-33.0); Mean Corpuscular Volume 89.1 fL (80.0-98.0); Mean Platelet Volume 10.2 fL (9.4-12.3); Monocytes Absolute Auto 0.5 X10*3/uL (0.1-1.2); Monocytes Percent Auto 9.5 % (2-11); Neutrophils Absolute Auto 2.3 x10*3/uL (2.0-8.3); Neutrophils Percent Auto 43.6 % (45-73); Platelet Count 237 X10*3/uL (160-400); Red Blood Count 2.75 X10*6/uL (4.20-5.50); Red Cell Distribution Width 13.5 % (11.0-16.0); White Blood Count 5.2 X10*3/uL (4.8-10.8)
[2023-09-23 05:56] LABS: Creatinine Clr Calc Pharmacy 166.2; Estimated Glomerular Filt Rate > 60
[2023-09-23 07:32] VITALS: BP 119/69; PULSE 80; RESP 16; TEMP 36.3; O2SAT 98
[2023-09-23] MEDS: Docusate Sodium 100 MG CAPSULE PO ×2 (08:18→21:53)
[2023-09-23] MEDS: Celecoxib 200 MG CAPSULE PO ×2 (08:18→20:59)
[2023-09-23] MEDS: 0.9 % Sodium Chloride Flush 3 ML SYRINGE IVFLUSH ×3 (08:18→21:00)
[2023-09-23] MEDS: methADONE HCl 20 MG/2 ML ORAL.CONC 85 MG PO (08:18)
[2023-09-23] MEDS: Gabapentin 300 MG CAPSULE PO ×3 (08:18→20:59)
[2023-09-23] MEDS: busPIRone HCl 10 MG TABLET 30 MG PO ×3 (08:18→20:59)
[2023-09-23] MEDS: oxyCODONE HCl ER 10 MG TAB.ER.12H PO ×2 (08:19→20:58)
[2023-09-23] MEDS: Escitalopram Oxalate 20 MG TABLET PO (08:19)
[2023-09-23] MEDS: Nystatin Powder 15 GM BOTTLE 1 APPL TOPICAL ×2 (08:20→21:02)
[2023-09-23 12:30] LABS: Iron 22 mcg/dL (30-160); Percent Iron Saturation 10 % (15-50); Total Iron Binding Capacity 212 mcg/dL (228-428); Unsaturated Iron Binding 190 ug/dL
[2023-09-23] MEDS: clonazePAM 0.5 MG TABLET PO (12:38)
--- NOTE | 2023-09-23 12:42 | PC.NURSE ---
Pt primary nurse asked this senior mortgage underwriter if I could medicate her with IVF and pain meds. Upon entering the room patient began vulgarities This is fucking philip garzon, I've been waitng for an hour for my klonopin. Pt encouraged not to use that lang to staff and to be respectful. Continues vulgarities and verbal abuse to staff. Asking what is causing her anxiety and she stated Nothing, i just have anxiety disorder. After starting IVF and IV pain meds, PO Klonopin was given per patient request. Pt continues to move her arm around and not keep still so she can receive her bolus. Stating you can't expect me to keep my arm still for an hour. I drink enough water. Primary nurse notfied and updated.
[2023-09-23] MEDS: Enoxaparin Sodium 40 MG/0.4 ML SYRINGE SUBCUT (13:40)
--- NOTE | 2023-09-23 13:52 | PM.PNORT ---
Subjective Subjective Date of Service: 09/23/23 Interval history: POD5 s/p right hip removal of orthopedic hardware and total hip arthroplasty Patient is resting in bed comfortably No overnight events Pain is managed , dizziness resolved No additional complaints Physical Exam Vital Signs: Vital Signs: Last Vital Signs Temp 97.3 F 09/23/23 07:32 Pulse 80 09/23/23 07:32 Resp 16 09/23/23 07:32 BP 119/69 09/23/23 07:32 Pulse Ox 98 09/23/23 07:32 O2 Del Method Room Air 09/23/23 07:32 O2 Flow Rate 2 09/18/23 17:00 BMI result Body Mass Index 45.0 Const: General: cooperative, healthy appearing and no acute distress Resp: Effort & Inspection: normal respiratory effort and able to speak in complete sentences Cardio: Rate: regular rate Peripheral pulses: Peripheral pulses 2+ throughout GI: Palpation (GI): Soft to palpation Skin: Lesions: no lesions Rashes: no rashes Extrem: Other: right hip dressing is c/d/i. Able to dorsi/plantar flex. Calf is supple and nontender. Sensation intact. Pedal pulse intact. CARINA device fxning properly with appropriate pressure Procedures Date of Service Date of Service: 09/23/23 Progress Note: A&P Assessment and plan (1) Morbid obesity with BMI of 45.0-49.9, adult: Status: Inactive Assessment and Plan: Continue pain mgmnt Lovenox for dvt ppx --2 units PRBC 09/20/23-h/h stable check iron levels begin PT for RTHA - Strict hip precautions, if unable to follow will need abduction pillow, Partial WB Dispo planning-Pending PT eval, pain mgmnt Continued hospitalization needed for rehab placement-pending methadone verication (2) S/P total right hip arthroplasty: Status: Acute (3) History of femur fracture: Status: Inactive (4) Polysubstance abuse: Status: Inactive Time Spent With Patient Time: Total time managing care of this patient today ____ minutes. Quality Stroke Does the patient have a stroke diagnosis?: No VTE Prior VTE?: No VTE Risk Level:: Medical - moderate - high VTE Device Contraindication: N/A - Device Ordered VTE Drug Contraindication: N/A - Med Ordered
[2023-09-23] MEDS: 0.9 % Sodium Chloride 1,000 ML 999 ML IV (15:00)
[2023-09-23 16:00] VITALS: BP 106/62; PULSE 75; RESP 16; TEMP 36.6; O2SAT 99
[2023-09-23 19:21] VITALS: BP 124/58; PULSE 89; RESP 14; TEMP 37.3; O2SAT 99
[2023-09-23] MEDS: traZODone HCL 50 MG TABLET PO (20:59)
[2023-09-24] VITALS (10 sets, daily range): BP systolic 106–137; BP diastolic 59–80; PULSE 77–92; RESP 16–18; TEMP 36–36.8; O2SAT 92–97
[2023-09-24] MEDS: HYDROmorphone HCl 0.5 MG/0.5 ML SYRINGE IVPUSH ×3 (02:30→17:54)
[2023-09-24 06:46] LABS: MANUAL DIFF FLAG NO
[2023-09-24 07:01] LABS: Basophils Absolute Auto 0.1 X10*3/uL (0.0-0.2); Basophils Percent Auto 1.1 % (0-2); Eosinophils Absolute Auto 0.2 X10*3/uL (0.0-0.4); Eosinophils Percent Auto 4.2 % (0-4); Hematocrit 22.1 % (37.0-47.0); Hemoglobin 7.2 g/dl (12.0-16.0); Imm Gran Abs Auto 0.07 X10*3/uL (0.00-0.03); Imm Gran Pct Auto 1.3 % (0.0-0.4); Lymphocytes Absolute Auto 2.1 X10*3/uL (1.2-4.9); Lymphocytes Percent Auto 38.8 % (20-40); Mean Corpuscular HGB Conc 32.6 g/dl (31.0-35.0); Mean Corpuscular Hemoglobin 29.1 pg (27.0-33.0); Mean Corpuscular Volume 89.5 fL (80.0-98.0); Mean Platelet Volume 10.4 fL (9.4-12.3); Monocytes Absolute Auto 0.5 X10*3/uL (0.1-1.2); Monocytes Percent Auto 9.6 % (2-11); Neutrophils Absolute Auto 2.5 x10*3/uL (2.0-8.3); Platelet Count 265 X10*3/uL (160-400); Red Blood Count 2.47 X10*6/uL (4.20-5.50); Red Cell Distribution Width 13.5 % (11.0-16.0); White Blood Count 5.4 X10*3/uL (4.8-10.8)
[2023-09-24 07:15] LABS: Creatinine Clr Calc Pharmacy 150.5; Estimated Glomerular Filt Rate > 60
[2023-09-24] MEDS: Docusate Sodium 100 MG CAPSULE PO ×2 (08:48→22:19)
[2023-09-24] MEDS: Escitalopram Oxalate 20 MG TABLET PO (08:48)
[2023-09-24] MEDS: busPIRone HCl 10 MG TABLET 30 MG PO ×3 (08:48→22:18)
[2023-09-24] MEDS: Gabapentin 300 MG CAPSULE PO ×3 (08:48→22:19)
[2023-09-24] MEDS: Celecoxib 200 MG CAPSULE PO ×2 (08:48→22:19)
[2023-09-24] MEDS: oxyCODONE HCl ER 10 MG TAB.ER.12H PO ×2 (08:49→22:19)
[2023-09-24] MEDS: methADONE HCl 20 MG/2 ML ORAL.CONC 85 MG PO (08:49)
[2023-09-24] MEDS: Nystatin Powder 15 GM BOTTLE 1 APPL TOPICAL ×2 (09:01→22:20)
[2023-09-24] MEDS: 0.9 % Sodium Chloride Flush 3 ML SYRINGE IVFLUSH (09:01)
--- NOTE | 2023-09-24 10:05 | PM.PNORT ---
Subjective Subjective Date of Service: 09/24/23 Interval history: POD6 s/p right hip removal of orthopedic hardware and total hip arthroplasty Patient is resting in bed comfortably No overnight events Pain is managed Complains of SOB and dizziness upon standing Physical Exam Vital Signs: Vital Signs: Last Vital Signs Temp 97.9 F 09/24/23 07:08 Pulse 87 09/24/23 07:08 Resp 18 09/24/23 07:08 BP 117/73 09/24/23 07:08 Pulse Ox 95 09/24/23 07:08 O2 Del Method Room Air 09/24/23 07:08 O2 Flow Rate 2 09/18/23 17:00 BMI result Body Mass Index 45.0 Const: General: cooperative, healthy appearing and no acute distress Resp: Effort & Inspection: normal respiratory effort and able to speak in complete sentences Cardio: Rate: regular rate Peripheral pulses: Peripheral pulses 2+ throughout GI: Palpation (GI): Soft to palpation Skin: Lesions: no lesions Rashes: no rashes Extrem: Other: right hip dressing is reinforced and intact. Able to dorsi/plantar flex. Calf is supple and nontender. Sensation intact. Pedal pulse intact. Procedures Date of Service Date of Service: 09/24/23 Progress Note: A&P Assessment and plan (1) S/P total right hip arthroplasty: Status: Acute (2) Femur fracture: Status: Acute (3) Morbid obesity with BMI of 45.0-49.9, adult: Status: Inactive Assessment and Plan: Continue pain mgmnt Lovenox for dvt ppx --2 units PRBC 09/20/23 - H/H trending down at 7.2/22.1 check iron levels - Per medicine recommendation iron supplementation added begin PT for RTHA - Strict hip precautions, if unable to follow will need abduction pillow, Partial WB Dispo planning-Pending PT eval, pain mgmnt Continued hospitalization needed for rehab placement-pending methadone verication, will need dressing change prior to d/c (4) History of femur fracture: Status: Inactive (5) Polysubstance abuse: Status: Inactive Time Spent With Patient Time: Total time managing care of this patient today ____ minutes. Quality Stroke Does the patient have a stroke diagnosis?: No VTE Prior VTE?: No VTE Risk Level:: Medical - moderate - high VTE Device Contraindication: N/A - Device Ordered VTE Drug Contraindication: N/A - Med Ordered
[2023-09-24] MEDS: Ferrous Sulfate 324 MG TABLET.DR PO (10:19)
[2023-09-24] MEDS: clonazePAM 0.5 MG TABLET PO ×2 (10:19→22:19)
[2023-09-24] MEDS: Enoxaparin Sodium 40 MG/0.4 ML SYRINGE SUBCUT (14:31)
[2023-09-24] MEDS: oxyCODONE HCl Immed Release 5 MG TABLET 10 MG PO ×3 (14:31→22:19)
--- NOTE | 2023-09-24 15:43 | MHC.CM.NN ---
pt was set to dc today dc cancelled as pt neede to get blood
[2023-09-24] MEDS: Acetaminophen 325 MG TABLET 650 MG PO (22:19)
[2023-09-24] MEDS: traZODone HCL 50 MG TABLET PO (22:19)
[2023-09-25] MEDS: Cyclobenzaprine HCl 10 MG TABLET PO (00:03)
[2023-09-25] MEDS: HYDROmorphone HCl 0.5 MG/0.5 ML SYRINGE IVPUSH ×2 (00:03→09:16)
[2023-09-25] MEDS: 0.9 % Sodium Chloride Flush 3 ML SYRINGE IVFLUSH ×2 (00:06→08:14)
[2023-09-25 04:00] VITALS: BP 139/78; PULSE 82; RESP 16; TEMP 36.1; O2SAT 97
[2023-09-25 06:17] LABS: MANUAL DIFF FLAG NO
[2023-09-25 06:45] LABS: Basophils Absolute Auto 0.1 X10*3/uL (0.0-0.2); Eosinophils Absolute Auto 0.3 X10*3/uL (0.0-0.4); Eosinophils Percent Auto 4.6 % (0-4); Hematocrit 28.3 % (37.0-47.0); Hemoglobin 9.5 g/dl (12.0-16.0); Imm Gran Abs Auto 0.05 X10*3/uL (0.00-0.03); Imm Gran Pct Auto 0.8 % (0.0-0.4); Lymphocytes Absolute Auto 2.4 X10*3/uL (1.2-4.9); Lymphocytes Percent Auto 39.9 % (20-40); Mean Corpuscular HGB Conc 33.6 g/dl (31.0-35.0); Mean Corpuscular Hemoglobin 30.1 pg (27.0-33.0); Mean Corpuscular Volume 89.6 fL (80.0-98.0); Mean Platelet Volume 10.1 fL (9.4-12.3); Monocytes Absolute Auto 0.6 X10*3/uL (0.1-1.2); Monocytes Percent Auto 9.9 % (2-11); Neutrophils Absolute Auto 2.7 x10*3/uL (2.0-8.3); Neutrophils Percent Auto 43.8 % (45-73); Platelet Count 266 X10*3/uL (160-400); Red Blood Count 3.16 X10*6/uL (4.20-5.50); Red Cell Distribution Width 13.2 % (11.0-16.0); White Blood Count 6.1 X10*3/uL (4.8-10.8)
[2023-09-25 07:30] VITALS: BP 131/80; PULSE 74; RESP 18; TEMP 36.8; O2SAT 97
[2023-09-25] MEDS: Docusate Sodium 100 MG CAPSULE PO (08:13)
[2023-09-25] MEDS: Celecoxib 200 MG CAPSULE PO (08:13)
[2023-09-25] MEDS: oxyCODONE HCl ER 10 MG TAB.ER.12H PO (08:13)
[2023-09-25] MEDS: methADONE HCl 20 MG/2 ML ORAL.CONC 85 MG PO (08:13)
[2023-09-25] MEDS: Escitalopram Oxalate 20 MG TABLET PO (08:14)
[2023-09-25] MEDS: Gabapentin 300 MG CAPSULE PO (08:14)
[2023-09-25] MEDS: busPIRone HCl 10 MG TABLET 30 MG PO (08:14)
[2023-09-25] MEDS: Ferrous Sulfate 324 MG TABLET.DR PO (08:14)
[2023-09-25] MEDS: clonazePAM 0.5 MG TABLET PO (08:29)
[2023-09-25] MEDS: Nystatin Powder 15 GM BOTTLE 1 APPL TOPICAL (09:21)
--- NOTE | 2023-11-13 09:57 | P.CDIM_ITS ---
PROVIDER RESPONSE TEXT: To clarify, the appropriate diagnosis supported by the clinical indicators: Acute blood loss anemia with baseline chronic anemia: Idiopathic QUERY TEXT: PHYSICIAN'S DOCUMENTATION REQUEST Date of Query: 09/25/2023 07:28 AM EST Patient Name: DANY LUCERO Admit Date: 09/18/2023 Dear Isidro Lynch, A review of the medical record indicates additional documentation may be needed. Please review below and update the documentation accordingly. Clinical Indicators: On 09/20/23, H&H 6.7/20.7 Per Orthopedic Progress Note 09/24/23: 2 units PRBC 09/20/23 - H/H trending down at 7.2/22.1. check iron levels - Per medicine recommendation iron supplementation added Based on the above, could you clarify which of the following is the most likely type of anemia you ar e evaluating, treating, and/or monitoring? Acute blood loss anemia Acute blood loss anemia with baseline chronic anemia (specify type) Anemia of chronic disease indicate if neoplastic disease, CKD, or other Chronic iron deficiency anemia due to blood loss Iron Deficiency Anemia Other (explain) Clinically unable to determine (explain) Thank you, Liat Arndt RN Use of terms such as suspected, likely, concern for, or probable (associated with a specific diagnosi s that is being evaluated, monitored, or treated as if it exists) are acceptable and can be coded in the inpatient se tting, when documented at the time of discharge. Please use your independent medical judgment in providing your response. THIS QUERY IS PART OF THE PERMANENT MEDICAL RECORD
== END 2023-09-25 12:35 | disposition skilled nursing facility (03) | DRG 522 ==
LOC: HO.SSSA 09:28 → HO.S3 16:45
PROVIDERS: Nurse Practitioner; Physician Assistant; Admitting Provider Orthopaedic Surgery; PCP Internal Medicine; Visit Provider Orthopaedic Surgery
PROC: 0SR903A Replacement of Right Hip Joint with Ceramic Synthetic Substitute, Uncemented, Open Approach (ICD-10-PCS; CPT 27130; principal; 2023-09-18 11:50)
PROC: 05HB33Z Insertion of Infusion Device into Right Basilic Vein, Percutaneous Approach (ICD-10-PCS; principal; 2023-09-19 16:30)
DX: S72.001K Fracture of unspecified part of neck of right femur, subsequent encounter for closed fracture with nonunion (principal); F11.20 Opioid dependence, uncomplicated; Z68.42 Body mass index [BMI] 45.0-49.9, adult; D62 Acute posthemorrhagic anemia; X58.XXXD Exposure to other specified factors, subsequent encounter; E66.01 Morbid (severe) obesity due to excess calories; F19.10 Other psychoactive substance abuse, uncomplicated; F31.9 Bipolar disorder, unspecified; Z79.899 Other long term (current) drug therapy
CPT/HCPCS: 36410; 36415; 72170; 80048; 80202; 81025; 82565; 83540; 85014; 85018; 85025; 86850; 86900; 86901; 86923; 87070; 87073; 87205; 88305; 88311; 89051; 93005; 94640; 97110; 97116; 97163; 97167; 97535; 99024; C1713; C1751; C1776; J0131; J1100; J1170; J1650; J1885; J2371; J2405; J2550; J2704; J2795; J3010; J3370; J3371; J7120; P9016

== ENCOUNTER → 2023-09-18 09:24 | Outpatient (BNV) | payer MEDICARE, MEDICAID, SELFPAY | PROVIDERS: Admitting Provider Orthopaedic Surgery; PCP Internal Medicine; Visit Provider Internal Medicine | DX: Z96.641 Presence of right artificial hip joint (principal); E66.01 Morbid (severe) obesity due to excess calories; Z68.42 Body mass index [BMI] 45.0-49.9, adult; F17.200 Nicotine dependence, unspecified, uncomplicated; F19.10 Other psychoactive substance abuse, uncomplicated | CPT/HCPCS: 99222; 99232 ==

== ENCOUNTER → 2023-09-18 09:24 | Outpatient (BNV) | payer MEDICARE, MEDICAID, SELFPAY | PROVIDERS: Admitting Provider Orthopaedic Surgery; PCP Internal Medicine; Visit Provider Orthopaedic Surgery | DX: Z96.641 Presence of right artificial hip joint (principal) | CPT/HCPCS: 27132; 99024 ==

== ENCOUNTER 2023-10-04 12:54 | Outpatient (REF) | payer OTHER, MEDICARE, MEDICAID, SELFPAY | END 2023-10-04 12:55 | disposition home or self-care (01) | LOC: HO.HOSX 12:54 | PROVIDERS: Visit Provider Physician Assistant | DX: Z47.1 Aftercare following joint replacement surgery (principal); Z96.641 Presence of right artificial hip joint | CPT/HCPCS: 73502; 99212 ==

== ENCOUNTER 2023-10-04 14:11 | Outpatient (AMB) | payer MEDICARE, MEDICAID, SELFPAY ==
--- NOTE | 2023-10-04 14:26 | MHC.OFFVIS ---
Intake Intake Visit Reasons: PO- RT WILLIE 09/18/23 NE Intake Note: Christine toussaint 33 year old female presents today for a post operative right WILLIE, DOS 09/18/23 NE. Patient reports she is doing well, states pain is improving daily. Allergies tramadol [Ultram] Allergy (Intermediate, Verified 10/04/23 14:32) rash acetaminophen [From TYLENOL] Adverse Reaction (Mild, Verified 10/04/23 14:32) STOMACH UPSET Medication List - Last Reconciled 10/05/23 by Jazmyne Salguero PA-C acetaminophen 650 mg (2 x 325 mg) PO Q6H PRN albuterol sulfate 90 mcg/actuation (Ventolin HFA) 1 inh inhalation Q4H PRN buspirone 30 mg PO TID celecoxib 200 mg PO BID 30 days cholecalciferol (vitamin D3) 25 mcg PO DAILY citalopram 40 mg PO DAILY clonazepam 1 tab PO BID PRN cyclobenzaprine 10 mg PO TID PRN docusate sodium 100 mg PO BID PRN enoxaparin 40 mg (0.4 mL) subcut Q24H 42 days gabapentin 300 mg PO TID methadone 85 mg PO DAILY oxycodone 10 mg (2 x 5 mg) PO Q4H PRN 7 days oxycodone 10 mg (2 x 5 mg) PO Q4H PRN 7 days [SHOWER CHAIR As directed] trazodone 1 tab PO BEDTIME walker Folding Front wheeled walker HPI PO- RT WILLIE 09/18/23 NE HPI Details 33-year-old female who returns to the office today for post-op right WILLIE 09/18/[address] Lynch. She states she has improvement in her pain and has been doing well overall. She has no other concerns today. [facility] Medical History Resides in nursing home facility Hepatitis C Depression with anxiety Asthma Hepatitis C antibody test positive Hx of hepatitis C Skin lesion of left arm Numerous moles Numbness and tingling of both upper extremities Suicide attempt Polysubstance abuse Bipolar 1 disorder Surgical History History of hip surgery (~02/27/23) History of hip surgery (12/30/22) Family History Father Sleep apnea Diabetes mellitus Diabetic neuropathy Mother Multiple sclerosis Colitis Fibromyalgia Maternal Grandfather CVD (cardiovascular disease) Kidney disease Heart disease Maternal Grandmother Lupus Arthritis Rheumatoid arthritis Paternal Grandfather No problems noted. Paternal Grandmother No problems noted. Brother No problems noted. Sister No problems noted. Son No problems noted. Son No problems noted. Social History Household Members: None Household Members Other:: currently in SNF for rehab-[facility] Housing: Senior Living Housing Other:: [facility] Are you a primary emergency care tech to a significant other at home: No Do you presently have visiting nurse or other home services: No Unable to assess alcohol history related to: Unknown Alcohol intake: former Comment: wheelchair due to prior hip surgeries Patient Tobacco Use Status: Current everyday Tobacco user Tobacco use type: Cigarette Cigarette Packs Per Day: 0.5 Cigarettes Per Day: 6 Years Smoked: 15 e-Cigarette/Vaping Use: Never Used Second Hand Smoke Exposure: No Substance Use Type: Marijuana Advance Directives Date on File: 02/22/23 service: No Current occupational status: unemployed and disabled Review of Systems Const All systems reviewed & are unremarkable except as noted in HPI and below Physical Exam Extrem Other: Right hip: Incision clean, dry and intact. No erythema, mild swelling. NVI. Results Reviewed Results Reviewed: Xrays were obtained in the office today and personally reviewed by me of the right hip show intact prosthesis Assessment & Plan Assessment & Plan (1) S/P total right hip arthroplasty: Code(s): Z96.641 - Presence of right artificial hip joint Plan Blade removed, steri strips applied. She will continue with PT/Ot at rehab, PWB, working on Gait training, core, lumbar and glute/ quad strength. We reviewed posterior precautions. No driving for another 4 weeks. She will require ppx abx for dental procedures. She will f/u in 4 weeks, sooner if needed. Orders: Orders XR hip RT w [id number] 10/04/23 M25.559 - Pain in unspecified hip Patient Instructions: Scribed for Ta-Salena Salguero PA-C, by Jaime Abhang, medical facilities section director, on 10/04/2023 at 2:45 PM Jazmyne GIRON PA-C, have personally reviewed and agree with the information entered by the scribe. Coding Level of Care Code Global (64095) Diagnoses S/P total right hip arthroplasty Z96.641
== END 2023-10-04 15:12 | disposition home or self-care (01) ==
PROVIDERS: PCP Internal Medicine; Visit Provider Physician Assistant
DX: Z96.641 Presence of right artificial hip joint (principal)
CPT/HCPCS: 99024

== ENCOUNTER 2023-11-01 11:36 | Outpatient (REF) | payer MEDICARE, MEDICAID, SELFPAY | END 2023-11-01 11:37 | disposition home or self-care (01) | LOC: HO.HOSX 11:36 | PROVIDERS: Visit Provider Orthopaedic Surgery | DX: Z13.89 Encounter for screening for other disorder (principal) ==

== ENCOUNTER 2023-11-05 11:36 | Outpatient (REF) | payer MEDICARE, MEDICAID, SELFPAY ==
--- NOTE | ~2023-11-05 | XR_ITS ---
EXAMINATION: XR PELVIS CLINICAL INFORMATION: Hip pain COMPARISON: None available. TECHNIQUE: AP view of the pelvis, 3 films. FINDINGS: Bony pelvis is intact. Visualized pedicles and SI joints within normal limits. Right total hip replacement prosthetic components appear appropriate in position with satisfactory alignment. Lateral left hip joint narrowing. Phleboliths. XR/XR pelvis 1-2V IMPRESSION: Right total hip replacement. Left lateral hip joint narrowing. No acute bony pathology.
== END 2023-11-05 11:37 | disposition home or self-care (01) ==
LOC: HO.HOSX 11:36
PROVIDERS: Visit Provider Orthopaedic Surgery
DX: M25.551 Pain in right hip (principal); Z47.1 Aftercare following joint replacement surgery; Z96.641 Presence of right artificial hip joint
CPT/HCPCS: 72170; 99212

== ENCOUNTER 2023-11-05 12:29 | Outpatient (AMB) | payer MEDICARE, MEDICAID, SELFPAY ==
--- NOTE | 2023-11-05 12:34 | A.OFFVIS_ITS ---
Intake Intake Visit Reasons: 6 wk PO- RT WILLIE 09/18/23 NE Intake Note: Christine is a 33 year old female who presents today for a post operative appointment s/p right WILLIE, DOS 09/18/23 NE. Patient reports that she is doing well, she has some mild pain but doing overall well. Allergies tramadol [Ultram] Allergy (Intermediate, Verified 10/04/23 14:32) rash acetaminophen [From TYLENOL] Adverse Reaction (Mild, Verified 10/04/23 14:32) STOMACH UPSET HPI 6 wk PO- RT WILLIE 09/18/23 NE HPI Details Christine is a 33 year old woman ~6 weeks S/p right WILLIE. She says she is doing well and her pain is improving. She has been attending PT and is happy with the results of her surgery. [facility] Medical History Resides in detention facility Hepatitis C Depression with anxiety Asthma Hepatitis C antibody test positive Hx of hepatitis C Skin lesion of left arm Numerous moles Numbness and tingling of both upper extremities Suicide attempt Polysubstance abuse Bipolar 1 disorder Surgical History History of hip surgery (~02/27/23) History of hip surgery (12/30/22) Family History Father Sleep apnea Diabetes mellitus Diabetic neuropathy Mother Multiple sclerosis Colitis Fibromyalgia Maternal Grandfather CVD (cardiovascular disease) Kidney disease Heart disease Maternal Grandmother Lupus Arthritis Rheumatoid arthritis Paternal Grandfather No problems noted. Paternal Grandmother No problems noted. Brother No problems noted. Sister No problems noted. Son No problems noted. Son No problems noted. Social History Household Members: None Household Members Other:: currently in SNF for rehab-[facility] Housing: Senior Living Housing Other:: [facility] Are you a primary child adolescent care to a significant other at home: No Do you presently have visiting nurse or other home services: No Unable to assess alcohol history related to: Unknown Alcohol intake: former Comment: wheelchair due to prior hip surgeries Patient Tobacco Use Status: Current everyday Tobacco user Tobacco use type: Cigarette Cigarette Packs Per Day: 0.5 Cigarettes Per Day: 6 Years Smoked: 15 e-Cigarette/Vaping Use: Never Used Second Hand Smoke Exposure: No Substance Use Type: Marijuana Advance Directives Date on File: 02/22/23 service: No Current occupational status: unemployed and disabled Review of Systems Const All systems reviewed & are unremarkable except as noted in HPI and below Physical Exam Const General: no acute distress, alert and awake Orientation/consciousness: patient oriented x3 HEENT Head: Yes normocephalic and Yes atraumatic Eyes EOM: EOMs intact bilaterally Resp Effort & Inspection: normal respiratory effort and able to speak in complete sentences Cardio Jugular venous distension: no JVD Skin General skin exam: turgor normal Rashes: no rashes Neuro General: patient oriented x3 Extrem Other: no pain with hip rom walking comfortably with a walker Psych Appearance: grossly normal Affect: normal affect Attitude: cooperative Results Reviewed Results Reviewed: I personally reviewed relevant radiographs. Right WILLIE in expected post operative position with no hardware complications or evidence of loosening Assessment & Plan Assessment & Plan (1) S/P total right hip arthroplasty: Code(s): Z96.641 - Presence of right artificial hip joint Plan: Doing well Caution with activity but improving. Continue PT and ambulation with walker F/u 6 weeks Plan Prepared for Isidro Lynch MD by Adam Foley, biomedical engineering professor, on 11/05/23 at 12:38 PM, EST. Orders: Orders XR pelvis 1-2V 11/05/23 M25.559 - Pain in unspecified hip Coding Level of Care Code Global (18744) Diagnoses S/P total right hip arthroplasty Z96.641
== END 2023-11-05 12:57 | disposition home or self-care (01) ==
PROVIDERS: PCP Internal Medicine; Visit Provider Orthopaedic Surgery
DX: Z96.641 Presence of right artificial hip joint (principal)
CPT/HCPCS: 99024

== ENCOUNTER 2023-12-20 12:33 | Outpatient (REF) | payer OTHER, SELFPAY ==
--- NOTE | ~2023-12-20 | XR_ITS ---
EXAMINATION: XR PELVIS CLINICAL INFORMATION: Pain in unspecified hip. COMPARISON: 11/05/2023 AP views of the pelvis and prior. TECHNIQUE: 2 AP views of the pelvis. FINDINGS: Redemonstration of right hip total arthroplasty and components appear in satisfactory position. Degenerative changes with lateral narrowing at the left hip joint. Rounded pelvic calcifications are likely vascular. Degenerative changes in the imaged lower lumbar spine. Bilateral sacroiliac joints are symmetric. XR/XR pelvis 1-2V IMPRESSION: 1. Redemonstration of right hip total arthroplasty and components appear in satisfactory position. 2. Degenerative changes with lateral narrowing at the left hip joint.
== END 2023-12-20 12:34 | disposition home or self-care (01) ==
LOC: HO.HOSX 12:33
PROVIDERS: Visit Provider Orthopaedic Surgery
DX: M25.551 Pain in right hip (principal); Z47.1 Aftercare following joint replacement surgery; Z96.641 Presence of right artificial hip joint
CPT/HCPCS: 72170; 99212

== ENCOUNTER 2023-12-20 14:04 | Outpatient (AMB) | payer OTHER, SELFPAY ==
--- NOTE | 2023-12-20 14:17 | MHC.OFFVIS ---
Intake Intake Visit Reasons: 6 wk PO- RT WILLIE 09/18/23 NE Intake Note: Christine is a 33 year old female who presents today for a post operative appointment s/p right WILLIE, DOS 09/18/23 NE. Patient reports that she had injured the left knee about a week prior to being discharged from [facility]. While she was in bed she went to turn onto her side and the knee twisted and popped loudly. She explains that she now has to rely on a knee that is not stable. She does note that the hip has been feeling better but the knee is really impacting her mobility. She explains that she is having at home PT and is not ready for out patient threapy. Allergies tramadol [Ultram] Allergy (Intermediate, Verified 10/04/23 14:32) rash acetaminophen [From TYLENOL] Adverse Reaction (Mild, Verified 10/04/23 14:32) STOMACH UPSET [facility] Medical History Resides in detention facility Hepatitis C Depression with anxiety Asthma Hepatitis C antibody test positive Hx of hepatitis C Skin lesion of left arm Numerous moles Numbness and tingling of both upper extremities Suicide attempt Polysubstance abuse Bipolar 1 disorder Surgical History History of hip surgery (~02/27/23) History of hip surgery (12/30/22) Family History Father Sleep apnea Diabetes mellitus Diabetic neuropathy Mother Multiple sclerosis Colitis Fibromyalgia Maternal Grandfather CVD (cardiovascular disease) Kidney disease Heart disease Maternal Grandmother Lupus Arthritis Rheumatoid arthritis Paternal Grandfather No problems noted. Paternal Grandmother No problems noted. Brother No problems noted. Sister No problems noted. Son No problems noted. Son No problems noted. Social History Household Members: None Household Members Other:: currently in SNF for rehab-[facility] Nursing [facility] Housing: Snf Housing Other:: [facility] Are you a primary career advisor to a significant other at home: No Do you presently have visiting nurse or other home services: No Unable to assess alcohol history related to: Unknown Alcohol intake: former Comment: wheelchair due to prior hip surgeries Patient Tobacco Use Status: Current everyday Tobacco user Tobacco use type: Cigarette Cigarette Packs Per Day: 0.5 Cigarettes Per Day: 6 Years Smoked: 15 e-Cigarette/Vaping Use: Never Used Second Hand Smoke Exposure: No Substance Use Type: Marijuana Advance Directives Date on File: 02/22/23 service: No Current occupational status: unemployed and disabled Physical Exam Extrem Other: No hip pain with hip ROM Left knee with lateralized patella and retropatellar ttp Poor gait mechanics with right thigh pain and left knee pain when not using cane Results Reviewed Results Reviewed: I personally reviewed relevant radiographs. Right WILLIE in expected post operative position with no hardware complications or evidence of loosening Assessment & Plan Assessment & Plan (1) S/P total right hip arthroplasty: Code(s): Z96.641 - Presence of right artificial hip joint Plan: Right hip continues to improve. Decreasing but present thigh pain. No groin pain wiht hip ROM Outpatient PT Worked on gait mechanics with patient today f/u 3 months WBAT with assistive device if pain present Orders: Orders XR pelvis 1-2V Today M25.559 - Pain in unspecified hip Coding Level of Care Code Global (76370) Diagnoses S/P total right hip arthroplasty Z96.641
== END 2023-12-20 15:11 | disposition home or self-care (01) ==
PROVIDERS: PCP Internal Medicine; Visit Provider Orthopaedic Surgery
DX: Z47.1 Aftercare following joint replacement surgery (principal); Z96.641 Presence of right artificial hip joint
CPT/HCPCS: 99213

== ENCOUNTER 2024-02-01 07:55 | Outpatient (AMB) | payer OTHER, SELFPAY ==
--- NOTE | 2024-02-01 08:01 | A.OFFPC_ITS ---
Vital Signs 02/01/24 08:03 Height 5 ft 8 in Weight 284 lb BMI 43.2 BP 108/70 Blood Pressure Location Rt brachial Position Sitting Pulse 66 Pulse Source Pulse Oximeter Pulse Oximetry (%) 99 Oxygen Delivery Method Room Air Intake Visit Reasons: est care Intake Note: Patient here to establish care. Is last menstrual period known: Yes Last menstrual period: 01/26/24 Post menopausal: No Patient : No Allergies tramadol [Ultram] Allergy (Intermediate, Verified 02/01/24 08:17) rash acetaminophen [From TYLENOL] Adverse Reaction (Mild, Verified 02/01/24 08:17) STOMACH UPSET Medication List - Last Reconciled 02/01/24 by ALEXA Elias albuterol sulfate 90 mcg/actuation (Ventolin HFA) 1 inh inhalation Q4H PRN buspirone 30 mg PO TID [Cane As directed] cholecalciferol (vitamin D3) 25 mcg PO DAILY citalopram 40 mg PO DAILY clonazepam 1 tab PO BID PRN [Crutches As directed] docusate sodium 100 mg PO BID PRN gabapentin 300 mg PO TID methadone 85 mg PO DAILY [SHOWER CHAIR As directed] trazodone 1 tab PO BEDTIME walker Folding Front wheeled walker Tobacco use date assessed: 02/01/24 Dental Screening Dental Screen Date: 02/01/24 Did you have a dental visit in the last 12 months?: No Did you have a dental problem in the last 6 months where you did not have access to dental care?: No Was dental information given to patient?: Patient has dentist HPI HPI Comments History of Present Illness Details Patient is a 33-year-old female who I am meeting for the 1st time. Patient has a past medical history significant for depression anxiety, past opioid dependence, nicotine dependence, reactive airway disease. Patient also has history of right hip replacement, and right femur surgery. Patient is currently undergoing physical therapy and is being seen by Ortho. Patient has established psychiatrist. Denies SI/HI visit Patient is due for Pap smear, will refer to OBGYN. Patient would like assistance with nicotine cessation today's appointment. Patient has 1/2 pack per day smoker for the past 15 years. Would like to try nicotine replacement therapy, will prescribe nicotine patch. Patient will also meet with in office community navigator to assist with other techniques in smoking cessation. Patient is due for fasting labs, will order. [facility] Medical History (Updated 02/01/24 @ 09:33 by ALEXA Elias) Femur fracture Morbid obesity with BMI of 45.0-49.9, adult History of femur fracture Smoker Resides in halfway facility Hepatitis C Depression with anxiety Asthma Hepatitis C antibody test positive Hx of hepatitis C Skin lesion of left arm Numerous moles Numbness and tingling of both upper extremities Suicide attempt Polysubstance abuse Bipolar 1 disorder Surgical History History of right hip replacement History of hip surgery (~02/27/23) History of hip surgery (12/30/22) Family History Father Sleep apnea Diabetes mellitus Diabetic neuropathy Mother Multiple sclerosis Colitis Fibromyalgia Maternal Grandfather CVD (cardiovascular disease) Kidney disease Heart disease Maternal Grandmother Lupus Arthritis Rheumatoid arthritis Paternal Grandfather No problems noted. Paternal Grandmother No problems noted. Brother No problems noted. Sister No problems noted. Son No problems noted. Son No problems noted. Social History Household Members: None Household Members Other:: currently in SNF for rehab-[facility] Housing: House Housing Other:: [facility] Are you a primary care manager to a significant other at home: No Do you presently have visiting nurse or other home services: No Unable to assess alcohol history related to: Unknown Alcohol intake: former Comment: wheelchair due to prior hip surgeries Patient Tobacco Use Status: Current everyday Tobacco user Tobacco use type: Cigarette Cigarette Packs Per Day: 0.5 Cigarettes Per Day: 6 Years Smoked: 15 e-Cigarette/Vaping Use: Never Used Second Hand Smoke Exposure: No Substance Use Type: Marijuana Advance Directives Date on File: 02/22/23 service: No Current occupational status: unemployed and disabled Cognitive needs: No Hearing needs: No Vision needs: No Female Reproductive History Menstrual Date of last menstrual period: 01/26/24 Questionnaire PHQ-9 Over the last 2 weeks, how often have you been bothered by any of the following problems? 1. Little interest or pleasure in doing things: more than half the days 2. Feeling down, depressed, or hopeless: more than half the days 3. Trouble falling or staying asleep, or sleeping too much: more than half the days 4. Feeling tired or having little energy: more than half the days 5. Poor appetite or overeating: nearly every day 6. Feeling bad about yourself - or that you are a failure or have let yourself or your family down: more than half the days 7. Trouble concentrating on things, such as reading the newspaper or watching television: nearly every day 8. Moving or speaking so slowly that other people could have noticed. Or the opposite - being so fidgety or restless that you have been moving around a lot more than usual: nearly every day 9. Thoughts that you would be better off or of hurting yourself in some way: not at all Total score: 19 Depression Screening Interpretation: Positive (Currently followed by her psychiatrist nurse practitioner, Dorcas Rodriguez) Depression Screening Follow- up: Existing condition, In treatment and Community Mental Health Worker F/U Depression Screening Done: Yes 11478 - PHQ-9 Billing: Yes Source: Developed by Drs. Tariq Mazariegos, Joy Najera, Tarun Garcia and colleagues, with an educational abrahan from [employer]. Thrive Questionnaire Date Thrive assessed: 02/01/24 I am a: Patient What is your living situation today?: I have a steady place to live Within the past 12 months, did the food you bought not last and you didn't have the money to get more?: Sometimes True Within the past 12 months, did you worry whether your food would run out before you got money to buy more?: Sometimes True Do you have trouble paying for medicines?: No Do you have trouble getting transportation to medical appointments?: No Do you have trouble paying your heating and electricity bill?: No Do you have trouble taking care of your child, family member or friend?: No Do you have trouble with day-to-day activities such as bathing, preparing meals, shopping, managing finances, etc.?: Yes Are you currently unemployed and looking for a job?: No Are you interested in more education?: Yes Currently or been in a relationship where the following occur: I choose not to answer this question THRIVE Score: 2 AUDIT C Alcohol Use Questionnaire (AUDIT-C) 1. How often do you have a drink containing alcohol?: Never 3. How often do you have six or more drinks on one occasion?: Never Total Score: 0 Score Reviewed/Action Taken: No FARZAD-7 AMB Questionnaire FARZAD-7 Date FARZAD - 7 assessed: 02/01/24 Feeling nervous, anxious, or on edge: 2 = More than half the days Not being able to stop or control worryin = More than half the days Worrying too much about different things: 3 = Nearly every day Trouble relaxin = More than half the days Being so restless that it is hard to sit still: 3 = Nearly every day Becoming easily annoyed or irritable: 1 = Several days Feeling afraid as if something awful might happen: 2 = More than half the days Total FARZAD-7 score (0-4 normal; 5-9 mild; 10-14 moderate; 15-21 severe): 15 Source: Developed by Drs. Tariq Mazariegos, Joy Najera, Tarun Garcia and colleagues, with an educational abrahan from [employer]. FARZAD-7 Assessment Billing FARZAD-7 Assessment Tool: FARZAD-7 Assessment 68954 Review of Systems Const Details: Constitutional : No Weight loss, No Fever, No Chills, No Fatigue, No Malaise ENT/Mouth : No sore throat, No Rhinorrhea Eyes: No Eye Pain, No Swelling, No Redness Cardiovascular : No Chest Pain, No SOB, No Dyspnea on Exertion, No Orthopnea, No Edema, No Palpitations Respiratory : No Cough, No Sputum, No Wheezing Gastrointestinal : No Nausea, No Vomiting, No Diarrhea, No Constipation, No abdominal Pain, No Hematochezia, No Melena Genitourinary : No Dysuria, No Urinary Frequency, No Hematuria, Musculoskeletal : No joint pain, No Myalgias, No Joint Swelling Skin : No Skin Lesions, No rash Neuro : No Weakness, No Numbness, No Dizziness, No Headache Psych : No Anxiety/Panic, No Depression Heme/Lymph: No Bruising, No Bleeding,No Lymphadenopathy Endocrine : No Polyuria, No Polydipsia All other systems reviewed and are negative Physical exam (Primary Care) Vital Signs: Last Vital Signs Pulse 66 02/01/24 08:03 BP 108/70 02/01/24 08:03 Pulse Ox 99 02/01/24 08:03 Oxygen Delivery Method Room Air 02/01/24 08:03 Care Plan Goal for BP management: Vital signs reviewed stable BMI result Body Mass Index 43.2 Tobacco/Smoking Status: Tobacco use Status Tobacco use date assessed 02/01/24 02/01/24 08:10 Patient Tobacco Use Status Current everyday Tobacco 02/01/24 08:02 Tobacco use type Cigarette 02/01/24 08:02 e-Cigarette/Vaping Use Never Used 02/01/24 08:02 Are you ready to quit: Yes Tobacco cessation counseling provided: Yes Items discussed: Nicotine replacement and Other (Patient met with community navigator liaison) Relapse Prevention: discussed the importance of a supportive environment CPT code: 21878 - 4-10 Minutes PHQ-9: PHQ-9 Score PHQ-9: Total score 02/01/24 10:04 Depression Screening Interpretation: Positive (Currently followed by her psychiatrist nurse practitioner, Dorcas Rodriguez) Depression Screening Follow- up: Existing condition, In treatment and Community Mental Health Worker F/U Thrive Assessment: Date of Thrive Assessment Date Thrive assessed 02/01/24 02/01/24 10:04 Currently or been in a relationship where the following occur: I choose not to answer this question Const Other: Appearance: Alert.? Oriented X3.? No acute distress.? Head: Normocephalic, atraumatic, no step-offs or deformities Neck: Normal inspection.? Neck supple.? CVS: Normal heart rate and rhythm.? Pulses normal.? Respiratory: No respiratory distress.? Breath sounds normal.? Neuro: Oriented X 3.? CN 2-12 intact Patient is currently ambulating with crutches. Assessment and Plan Assessment & Plan (1) Nicotine dependence with current use: Comment: Patient will be started on nicotine replacement therapy, also met with community navigator to assist with smoking cessation therapy in techniques. Code(s): F17.200 - Nicotine dependence, unspecified, uncomplicated Plan: Take your medications as prescribed. If you were prescribed antibiotics today, it is important that you take your medication to their entirety, do not skip any doses, do not finish them early. Follow-up with your primary care provider this week. Return to the emergency department with new or worsening symptoms. Such as fevers, chills, chest pain, shortness of breath, nausea, vomiting, dizziness, headache, vision changes, lethargy In case of emergency call 911 Plan Patient will follow-up with physical exam in 3 months Orders: Orders Comprehensive Met. Panel 02/01/24 Z91.89 - Other specified personal risk factors, not elsewhere classified Complete Blood Count Auto Diff 02/01/24 Z13.0 - Encounter for screening for diseases of the blood and blood-forming organs and certain disorders involving the immune mechanism Vitamin D 25-OH (D2 and D3) 02/01/24 Z13.21 - Encounter for screening for nutritional disorder Vitamin B6 02/01/24 Z13.21 - Encounter for screening for nutritional disorder Vitamin B12 02/01/24 Z13.21 - Encounter for screening for nutritional disorder Hemoglobin A1c 02/01/24 Z13.1 - Encounter for screening for diabetes mellitus Lipid Panel 02/01/24 Z13.220 - Encounter for screening for lipoid disorders UA CC w/rflx Micro + Cult 02/01/24 Z13.89 - Encounter for screening for other disorder TSH reflex Free T4 02/01/24 Z13.29 - Encounter for screening for other suspected endocrine disorder Referrals [employer] MARKETING EXECUTIVE Referral Z12.4 - Encounter for screening for malignant neoplasm of cervix Medications: New docusate sodium 100 mg PO BID PRN 90 caps 0RF Constipation nicotine 1 patch transdermal Q24H 28 ea 0RF albuterol sulfate 90 mcg/actuation (Ventolin HFA) 1 inh inhalation Q4H PRN 8.5 grams 0RF shortness of breath or wheezing cholecalciferol (vitamin D3) 25 mcg PO DAILY 90 tabs 0RF Coding Level of Care Code Est Pt Level 4 (53320) Diagnoses Nicotine dependence with current use F17.200 Additional Codes FARZAD-7 Assessment Billing - FARZAD-7 Assessment Tool: FARZAD-7 Assessment 28857 ([id number]) Vital Signs *Quality* - CPT code: 24416 - 4-10 Minutes ([id number]) Time Spent (min) 36
[2024-02-01 08:03] VITALS: BP 108/70; PULSE 66; O2SAT 99; BMI 43.2
== END 2024-02-01 09:55 | disposition home or self-care (01) ==
PROVIDERS: PCP Internal Medicine; Visit Provider Nurse Practitioner Primary Care
DX: F17.210 Nicotine dependence, cigarettes, uncomplicated (principal)
CPT/HCPCS: 99214; 99406

== ENCOUNTER 2024-03-21 11:23 | Outpatient (REF) | payer OTHER, SELFPAY ==
--- NOTE | ~2024-03-21 | XR_ITS ---
EXAMINATION: XR PELVIS CLINICAL INFORMATION: Pain. COMPARISON: Pelvic radiograph 12/20/2023. TECHNIQUE: AP view of the pelvis. FINDINGS: Stable appearance of a total right hip arthroplasty without evidence of hardware fracture or loosening. No acute fractures or subluxation. 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 Symmetric SI joints. Pelvic rim and pubic symphysis are maintained. Redemonstration of a few pelvic phleboliths. No significant soft tissue abnormality. XR/XR pelvis 1-2V IMPRESSION: 1. No acute fractures or subluxation. 2. Stable appearance of a total right hip arthroplasty.
== END 2024-03-21 11:24 | disposition home or self-care (01) ==
LOC: HO.HOSX 11:23
PROVIDERS: Visit Provider Orthopaedic Surgery
DX: M25.551 Pain in right hip (principal); Z96.641 Presence of right artificial hip joint
CPT/HCPCS: 72170; 99212

== ENCOUNTER 2024-03-21 12:31 | Outpatient (AMB) | payer MEDICARE, MEDICAID, SELFPAY ==
--- NOTE | 2024-03-21 12:39 | A.OFFVIS_ITS ---
Vital Signs 03/21/24 12:42 Height 5 ft 8 in Weight 284 lb BMI 43.2 Intake Visit Reasons: OV-RT WILLIE 09/18/23 NE follow up Intake Note: Christine is a 33 year old female who presents today for a follow up of her right hip, s/p Right WILLIE 09/18/23. Patient reports that she is doing well, she is walking without ambulatory devices. She is still working with physical therapy on quad strength, she has one session left and is looking to get a new script for additional visits. Allergies tramadol [Ultram] Allergy (Intermediate, Verified 02/01/24 08:17) rash acetaminophen [From TYLENOL] Adverse Reaction (Mild, Verified 02/01/24 08:17) STOMACH UPSET HPI HPI OV-RT WILLIE 09/18/23 NE follow up: Details: Patient presents to the office today s/p RTHA on 09/18/[address] Lynch. She reports that she has been attending physical therapy and making good progress. She has noticed walking better and with less of a limp. She has one more physical therapy visit and would like to extend her sessions as she feels she continues to make progress surrounding her gait. [facility] Medical History (Updated 02/01/24 @ 09:33 by ALEXA Elias) Femur fracture Morbid obesity with BMI of 45.0-49.9, adult History of femur fracture Smoker Resides in longterm facility Hepatitis C Depression with anxiety Asthma Hepatitis C antibody test positive Hx of hepatitis C Skin lesion of left arm Numerous moles Numbness and tingling of both upper extremities Suicide attempt Polysubstance abuse Bipolar 1 disorder Surgical History History of right hip replacement History of hip surgery (~02/27/23) History of hip surgery (12/30/22) Family History Father Sleep apnea Diabetes mellitus Diabetic neuropathy Mother Multiple sclerosis Colitis Fibromyalgia Maternal Grandfather CVD (cardiovascular disease) Kidney disease Heart disease Maternal Grandmother Lupus Arthritis Rheumatoid arthritis Paternal Grandfather No problems noted. Paternal Grandmother No problems noted. Brother No problems noted. Sister No problems noted. Son No problems noted. Son No problems noted. Social History Household Members: None Household Members Other:: currently in SNF for rehab-[facility] Housing: House Housing Other:: [facility] Are you a primary nursing care attendant to a significant other at home: No Do you presently have visiting nurse or other home services: No Unable to assess alcohol history related to: Unknown Alcohol intake: former Comment: wheelchair due to prior hip surgeries Patient Tobacco Use Status: Current everyday Tobacco user Tobacco use type: Cigarette Cigarette Packs Per Day: 0.5 Cigarettes Per Day: 6 Years Smoked: 15 e-Cigarette/Vaping Use: Never Used Second Hand Smoke Exposure: No Substance Use Type: Marijuana Advance Directives Date on File: 02/22/23 service: No Current occupational status: unemployed and disabled Cognitive needs: No Hearing needs: No Vision needs: No Physical Exam Vital Signs: BMI result Body Mass Index 43.2 Const General: cooperative, healthy appearing and no acute distress Resp Effort & Inspection: normal respiratory effort and able to speak in complete sentences Cardio Rate: regular rate Peripheral pulses: Peripheral pulses 2+ throughout GI Palpation (GI): Soft to palpation Skin Lesions: no lesions Rashes: no rashes Extrem Other: Right hip incision site is c/d/i and healed. No erythema or edema. No signs of infection. No pain with ROM. NVI. Assessment & Plan Assessment & Plan (1) S/P total right hip arthroplasty: Code(s): Z96.641 - Presence of right artificial hip joint Category: Medical Plan Ms. Bean is a 33 yo female who presents today for a follow up of her right hip, s/p Right WILLIE 09/18/23. Patient reports that she is doing well, she is walking without ambulatory devices. She is still working with physical therapy on quad strength, she has one session left and is looking to get a new script for additional visits. A new physical therapy order has bee placed to extend her visits. X-rays obtained in the office today reveal right WILLIE in expected post operative position with no hardware complications or evidence of loosening Orders: Orders PT Evaluation and Treatment Today Alexandrea Hopper PA-C Z96.641 - Presence of right artificial hip joint XR pelvis 1-2V Today Isidro Lynch MD M25.559 - Pain in unspecified hip Coding Level of Care Code Global (27986) Diagnoses S/P total right hip arthroplasty Z96.641
[2024-03-21 12:42] VITALS: BMI 43.2
== END 2024-03-21 13:02 | disposition home or self-care (01) ==
PROVIDERS: PCP Internal Medicine; Visit Provider Physician Assistant
DX: Z47.1 Aftercare following joint replacement surgery (principal); Z96.641 Presence of right artificial hip joint
CPT/HCPCS: 99213

== ENCOUNTER 2024-03-24 10:00 | Outpatient (RCR) | payer OTHER, SELFPAY ==
--- NOTE | 2024-01-14 10:55 | MHC.PT.EP ---
[facility] [place] [facility] [place] [facility] [place] [facility] [address] Shawna Alcantara [address] [phone] F: [phone] F: [phone] F: [phone] F: [phone] Physical Therapy Plan of Care Date of Evaluation: 01/14/24 Date of Surgery: 09/18/2023 Diagnosis: s/p R WILLIE Assessment: Patient is a 33 year old female presenting to PT s/p R WILLIE on 09/18/2023. She presents today with impairments in pain, hip strength, quad strength, gait mechanics. Pt's current occupation is none, with baseline physical activities including ADLs, ambulating, stair negotiation, transfers. 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 Clinical presentation today is most consistent with signs and sx associated with R WILLIE 09/18/2023 and pt will benefit from skilled PT 2 week x 4 weeks to address the following problems and impairments noted upon evaluation: pain, hip strength, quad strength, gait mechanics. These problems limit the patient with the following functional activities: ADLs, ambulating, stair negotiation, transfers. The prescribed treatment plan of care is medically necessary. Co-morbidities of hepatitis C, bipolar, hx susbtance abuse, 12/29/2022 screw for fx, 02/21/2023 revision w/ IMN, strict hip precautions according to ortho note were identified and taken into considerations of plan of care. Pt was educated on HEP, role of PT, prognosis, POC. Frequency and Duration: The patient will be seen 2 x week x 4 weeks Short Term Goals: Pt will demonstrate improved hip MMT strength by 1/3 grade in 2 weeks for improved lumbopelvic stability. Pt will demonstrate improved knee MMT strength by 1/3 grade in 2 weeks. Pt will demonstrate ability to perform STS with equal weight distribution in 2 weeks. [employer] Goals: Pt will demonstrate improved LEFI score by 9 points in 4 weeks for improved functional mobility. Pt will demonstrate ability to ambulate with normal mechanics in 4 weeks for return to PLOF. Pt will demonstrate ability to negotiate stairs with step over step pattern in 4 weeks for improved access to her home. Treatment Plan: Modalities to reduce pain, spasms and effusion. Manual therapy to restore motion and function. Therapeutic exercise to improve strength and flexibility. Neuromuscular re-education for posture and balance. Therapeutic activities to return to functional activities of daily living. Electronically signed by: Payton Oliveira, PT, DPT, ATC Please sign and return to therapist. Thank you for your referral.
--- NOTE | 2024-04-01 12:04 | MHC.PT.DC ---
[facility] [place] Office [place] Office [place] Office [address] Shawna Alcantara [address] [phone] F: [phone] F: [phone] F: [phone] F: [phone] Physical Therapy Discharge Report Diagnosis: s/p R WILLIE Date of Surgery: 09/18/2023 Date of Evaluation: 01/14/24 Date of Discharge: 04/01/24 Treatments to Date: 15 Cancellations to Date: 5 No Shows to Date: 4 Discharge Status: Visit Non-compliance Discharge Summary: Pt has failed to comply with [facility] attendance policy no showing her last 2 scheduled visits and no showing 4 total since start of care. Pt to be d/c at this time per our policy. Electronically signed by: Payton Oliveira, PT, DPT, ATC Please sign and return to therapist. Thank you for your referral.
== END 2024-04-01 12:04 | disposition home or self-care (01) ==
LOC: HO.PTCHIC 10:00
PROVIDERS: PCP Internal Medicine; Visit Provider Orthopaedic Surgery
DX: Z96.641 Presence of right artificial hip joint (principal)
CPT/HCPCS: 97110; 97140; 97162; 97530